=== PATIENT | female | born 1940 | race Caucasian/White ===

== ENCOUNTER 2017-03-19 11:24 | Inpatient (IN) | payer MEDICARE ==
[~2017-03-19] VITALS: Ht 157.5 cm; Wt 80.7 kg
[~2017-03-19 11:24] MED LIST: APIX5TAB PO; HYDR-2666 PO; HYDR12.53 PO; LEVE500T56 PO; LEVO25TA4 PO; LEVO75TA5 PO; METF500T4 PO; METO25TA9 PO; SIMV40TA3 PO; SIMV5TAB5 PO; SULF1TAB24 PO; ZOLP5TAB5 PO
--- NOTE | 2017-03-19 11:43 | EKG ---
[facility] [address] [place] [address] Test Date: 2017-03-19 Test Time: 11:39:08 Pat Name: ALVIN CHAUHAN Department: Room: Gender: F Survey Compiler: : 1940 Requested By: ALEXYS WILLINGHAM Order Number: [id number] Reading MD: Lorraine Sung Measurements Intervals [place] Rate: 92 P: VT: QRS: 11 QRSD: 124 T: 156 QT: 386 QTc: 483 Interpretive Statements ATRIAL FIBRILLATION LVH WITH REPOLARIZATION ABNORMALITY Electronically Signed On 03-21-2017 17:50:44 CDT by Lorraine Sung
[2017-03-19 12:03] LABS: BASO # 0.1 x10^3/uL (0.0-0.2); BASO % 1 % (0-3); EOS % 1 % (0-3); HEMATOCRIT 36.5 % (36.0-47.0); HEMOGLOBIN 12.1 g/dL (12.0-15.5); LYMPH # 1.2 x10^3/uL (1.0-4.8); LYMPH % 16 % (24-48); MEAN CORPUSCULAR HEMOGLOBIN 31 pg (25-35); MEAN CORPUSCULAR HGB CONC 33 g/dL (31-37); MEAN CORPUSCULAR VOLUME 92 fL (79-100); MONO % 8 % (0-9); NEUT % 74 % (31-73); PLATELET COUNT 298 x10^3/uL (140-400); RED BLOOD COUNT 3.97 x10^6/uL (3.50-5.40); RED CELL DISTRIBUTION WIDTH 15.4 % (11.5-14.5); WHITE BLOOD COUNT 7.7 x10^3/uL (4.0-11.0)
[2017-03-19 12:16] LABS: CALCIUM 9.2 mg/dL (8.5-10.1); GFR 53.8; POTASSIUM 3.8 mmol/L (3.5-5.1)
[2017-03-19] MEDS ORDERED: IV NORMAL SALINE 1000ML BAG 1,000 ML IV SCH (12:21)
[2017-03-19] MEDS ORDERED: ACETAMINOPHEN 325 MG TABLET. PO PRN (12:30)
[2017-03-19] MEDS ORDERED: ONDANSETRON PF 4 MG/2 ML VIAL. IV PRN (12:30)
--- NOTE | 2017-03-19 12:31 | PHYS DOC ---
Past Medical History Past Medical History: A-Fib, CHF, CVA, Diabetes-Type II, High Cholesterol, Hypertension, Hypothyroid Additional Past Medical Histor: bladder infection heart cath cardiomyopathy possible CHF Past Surgical History: Other Additional Past Surgical Histo: heart cath Alcohol Use: None Drug Use: None Adult General Chief Complaint Chief Complaint: CHEST PAIN HPI HPI This 76-year-old female who's had worsening exertional type chest pain for the last several weeks and had an acute episode today that was significant loss she was trying to walk. She states she had significant midsternal chest pressure as well as shortness of breath that resolved when she was able to rest. Upon arrival in the rest of patient is in no distress at this time saturating near 100% on room air. She is chest pain-free at this time. Patient does have history of atrial fibrillation on Xarelto therapy. She does not remember when her last heart catheterization was. She follows with Dr. Luci bolivar for her atrial fibrillation. Review of Systems Review of Systems Constitutional: Denies fever or chills [] Eyes: Denies change in visual acuity, redness, or eye pain [] HENT: Denies nasal congestion or sore throat [] Respiratory: Denies cough or shortness of breath [] Cardiovascular: No additional information not addressed in HPI [] GI: Denies abdominal pain, nausea, vomiting, bloody stools or diarrhea [] : Denies dysuria or hematuria [] Musculoskeletal: Denies back pain or joint pain [] Integument: Denies rash or skin lesions [] Neurologic: Denies headache, focal weakness or sensory changes [] Endocrine: Denies polyuria or polydipsia [] Current Medications Current Medications Current Medications Medications (Trade) Dose Ordered Sig/Kassie Start Time Stop Time Status Last Admin Dose Admin Acetaminophen (Tylenol) 650 mg PRN Q4HRS PRN 03/19/17 12:30 03/20/17 12:29 Ondansetron HCl (Zofran) 4 mg PRN Q8HRS PRN 03/19/17 12:30 03/20/17 12:29 Sodium Chloride 1,000 ml @ 100 mls/hr Q10H 03/19/17 12:21 03/20/17 12:20 03/19/17 12:21 100 MLS/HR Allergies Allergies Allergies Coded Allergies Type Severity Reaction Last Updated Verified I S O L A T I O N *CONTACT* Allergy Unknown 04/10/16 Yes No Known Medication Allergies Allergy Unknown 04/10/16 Yes Physical Exam Physical Exam Constitutional: Well developed, well nourished, no acute distress, non-toxic appearance. [] HENT: Normocephalic, atraumatic, bilateral external ears normal, oropharynx moist, no oral exudates, nose normal. [] Eyes: PERRLA, EOMI, conjunctiva normal, no discharge. [] Neck: Normal range of motion, no tenderness, supple, no stridor. [] Cardiovascular:Heart rate regular rhythm, no murmur [] Lungs & Thorax: Bilateral breath sounds clear to auscultation [] Abdomen: Bowel sounds normal, soft, no tenderness, no masses, no pulsatile masses. [] Skin: Warm, dry, no erythema, no rash. [] Back: No tenderness, no CVA tenderness. [] Extremities: No tenderness, no cyanosis, no clubbing, ROM intact, no edema. [] Neurologic: Alert and oriented X 3, normal motor function, normal sensory function, no focal deficits noted. [] Psychologic: Affect normal, judgement normal, mood normal. [] Current Patient Data Vital Signs Vital Signs Date Time Temp Pulse Resp B/P (MAP) Pulse Ox O2 Delivery O2 Flow Rate FiO2 03/19/17 12:00 98 22 133/82 (99) 92 Room Air 03/19/17 11:33 97.8 97.8 Lab Values Laboratory Tests Test 03/19/17 11:52 03/19/17 11:55 POC Troponin I 0.02 ng/ml (<0.08) White Blood Count 7.7 x10^3/uL (4.0-11.0) Red Blood Count 3.97 x10^6/uL (3.50-5.40) Hemoglobin 12.1 g/dL (12.0-15.5) Hematocrit 36.5 % (36.0-47.0) Mean Corpuscular Volume 92 fL (79-100) Mean Corpuscular Hemoglobin 31 pg (25-35) Mean Corpuscular Hemoglobin Concent 33 g/dL (31-37) Red Cell Distribution Width 15.4 % (11.5-14.5) H Platelet Count 298 x10^3/uL (140-400) Neutrophils (%) (Auto) 74 % (31-73) H Lymphocytes (%) (Auto) 16 % (24-48) L Monocytes (%) (Auto) 8 % (0-9) Eosinophils (%) (Auto) 1 % (0-3) Basophils (%) (Auto) 1 % (0-3) Neutrophils # (Auto) 5.7 x10^3uL (1.8-7.7) Lymphocytes # (Auto) 1.2 x10^3/uL (1.0-4.8) Monocytes # (Auto) 0.6 x10^3/uL (0.0-1.1) Eosinophils # (Auto) 0.1 x10^3/uL (0.0-0.7) Basophils # (Auto) 0.1 x10^3/uL (0.0-0.2) Prothrombin Time 23.0 SEC (11.7-14.0) H Prothrombin Time INR 2.2 (0.8-1.1) H PTT 43 SEC (24-38) H Sodium Level 139 mmol/L (136-145) Potassium Level 3.8 mmol/L (3.5-5.1) Chloride Level 100 mmol/L (98-107) Carbon Dioxide Level 27 mmol/L (21-32) Anion Gap 12 (6-14) Blood Urea Nitrogen 19 mg/dL (7-20) Creatinine 1.0 mg/dL (0.6-1.0) Estimated GFR (Cockcroft-Gault) 53.8 Glucose Level 128 mg/dL (70-99) H Calcium Level 9.2 mg/dL (8.5-10.1) Troponin I Quantitative 0.022 ng/mL (0.000-0.055) Laboratory Tests 03/19/17 11:55 Laboratory Tests 03/19/17 11:55 EKG EKG Initial EKG taken at 1139 shows a irregular rhythm with a rate of 92 bpm with what appears to be multiple areas of ischemia. Lead [address] depression as well as leads V5 and V6. This EKG does not meet STEMI criteria Repeat EKG taken at 1201 shows continued irregular rhythm with a rate of 83 bpm with the same leads showing some ST depression in lead 1, V5, V6. Radiology/Procedures Radiology/Procedures One view of the chest as interpreted by me shows no acute cardiopulmonary process. Course & Med Decision Making Course & Med Decision Making Pertinent Labs and Imaging studies reviewed. (See chart for details) 76-year-old female who's having worsening exertional angina symptoms will be admitted to the hospital with cardiology consult. Cardiology team was notified and came down the bedside to evaluate the patient. Sonia with cardiology believes the patient may be able to go to lab later today for her symptoms that she has concerning findings on EKG and her symptoms seem to be cardiac related. Her i-STAT troponin was 0.0 to. Her EKG has some concerning ST findings as mentioned in the interpretation section of this note. Her portable view of her chest did not reveal any acute abnormality. The case was discussed with the hospitalist, Dr. Campos, for admission. The cardiology team evaluated the patient and states she will be going to r&d lab technician later today and will be kept nothing by mouth at this time. I discussed this information with the hospitalist , Dr. Campos, who agreed with this plan and the need for admission. Dragon Disclaimer Dragon Disclaimer This electronic medical record was generated, in whole or in part, using a voice recognition dictation system. Departure Departure Impression: Primary Impression: Chest pain Disposition: ADMITTED INPATIENT Admitting Physician: Neelam Campos Condition: STABLE Referrals: NEELAM CAMPOS MD (PCP) ALEXYS WILLINGHAM DO March 19, 2017 12:31
--- NOTE | 2017-03-19 12:31 | RAD ---
Indication chest pain. A single view of the chest was obtained and is compared to an examination 07/10/2016. Heart size is at the upper limits of normal but unchanged. There is no congestive heart failure. There is no focal infiltrate. Prominent right hilum, consistent with slightly enlarged pulmonary artery is noted similar to the previous exam. An acute parenchymal infiltrate is not seen. Significant pleural fluid is not present. There is no pneumothorax. There has not been a significant change in the appearance of the chest compared to the prior exam. IMPRESSION: No acute process. No significant change
--- NOTE | 2017-03-19 12:57 | PDOC2 ---
RAYA LOCKWOOD [employer]OR [employer] 03/19/17 1257: CARDIAC CONSULT DATE OF CONSULT Date of Consult DATE: 03/19/17 TIME: 12:38 REASON FOR CONSULT Reason for Consult: unstable angina REFERRING PHYSICIAN Referring Physician: Dr. Indra Becerra SOURCE Source: Chart review, Patient HISTORY OF PRESENT ILLNESS HISTORY OF PRESENT ILLNESS 76 year old female with chest pain since 01/14/2017 when she started Levaquin as treatment for UTI. Thought pain was related to antibiotics. Pain substernal and ? stabbing - patient with difficulty describing pain. Now occurs with minimal activity such as washing dishes as well as attempting to walk outside of house. Has about 5 episodes per day lasting approximately 1 minute each and alleviated with rest. Associated with dizziness and difficulty "catching a breath" but not diaphoresis or nausea. Known history of hypertrophic obstructive cardiomyopathy and most recent echo demonstrated a mean gradient of 88 mm Hg and 122 with Valsalva. EKG with mild ST segment depression laterally and V1 (change from 06/2016). Currently pain free on stretcher in ER. Initial troponin not consistent with ACS. Reason for Visit: UA PAST MEDICAL HISTORY Cardiovascular: AFIB (s/p DCCV 06/01/2016), HTN, Hyperlipidemia, Other (HOCM; moderate MR; varicose veins - s/p bilateral RF ablation of GSV) Pulmonary: No pertinent hx CENTRAL NERVOUS SYSTEM: CVA (03/2016) GI: No pertinent hx Heme/Onc: No pertinent hx Hepatobiliary: No pertinent hx Musculoskeletal: Osteoarthritis Rheumatologic: No pertinent hx Infectious disease: No pertinent hx ENT: No pertinent hx Renal/: No pertinent hx, UTI (01/2017) Endocrine: Diabetes, Hypothyroidism Dermatology: No pertinent hx PAST SURGICAL HISTORY Past Surgical History: Breast Biopsy (lumpectomy), Hysterectomy, Other ( bladder suspension; D & C; DCCV) FAMILY HISTORY Family History: Cancer, Heart Disease, Other SOCIAL HISTORY Smoke: No ALCOHOL: none Drugs: None Lives: with Family ALLERGIES ALLERGIES: Coded Allergies: I S O L A T I O N *CONTACT* (Verified Allergy, Unknown, 04/10/16) mrsa screen + No Known Medication Allergies (Verified Allergy, Unknown, 04/10/16) ROS General: No: Chills, Night Sweats, Fatigue, Malaise, Appetite, Other PSYCHOLOGICAL ROS: No: Anxiety, Behavioral Disorder, Concentration difficultie , Decreased libido, Depression, Disorientation, Hallucinations, Hostility, Irritablity, Memory difficulties, Mood Swings, Obsessive thoughts, Physical abuse, Sexual abuse, Sleep disturbances, Suicidal ideation, Other Eyes: Yes Uses glasses, No Blurry vision, No Decreased vision, No Double vision, No Dry eyes, No Excessive tearing, No Eye Pain, No Itchy Eyes, No Loss of vision, No Photophobia , No Scotomata, No Uses contacts, No Other HEENT: No: Heacaches, Visual Changes, Hearing change, Nasal congestion, Nasal discharge, Oral lesions, Sinus pain, Sore Throat, Epistaxis, Sneezing, Snoring, Tinnitus, Vertigo, Vocal changes, Other ALLERGY AND IMMUNOLOGY: YES: Hives Hematological and Lymphatic: No: Bleeding Problems, Blood Clots, Blood Transfusions, Brusing, Night Sweats, Pallor, Swollen Lymph Nodes, Other ENDOCRINE: No: Breast Changes, Galactorrhea, Hair Pattern Changes, Hot Flashes , Malaise/lethargy, Mood Swings, Palpitations, Polydipsia/polyuria, Skin Changes , Temperature Intolerance, Unexpected Weight Changes, Other Respiratory: YES: Shortness of breath, No: Cough, Hemoptysis, Orthopnea, Pleuritic Pain, SOB with excertion, Sputum Changes, Stridor, Tachypnea, Wheezing, Other Cardiovascular: yes Chest Pain Gastrointestinal: No Nausea, No Vomiting, No Abdominal Pain, No Diarrhea, No Constipation, No Melena, No Hematochezia, No Other Genitourinary: No Dysuria, No Frequency, No Incontinence, No Hematuria, No Retention, No Discharge, No Urgency, No Pain, No Flank Pain, No Other Musculoskeletal: No Gait Disturbance, No Joint Pain, No Joint Stiffness, No Joint Swelling, No Muscle Pain, No Muscular Weakness, No Pain In:, No Swelling In:, No Other Neurological: No Behavorial Changes, No Bowel/Bladder ControlChng, No Confusion , No Dizziness, No Gait Disturbance, No Headaches, No Impaired Coord/balance, No Memory Loss, No Numbness/Tingling, No Seizures, No Speech Problems, No Tremors, No Visual Changes, No Weakness, No Other PHYSICAL EXAM General: Alert, Oriented X3, Cooperative, No acute distress HEENT: Atraumatic, PERRLA Lungs: Clear to auscultation, Normal air movement Heart: Regular rate, Normal S1, Normal S2, Other (3-4/6 LLSB and apical radiates to carotids) Abdomen: Normal bowel sounds, Soft, No tenderness Extremities: No edema, Normal pulses (2+ DP and PT bilaterally; 2+ radial) Skin: No rashes Neuro: Normal speech Psych/Mental Status: Mental status NL, Mood NL MUSCULOSKELETAL: Osteoarthritic changes both hands VITALS VITALS Vital Signs Date Time Temp Pulse Resp B/P (MAP) Pulse Ox O2 Delivery O2 Flow Rate FiO2 03/19/17 11:33 97.8 86 20 175/79 (111) 96 Room Air 97.8 LABS Lab: Laboratory Tests Test 03/19/17 11:52 03/19/17 11:55 Bedside Troponin I 0.02 ng/ml (<0.08) White Blood Count 7.7 x10^3/uL (4.0-11.0) Red Blood Count 3.97 x10^6/uL (3.50-5.40) Hemoglobin 12.1 g/dL (12.0-15.5) Hematocrit 36.5 % (36.0-47.0) Mean Corpuscular Volume 92 fL (79-100) Mean Corpuscular Hemoglobin 31 pg (25-35) Mean Corpuscular Hemoglobin Concent 33 g/dL (31-37) Red Cell Distribution Width 15.4 % (11.5-14.5) Platelet Count 298 x10^3/uL (140-400) Neutrophils (%) (Auto) 74 % (31-73) Lymphocytes (%) (Auto) 16 % (24-48) Monocytes (%) (Auto) 8 % (0-9) Eosinophils (%) (Auto) 1 % (0-3) Basophils (%) (Auto) 1 % (0-3) Neutrophils # (Auto) 5.7 x10^3uL (1.8-7.7) Lymphocytes # (Auto) 1.2 x10^3/uL (1.0-4.8) Monocytes # (Auto) 0.6 x10^3/uL (0.0-1.1) Eosinophils # (Auto) 0.1 x10^3/uL (0.0-0.7) Basophils # (Auto) 0.1 x10^3/uL (0.0-0.2) Sodium Level 139 mmol/L (136-145) Potassium Level 3.8 mmol/L (3.5-5.1) Chloride Level 100 mmol/L (98-107) Carbon Dioxide Level 27 mmol/L (21-32) Anion Gap 12 (6-14) Blood Urea Nitrogen 19 mg/dL (7-20) Creatinine 1.0 mg/dL (0.6-1.0) Estimated GFR (Cockcroft-Gault) 53.8 Glucose Level 128 mg/dL (70-99) Calcium Level 9.2 mg/dL (8.5-10.1) Troponin I Quantitative 0.022 ng/mL (0.000-0.055) IMAGES IMAGES CXR - no acute findings EKG EKG see HPI ECHOCARDIOGRAM ECHOCARDIOGRAM 06/2016: TTE The left ventricular systolic function is normal. The Ejection Fraction is estimated at 65-70%. There is normal LV segmental wall motion. Asymmetric septal hypertrophy. 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 LVOT gradient peak 178/mean 88 mm Hg at baseline and peak 204/mean 122 mm Hg with valsalva maneuver. Mild to moderate mitral regurgitation. Mild to moderate tricuspid regurgitation. There is moderate pulmonary hypertension. The PA pressure was estimated at 49 mmHg. There is no evidence of significant pericardial effusion. ASSESSMENT/PLAN ASSESSMENT/PLAN 1. unstable angina pain with minimal activity initial troponin WNL EKG with ST segment depression - mild - laterally and V1; no ST seg elevation hold ASA and hep gtt as OAC with Eliquis for atrial fib; continue BB given progressive nature of symptoms in last 2 months - cardiac cath recommended R/B/A discussed with patient and - agreeable to proceed - will schedule for this afternoon 2. HOCM MG of 88 mm Hg and 122 mm Hg with Valsalva ? may also be etiology of chest pain 3. PAF rate controlled with BB OAC with Eliquis 4. HLD continue statin therapy check FLP in a.m. 5. DM, II per primary service 6. hypothyroidism replacement therapy per primary service ADDENDUM @ 1430: INR 2.2; DISCUSSED WITH PRIMARY CEILING INSTALLER - WILL DELAY CATH UNTIL WEDNESDAY LFTS ORDERED REVIEWED OFFICE NOTE OF 02/22/2017; AST, ALT, ALK PHOS, T BILI ALL WNL Problems: GARCIA SR MD 03/19/17 1540: CARDIAC CONSULT ALLERGIES ALLERGIES: Coded Allergies: I S O L A T I O N *CONTACT* (Verified Allergy, Unknown, 04/10/16) mrsa screen + No Known Medication Allergies (Verified Allergy, Unknown, 04/10/16) ASSESSMENT/PLAN ASSESSMENT/PLAN Patient seen and examined. Agree with DOCUMENTATION WRITER's assessment and plan. Symptoms concerning for unstable angina. INR elevated without any Coumadin on board. Check LFTs. We will plan for cardiac catheterization on Wednesday. Continue Eliquis for atrial fibrillation. Thank you for your consultation. Problems: RAYA LOCKWOOD APRN March 19, 2017 12:57 GARCIA SR MD March 19, 2017 15:40
[2017-03-19 13:01] LABS: INR 2.2 (0.8-1.1)
[2017-03-19 14:40] LABS: ALBUMIN 3.6 g/dL (3.4-5.0); DIRECT BILIRUBIN 0.2 mg/dL (0.0-0.2); TOTAL BILIRUBIN 0.8 mg/dL (0.2-1.0); TOTAL PROTEIN 7.5 g/dL (6.4-8.2)
[2017-03-19 14:59] VITALS: BP 163/101
[2017-03-19 15:00] VITALS: BP 163/101
--- NOTE | 2017-03-19 18:23 | ACF ---
Admission Forms Criteria CARDIOLOGY GRG Clinical Indications for Admission to Inpatient Care ( Place 'X' for any and all applicable criteria): Hospital admission is needed for appropriate care of the patient because of ANY ONE of the following (1): [ ] I. Hemodynamic instability as indicated by ALL of the following (1)(2)(3) (4)(5) [ ]a) Vital signs or other findings not as expected for chronic patient condition or baseline [ ]b) Instability indicated by ANY ONE of the following: [ ]i) Hypotension [ ]ii) Symptomatic Tachycardia unresponsive to treatment ( e.g., analgesia, fluids, sedation as indicated) [ ]iii) Inadequate perfusion indicated by ANY ONE of the following: [ ] 1) Lactic acidosis (> 2 mmol/L) [ ] 2) New abnormal capillary refill (> 3 seconds) [ ] 3) Reduced urine output [ ] 4) New altered mental status [ ]iv) Orthostatic vital sign changes unresponsive to treatment (e.g., fluids) [ ]v) IV inotropic or vasopressor medication required to maintain adequate blood pressure or perfusion [ ] II. Severe heart failure as indicated by ANY ONE of the following(17)(18) [ ]a) Respiratory distress [ ]b) Hypotension [ ]c) Anasarca (refractory to outpatient therapy) [ ]d) Cardiac arrhythmias of immediate concern [ ]e) Myocardial ischemia [ ] III. Cardiac arrhythmias or findings of immediate concern indicated by ANY ONE of the following (19)(20): [ ] a) Heart rhythms that are inherently dangerous or unstable indicated by ANY ONE of the following (21)(22)(23): [ ] i) Resuscitated ventricular fibrillation or cardiac arrest [ ] ii) Ventricular escape rhythm [ ] iii) Sustained ventricular tachycardia (30 seconds or more of ventricular rhythm at greater than 100 beats per minute) [ ] iv) Nonsustained ventricular tachycardia and ANY ONE of the following: [ ] 1) Suspected cardiac ischemia as cause or consequence of ventricular tachycardia [ ] 2) In setting of acute myocarditis [ ] b) Unstable cardiac conduction defects indicated by ANY ONE of the following(23)(24)(25) [ ] i) Type II second-degree atrioventricular block [ ]ii) Third-degree atrioventricular block [ ]iii) New-onset left bundle branch block with suspected myocardial ischemia [ ]c) Any heart rhythm and ANY ONE of the following (21)(22)(26)(27) (28) [ ] i) Continuous long-term ECG monitoring needed (e.g., initiation of drug requiring monitoring for more than 24 hours) [ ] ii) Patient has automatic implanted cardioverter defibrillator that is repeatedly firing, malfunctioning, or in need of immediate adjustment of settings beyond the scope of ambulatory or observation care [ ]d) Heart rhythms of concern due to ANY ONE of the following: [ ] i) Hypotension [ ] ii) Respiratory distress [ ] iii) Association with other significant symptoms (e.g., bradycardia with syncope or ongoing dizziness, supraventricular tachycardia with chest pain (14)(15)(17) [ ] IV. Monitoring for cardiac contusion beyond the scope of observation care needed [A](30)(31)(32) [ ] V. Surgical or device complication (e.g., valve replacement complication , pacemaker dysfunction) (35)(41)(44)(45)(46) [ ] . Inpatient palliative care needed. [B](49) Also use Inpatient Palliative Care Criteria [ ] VII. Nonbacterial thrombotic (marantic) endocarditis (36)(43)(47)(48) [X] VIII. Cardiology condition, symptom, or finding for which emergency and observation care has failed or are not considered appropriate. [ ] IX. Acute valvular disease requiring inpatient as indicated by ANY ONE of the following (41) [ ]a) Acute valvular regurgitation (42) [ ]b) Noninfectious valvulitis (43) [ ]c) Obstructive valve thrombosis [ ]d) Paravalvular leak [ ]e) Other significant valvular disorder remaining after emergency or observation level of care (as appropriate) [ ]X. Pericardial disease requiring inpatient treatment as indicated by ANY ONE of the following (33)(34)(35)(36)(37) [ ]a) Suspected tamponade (38)(39)(40) [ ]b) Hemopericardium [ ]c) Other significant pericardial disorder remaining after emergency or observation level of care (as appropriate) [ ] XI. Cardiac ischemia beyond scope of emergency and observation care. [ ] XII. Hypertension requiring inpatient treatment as indicated by ANY ONE of the following (6)(7)(8) [ ]a) SBP greater than 220 mm Hg or DBP greater than 120 mmHg despite treatment [ ]b) SBP greater than 140 mm Hg or DBP greater than 100 mm Hg with evidence of acute end organ damage as indicated by ANY ONE of the following [ ] i) Encephalopathy [ ] ii) Acute renal failure as indicated by new onset of ANY ONE of the following (9)(10)(11)(12)(13) [ ]1) 3-fold rise in serum creatinine from baseline [ ]2) Serum creatinine greater than 4 mg/dL ( 354 micromoles/L) with acute rise greater than 0.5 mg/dL (44.2 micromoles/L) [ ]3) Reduction of more than 75% in estimated glomerular filtration rate from baseline [ ]4) Estimated glomerular filtration rate less than 35 mL/min/1.73m2 (0.59 mL/sec/1.73m2) in child up to 18 years of age [ ]5) Cessation of urine output indicated by ALL of the following [ ]A. Adequate volume status [ ]B. Inadequate urine output as indicated by ANY ONE of the following [ ]a. Urine output less than 0.3 mL/kg/hr for 24 hours [ ]b. Anuria (urine output less than 0.1 mL/kg/hr) for 12 hours [ ] iii) Aortic dissection [ ] iv) Myocardial Ischemia [ ] v) Left ventricular heart failure [ ]vi) Retinal Hemorrhage [ ]vii) Other significant finding [ ]c) Hypertension in child requiring inpatient treatment as indicated by ALL of the following(14)(15)(16) [ ] i) Outpatient treatment not effective, not available, or not appropriate [ ]ii) SBP or DBP greater than 95th percentile for age [ ]iii) Evidence of acute end organ damage as indicated by ANY ONE of the following [ ]1) Altered mental status [ ]2) Acute renal failure as indicated by new onset of ANY ONE of the following(9)(10)(11)(12)(13) [ ]A. 3-fold rise in serum creatinine from baseline [ ]B. Serum creatinine greater than 4 mg/dL (354 micromoles/L) with acute rise greater than 0.5 mg/dL (44.2 micromoles/L) [ ]C. Reduction of more than 75% in estimated glomerular filtration rate from baseline [ ]D. Estimated glomerular filtration rate less than 35 mL/min/1.73m2 (0.59 mL/sec/1.73m2) in child up to 18 years of age [ ]E. Cessation of urine output indicated by ALL of the following [ ]a. Adequate volume status [ ]b. Inadequate urine output as indicated by ANY ONE of the following [ ]i) Urine output less than 0.3 mL/kg/hr for 24 hours [ ]ii) Anuria ( urine output less than 0.1 mL/kg/hr) for 12 hours [ ]3) Severe headache [ ]4) Visual disturbance [ ]5) Retinal hemorrhage [ ]6) Other significant finding [ ]XIII. Complications of transplanted heart indicated by ANY ONE of the following(61): [ ]a) Acute graft rejection requiring inpatient management (eg, intravenous immunosuppression)(62)(63) [ ]b) Acute graft heart failure indicated by ANY ONE of the following(64): [ ]i) Hemodynamic instability [ ]ii) Cardiac arrhythmias of immediate concern [ ]iii) Pulmonary edema that is very severe (eg, mechanical ventilation needed, imminent or likely, need for 100% oxygen to keep oxygen saturation above 90%) [ ]iv) Pulmonary edema that is persistent as indicated by ALL of the following: [ ]1) New need for oxygen therapy to keep oxygen saturation above 90% (or increased FiO2 need from baseline) [ ]2) Has not improved sufficiently with emergency department or observation care IV diuretics or other heart failure treatments[E] [ ]v) Altered mental status that is severe or persistent [ ]vi) Increased creatinine (new on laboratory test) with reduction of more than 50% in estimated glomerular filtration rate from baseline [ ]vii) Progressively (ongoing) rising creatinine (known from past laboratory test) with reduction of more than 25% in estimated glomerular filtration rate from baseline [ ]viii) Acute renal failure [ ]ix) Acute peripheral ischemia (eg, examination shows pulseless, cool, mottled, or cyanotic extremity) [ ]x) Pulmonary artery catheter monitoring needed [ ]xi) Other sign or symptom of heart failure requiring inpatient treatment (ie, too severe or not responsive to outpatient and observation care treatment) [ ]c) Infection requiring inpatient management (eg, Hemodynamic instability, need for intravenous antimicrobial treatment)(66)(67)(68)(69)(70) [ ]d) Cardiac allograft vasculopathy requiring inpatient management ( eg evidence of cardiac ischemia)(71) [ ]e) Other complication of transplanted heart (eg, stroke, severe pulmonary hypertension, severe valvular dysfunction) requiring inpatient management(72) The original [facility] content created by [facility] has been revised. The portions of the content which have been revised are identified through the use of italic text or in bold, and [facility] has neither reviewed nor approved the modified material. All other unmodified content is copyright [facility]. Please see references footnoted in the original [facility] edition 2016 Admission Criteria Met?: Yes KUMAR KIM March 19, 2017 18:23
[2017-03-19] MEDS ORDERED: FUROSEMIDE 20 MG/2 ML VIAL. IVP ONE (18:45)
[2017-03-19 19:20] VITALS: BP 180/77
[2017-03-19] MEDS: SIMVASTATIN 40 MG TABLET. PO SCH (20:34)
[2017-03-19] MEDS: levETIRAcetam 500 MG TABLET PO SCH (20:34)
[2017-03-19] MEDS ORDERED: ZOLPIDEM 5 MG TABLET. PO SCH (21:00)
[2017-03-19] MEDS ORDERED: ZOLPIDEM 5 MG TABLET. PO PRN (21:00)
[2017-03-19 23:47] VITALS: BP 135/79
[2017-03-20 03:00] VITALS: BP 120/68
[2017-03-20 06:13] LABS: CHOLESTEROL/HDL RATIO 2.5
[2017-03-20] MEDS: LEVOTHYROXINE 75 MCG TABLET PO SCH (06:37)
[2017-03-20 07:00] VITALS: BP 148/89
[2017-03-20] MEDS: metFORMIN 500 MG TABLET PO SCH ×2 (07:40→17:06)
[2017-03-20] MEDS: levETIRAcetam 500 MG TABLET PO SCH ×2 (07:40→20:39)
[2017-03-20] MEDS: APIXABAN 5 MG TABLET. PO SCH ×2 (07:40→20:39)
[2017-03-20] MEDS: hydroCHLOROthiazide 25 MG TABLET PO SCH (07:40)
[2017-03-20] MEDS: METOPROLOL SUCC 24HR ER 25 MG TAB.ER.24H. PO SCH (07:42)
[2017-03-20 11:00] VITALS: BP 149/67
--- NOTE | 2017-03-20 11:18 | PDOC ---
PROGRESS NOTES Subjective Subjective Patient seen and examined The patient is more comfortable today. Objective Objective Vital Signs Date Time Temp Pulse Resp B/P (MAP) Pulse Ox O2 Delivery O2 Flow Rate FiO2 03/20/17 08:00 Room Air 03/20/17 07:42 112 148/89 03/20/17 07:00 98.0 18 98 98.0 Intake and Output 03/20/17 07:00 Intake Total 360 ml Output Total 1800 ml Balance -1440 ml Intake Oral 360 ml Output Urine Total 1800 ml # Voids 4 Physical Exam Abdomen: Normal bowel sounds Heart: Regular rate Extremities: No edema General: No acute distress HEENT: Atraumatic Lungs: Clear to auscultation Assessment Assessment Problems Medical Problems: (1) Chest pain Status: Acute 1. unstable angina pain with minimal activity, improved today initial troponin WNL EKG with ST segment depression - mild - laterally and V1; no ST seg elevation hold ASA and hep gtt as OAC with Eliquis for atrial fib; continue BB given progressive nature of symptoms in last 2 months - cardiac cath recommended Due to elevated INR catheter tentatively scheduled for Wednesday 2. HOCM MG of 88 mm Hg and 122 mm Hg with Valsalva ? may also be etiology of chest pain 3. PAF rate controlled with BB OAC with Eliquis 4. HLD continue statin therapy 5. DM, II per primary service 6. hypothyroidism replacement therapy per primary service Comment Review of Relevant I have reviewed the following items ariadna (where applicable) has been applied. Labs Laboratory Tests Test 03/19/17 11:52 03/19/17 11:55 03/19/17 18:00 03/20/17 00:35 Bedside Troponin I 0.02 ng/ml (<0.08) White Blood Count 7.7 x10^3/uL (4.0-11.0) Red Blood Count 3.97 x10^6/uL (3.50-5.40) Hemoglobin 12.1 g/dL (12.0-15.5) Hematocrit 36.5 % (36.0-47.0) Mean Corpuscular Volume 92 fL (79-100) Mean Corpuscular Hemoglobin 31 pg (25-35) Mean Corpuscular Hemoglobin Concent 33 g/dL (31-37) Red Cell Distribution Width 15.4 % (11.5-14.5) Platelet Count 298 x10^3/uL (140-400) Neutrophils (%) (Auto) 74 % (31-73) Lymphocytes (%) (Auto) 16 % (24-48) Monocytes (%) (Auto) 8 % (0-9) Eosinophils (%) (Auto) 1 % (0-3) Basophils (%) (Auto) 1 % (0-3) Neutrophils # (Auto) 5.7 x10^3uL (1.8-7.7) Lymphocytes # (Auto) 1.2 x10^3/uL (1.0-4.8) Monocytes # (Auto) 0.6 x10^3/uL (0.0-1.1) Eosinophils # (Auto) 0.1 x10^3/uL (0.0-0.7) Basophils # (Auto) 0.1 x10^3/uL (0.0-0.2) Prothrombin Time 23.0 SEC (11.7-14.0) Prothromb Time International Ratio 2.2 (0.8-1.1) Activated Partial Thromboplast Time 43 SEC (24-38) Sodium Level 139 mmol/L (136-145) Potassium Level 3.8 mmol/L (3.5-5.1) Chloride Level 100 mmol/L (98-107) Carbon Dioxide Level 27 mmol/L (21-32) Anion Gap 12 (6-14) Blood Urea Nitrogen 19 mg/dL (7-20) Creatinine 1.0 mg/dL (0.6-1.0) Estimated GFR (Cockcroft-Gault) 53.8 Glucose Level 128 mg/dL (70-99) Calcium Level 9.2 mg/dL (8.5-10.1) Total Bilirubin 0.8 mg/dL (0.2-1.0) Direct Bilirubin 0.2 mg/dL (0.0-0.2) Aspartate Amino Transf (AST/SGOT) 26 U/L (15-37) Alanine Aminotransferase (ALT/SGPT) 22 U/L (14-59) Alkaline Phosphatase 77 U/L (46-116) Troponin I Quantitative 0.022 ng/mL (0.000-0.055) 0.023 ng/mL (0.000-0.055) 0.030 ng/mL (0.000-0.055) KV-Kng-S-Type Natriuretic Peptide 3516 pg/mL (0-449) Total Protein 7.5 g/dL (6.4-8.2) Albumin 3.6 g/dL (3.4-5.0) Test 03/20/17 02:30 Triglycerides Level 75 mg/dL (0-150) Cholesterol Level 131 mg/dL (0-200) LDL Cholesterol, Calculated 63 mg/dL (0-100) VLDL Cholesterol, Calculated 15 mg/dL (0-40) Non-HDL Cholesterol Calculated 78 mg/dL (0-129) HDL Cholesterol 53 mg/dL (40-60) Cholesterol/HDL Ratio 2.5 Laboratory Tests Test 03/19/17 11:52 03/19/17 11:55 03/19/17 18:00 03/20/17 00:35 Bedside Troponin I 0.02 ng/ml (<0.08) White Blood Count 7.7 x10^3/uL (4.0-11.0) Red Blood Count 3.97 x10^6/uL (3.50-5.40) Hemoglobin 12.1 g/dL (12.0-15.5) Hematocrit 36.5 % (36.0-47.0) Mean Corpuscular Volume 92 fL (79-100) Mean Corpuscular Hemoglobin 31 pg (25-35) Mean Corpuscular Hemoglobin Concent 33 g/dL (31-37) Red Cell Distribution Width 15.4 % (11.5-14.5) Platelet Count 298 x10^3/uL (140-400) Neutrophils (%) (Auto) 74 % (31-73) Lymphocytes (%) (Auto) 16 % (24-48) Monocytes (%) (Auto) 8 % (0-9) Eosinophils (%) (Auto) 1 % (0-3) Basophils (%) (Auto) 1 % (0-3) Neutrophils # (Auto) 5.7 x10^3uL (1.8-7.7) Lymphocytes # (Auto) 1.2 x10^3/uL (1.0-4.8) Monocytes # (Auto) 0.6 x10^3/uL (0.0-1.1) Eosinophils # (Auto) 0.1 x10^3/uL (0.0-0.7) Basophils # (Auto) 0.1 x10^3/uL (0.0-0.2) Prothrombin Time 23.0 SEC (11.7-14.0) Prothromb Time International Ratio 2.2 (0.8-1.1) Activated Partial Thromboplast Time 43 SEC (24-38) Sodium Level 139 mmol/L (136-145) Potassium Level 3.8 mmol/L (3.5-5.1) Chloride Level 100 mmol/L (98-107) Carbon Dioxide Level 27 mmol/L (21-32) Anion Gap 12 (6-14) Blood Urea Nitrogen 19 mg/dL (7-20) Creatinine 1.0 mg/dL (0.6-1.0) Estimated GFR (Cockcroft-Gault) 53.8 Glucose Level 128 mg/dL (70-99) Calcium Level 9.2 mg/dL (8.5-10.1) Total Bilirubin 0.8 mg/dL (0.2-1.0) Direct Bilirubin 0.2 mg/dL (0.0-0.2) Aspartate Amino Transf (AST/SGOT) 26 U/L (15-37) Alanine Aminotransferase (ALT/SGPT) 22 U/L (14-59) Alkaline Phosphatase 77 U/L (46-116) Troponin I Quantitative 0.022 ng/mL (0.000-0.055) 0.023 ng/mL (0.000-0.055) 0.030 ng/mL (0.000-0.055) QD-Owc-K-Type Natriuretic Peptide 3516 pg/mL (0-449) Total Protein 7.5 g/dL (6.4-8.2) Albumin 3.6 g/dL (3.4-5.0) Test 03/20/17 02:30 Triglycerides Level 75 mg/dL (0-150) Cholesterol Level 131 mg/dL (0-200) LDL Cholesterol, Calculated 63 mg/dL (0-100) VLDL Cholesterol, Calculated 15 mg/dL (0-40) Non-HDL Cholesterol Calculated 78 mg/dL (0-129) HDL Cholesterol 53 mg/dL (40-60) Cholesterol/HDL Ratio 2.5 Medications Current Medications Ondansetron HCl (Zofran) 4 mg PRN Q8HRS PRN IV NAUSEA/VOMITING; Start 03/19/17 at 12:30; Stop 03/20/17 at 12:29 Sodium Chloride 1,000 ml @ 100 mls/hr Q10H IV Last administered on 03/19/17 12 :21; Start 03/19/17 at 12:21; Stop 03/19/17 at 17:44; Status DC Acetaminophen (Tylenol) 650 mg PRN Q4HRS PRN PO FEVER Last administered on 01:13; Start 03/19/17 at 12:30; Stop 03/20/17 at 12:29 Metoprolol Succinate (Toprol Xl) 25 mg DAILY PO Last administered on 03/20/17 07:42; Start 03/20/17 at 09:00 Furosemide (Lasix) 20 mg 1X ONCE IVP Last administered on 03/19/17 19:45; Start 03/19/17 at 18:45; Stop 03/19/17 at 18:46; Status DC Hydrochlorothiazide (Hydrodiuril) 25 mg DAILY PO Last administered on 03/20/17 07:40; Start 03/20/17 at 09:00 Levetiracetam (Keppra) 500 mg BID PO Last administered on 03/20/17 07:40; Start 03/19/17 at 21:00 Levothyroxine Sodium (Synthroid) 75 mcg DAILYAC PO Last administered on 06:37; Start 03/20/17 at 07:30 Metformin HCl (Glucophage) 500 mg BIDWMEALS PO Last administered on 03/20/17 07 :40; Start 03/20/17 at 08:00 Simvastatin (Zocor) 40 mg HS PO Last administered on 03/19/17 20:34; Start 03/19 at 21:00 Zolpidem Tartrate (Ambien) 5 mg HS PO ; Start 03/19/17 at 21:00; Stop 03/19/17 at 21:00; Status DC Zolpidem Tartrate (Ambien) 5 mg HS PRN PO INSOMNIA; Start 03/19/17 at 21:00 Apixaban (Eliquis) 5 mg BID PO Last administered on 03/20/17 07:40; Start at 09:00 Active Scripts Active Bactrim Ds Tablet (Sulfamethoxazole/Trimethoprim) 1 Each Tablet 1 Tab PO BID Keppra (Levetiracetam) 500 Mg Tablet 500 Mg PO BID Reported Eliquis (Apixaban) 5 Mg Tablet 5 Mg PO BID next dose tonight, 07/12 at 9 PM Metoprolol Succinate ( Xl ) (Metoprolol Succinate) 25 Mg Tab.er.24h 1 Tab PO DAILY Next dose tomorrow 07/13/16 9 AM Simvastatin 40 Mg Tablet 40 Mg PO HS next dose tonight, 07/12 at 9 PM Levothyroxine Sodium 75 Mcg Tablet 75 Mcg PO DAILYAC next dose tomorrow morning 07/13/16 one hour before breakfast Metformin Hcl 500 Mg Tablet 1 Tab PO BID next dose tonight, 07/12 at 9 PM Hydrochlorothiazide Capsule (Hydrochlorothiazide) 12.5 Mg Capsule 25 Mg PO DAILY next dose tomorrow 07/13/16 at 9 AM Zolpidem Tartrate 5 Mg Tablet 5 Mg PO Next dose tonight 07/12/16 at bedtime. Vitals/I & O Vital Sign - Last 24 Hours 03/19/17 03/19/17 03/19/17 03/19/17 11:33 12:00 13:00 13:30 Temp 97.8 97.8 Pulse 86 98 80 70 Resp 20 22 27 17 B/P (MAP) 175/79 (111) 133/82 (99) 125/79 (94) 145/59 (87) Pulse Ox 96 92 94 94 O2 Delivery Room Air Room Air Room Air Room Air 03/19/17 03/19/17 03/19/17 03/19/17 14:59 15:00 15:00 15:00 Temp 97.6 97.6 207.7 97.6 97.6 207.7 Pulse 75 75 75 Resp 20 20 18 B/P (MAP) 163/101 (121) 163/101 (121) 163/101 (121) Pulse Ox 97 97 97 O2 Delivery Room Air Room Air Room Air Room Air 03/19/17 03/19/17 03/19/17 03/20/17 19:20 19:20 23:47 03:00 Temp 98.4 98.3 98.3 98.4 98.3 98.3 Pulse 66 96 108 Resp 18 18 18 B/P (MAP) 180/77 (111) 135/79 (97) 120/68 (85) Pulse Ox 96 92 93 O2 Delivery Room Air Room Air Room Air Room Air 03/20/17 03/20/17 03/20/17 07:00 07:42 08:00 Temp 98.0 98.0 Pulse 89 112 Resp 18 B/P (MAP) 148/89 (108) 148/89 Pulse Ox 98 O2 Delivery Room Air Room Air Intake and Output 03/19/17 03/19/17 03/20/17 15:00 23:00 07:00 Intake Total 360 ml Output Total 500 ml 1300 ml Balance -140 ml -1300 ml JULIA PALM MD March 20, 2017 11:18
[2017-03-20 15:00] VITALS: BP 115/76
[2017-03-20 19:00] VITALS: BP 165/65
[2017-03-20] MEDS: SIMVASTATIN 40 MG TABLET. PO SCH (20:39)
--- NOTE | 2017-03-20 21:50 | HP ---
ADMIT DATE: 03/19/2017 CHIEF COMPLAINT: Chest pain. HISTORY OF PRESENT ILLNESS AND HOSPITAL COURSE: This patient is a 76-year-old female with multiple medical issues, came to Emergency Room with worsening exertional-type chest pain. This had been going on for several weeks and she had a more acute episode on the day of admission, which happened while she was trying to take a walk. She complained of midsternal chest pain with shortness of breath, but no significant diaphoresis. Due to the recurrent nature and the association with activity, the patient was admitted for further evaluation and cardiology consultation. PAST MEDICAL HISTORY: Significant for: 1. Chronic atrial fibrillation. 2. Cardiomyopathy. 3. Hypertension. 4. Hypothyroidism. 5. Hyperlipidemia. 6. Type 2 diabetes. 7. Osteoarthritis. 8. Venous insufficiency, status post saphenous vein ablation. 9. CVA. 10. High cholesterol. PAST SURGICAL HISTORY: Significant for breast ____ removal, hysterectomy, bladder suspension and previous D and C. FAMILY HISTORY: Significant for mother who with cancer and the father who with heart disease. SOCIAL HISTORY: The patient has never smoked and does not use alcohol. She is and has excellent social support from 4 children. ALLERGIES: The patient denies any drug allergies. REVIEW OF SYSTEMS: The patient was doing well until recent episodes of chest pain. The patient denies fever, cough, congestion or significant shortness of breath at rest. PHYSICAL EXAMINATION: GENERAL: This is a well-nourished, well-developed female in no apparent distress during my evaluation several hours after admission. HEENT: Benign. NECK: Supple, without JVD or bruit. CARDIAC: Showed atrial fibrillation with a rate of 92. ABDOMEN: Soft, nontender. EXTREMITIES: 2+ pulses without significant edema. NEUROLOGIC: Showed no unilateral findings. ASSESSMENT: 1. Acute coronary syndrome. 2. Recurrent chronic atrial fibrillation. 3. Type 2 diabetes. 4. Hypothyroidism. PLAN: To proceed with cardiology consultation, cardiac catheterization once stable. Continue to manage and support current medical issues. DOREEN DICKENS MD DR: NABEEL/stephanie JOB#: [id number] / [id number]
[2017-03-20 22:30] VITALS: BP 174/79
[2017-03-20] MEDS ORDERED: ACETAMINOPHEN 325 MG TABLET. PO PRN (22:45)
[2017-03-21 03:11] VITALS: BP 121/67
[2017-03-21] MEDS: LEVOTHYROXINE 75 MCG TABLET PO SCH (06:20)
[2017-03-21 06:34] LABS: BASO # 0.1 x10^3/uL (0.0-0.2); BASO % 1 % (0-3); EOS % 3 % (0-3); HEMATOCRIT 37.6 % (36.0-47.0); HEMOGLOBIN 12.3 g/dL (12.0-15.5); LYMPH # 1.4 x10^3/uL (1.0-4.8); LYMPH % 21 % (24-48); MEAN CORPUSCULAR HEMOGLOBIN 30 pg (25-35); MEAN CORPUSCULAR HGB CONC 33 g/dL (31-37); MEAN CORPUSCULAR VOLUME 92 fL (79-100); MONO % 10 % (0-9); NEUT % 66 % (31-73); PLATELET COUNT 292 x10^3/uL (140-400); RED BLOOD COUNT 4.08 x10^6/uL (3.50-5.40); RED CELL DISTRIBUTION WIDTH 15.3 % (11.5-14.5); WHITE BLOOD COUNT 6.9 x10^3/uL (4.0-11.0)
[2017-03-21 06:49] LABS: CALCIUM 9.3 mg/dL (8.5-10.1); GFR 53.8; POTASSIUM 3.2 mmol/L (3.5-5.1)
[2017-03-21 07:00] VITALS: BP 111/59
[2017-03-21] MEDS: metFORMIN 500 MG TABLET PO SCH ×2 (08:00→16:46)
[2017-03-21] MEDS: APIXABAN 5 MG TABLET. PO SCH (08:05)
[2017-03-21] MEDS: METOPROLOL SUCC 24HR ER 25 MG TAB.ER.24H. PO SCH (08:06)
[2017-03-21] MEDS: levETIRAcetam 500 MG TABLET PO SCH ×2 (08:07→20:36)
[2017-03-21] MEDS: hydroCHLOROthiazide 25 MG TABLET PO SCH (08:07)
[2017-03-21 11:00] VITALS: BP 151/64
[2017-03-21] MEDS ORDERED: POTASSIUM CHLORIDE 20 MEQ TABLET.ER. PO ONE ×2 (12:00→17:00)
--- NOTE | 2017-03-21 13:16 | PDOC ---
PROGRESS NOTES Subjective Subjective The patient is feeling better today. No chest discomfort. Objective Objective Vital Signs Date Time Temp Pulse Resp B/P (MAP) Pulse Ox O2 Delivery O2 Flow Rate FiO2 03/21/17 11:00 98.6 84 20 151/64 (93) 94 Room Air 98.6 Intake and Output 03/21/17 07:00 Intake Total 1360 ml Output Total 550 ml Balance 810 ml Intake Oral 1360 ml Output Urine Total 550 ml # Voids 9 Physical Exam Abdomen: Normal bowel sounds Heart: Other (irregularly irregular) Extremities: No clubbing General: No acute distress HEENT: PERRLA Lungs: Clear to auscultation Assessment Assessment Problems Medical Problems: (1) Chest pain Status: Acute 1. unstable angina improved today initial troponin WNL EKG with ST segment depression - mild - laterally and V1; no ST seg elevation Holding anticoagulation, continue BB given progressive nature of symptoms in last 2 months - cardiac cath recommended Due to elevated INR catheter tentatively scheduled for Wednesday 2. HOCM MG of 88 mm Hg and 122 mm Hg with Valsalva ? may also be etiology of chest pain 3. PAF rate controlled with BB OAC with Eliquis, now on hold 4. HLD continue statin therapy 5. DM, II per primary service 6. hypothyroidism replacement therapy per primary service Comment Review of Relevant I have reviewed the following items ariadna (where applicable) has been applied. Labs Laboratory Tests Test 03/19/17 18:00 03/19/17 21:50 03/20/17 00:35 03/20/17 02:30 Troponin I Quantitative 0.023 ng/mL (0.000-0.055) 0.030 ng/mL (0.000-0.055) Nasal Screen MRSA (PCR) Negative (Negative) Triglycerides Level 75 mg/dL (0-150) Cholesterol Level 131 mg/dL (0-200) LDL Cholesterol, Calculated 63 mg/dL (0-100) VLDL Cholesterol, Calculated 15 mg/dL (0-40) Non-HDL Cholesterol Calculated 78 mg/dL (0-129) HDL Cholesterol 53 mg/dL (40-60) Cholesterol/HDL Ratio 2.5 Test 03/20/17 20:39 03/21/17 05:00 Glucose (Fingerstick) 119 mg/dL (70-99) White Blood Count 6.9 x10^3/uL (4.0-11.0) Red Blood Count 4.08 x10^6/uL (3.50-5.40) Hemoglobin 12.3 g/dL (12.0-15.5) Hematocrit 37.6 % (36.0-47.0) Mean Corpuscular Volume 92 fL (79-100) Mean Corpuscular Hemoglobin 30 pg (25-35) Mean Corpuscular Hemoglobin Concent 33 g/dL (31-37) Red Cell Distribution Width 15.3 % (11.5-14.5) Platelet Count 292 x10^3/uL (140-400) Neutrophils (%) (Auto) 66 % (31-73) Lymphocytes (%) (Auto) 21 % (24-48) Monocytes (%) (Auto) 10 % (0-9) Eosinophils (%) (Auto) 3 % (0-3) Basophils (%) (Auto) 1 % (0-3) Neutrophils # (Auto) 4.5 x10^3uL (1.8-7.7) Lymphocytes # (Auto) 1.4 x10^3/uL (1.0-4.8) Monocytes # (Auto) 0.7 x10^3/uL (0.0-1.1) Eosinophils # (Auto) 0.2 x10^3/uL (0.0-0.7) Basophils # (Auto) 0.1 x10^3/uL (0.0-0.2) Sodium Level 139 mmol/L (136-145) Potassium Level 3.2 mmol/L (3.5-5.1) Chloride Level 101 mmol/L (98-107) Carbon Dioxide Level 32 mmol/L (21-32) Anion Gap 6 (6-14) Blood Urea Nitrogen 20 mg/dL (7-20) Creatinine 1.0 mg/dL (0.6-1.0) Estimated GFR (Cockcroft-Gault) 53.8 Glucose Level 107 mg/dL (70-99) Calcium Level 9.3 mg/dL (8.5-10.1) Laboratory Tests Test 03/20/17 20:39 03/21/17 05:00 Glucose (Fingerstick) 119 mg/dL (70-99) White Blood Count 6.9 x10^3/uL (4.0-11.0) Red Blood Count 4.08 x10^6/uL (3.50-5.40) Hemoglobin 12.3 g/dL (12.0-15.5) Hematocrit 37.6 % (36.0-47.0) Mean Corpuscular Volume 92 fL (79-100) Mean Corpuscular Hemoglobin 30 pg (25-35) Mean Corpuscular Hemoglobin Concent 33 g/dL (31-37) Red Cell Distribution Width 15.3 % (11.5-14.5) Platelet Count 292 x10^3/uL (140-400) Neutrophils (%) (Auto) 66 % (31-73) Lymphocytes (%) (Auto) 21 % (24-48) Monocytes (%) (Auto) 10 % (0-9) Eosinophils (%) (Auto) 3 % (0-3) Basophils (%) (Auto) 1 % (0-3) Neutrophils # (Auto) 4.5 x10^3uL (1.8-7.7) Lymphocytes # (Auto) 1.4 x10^3/uL (1.0-4.8) Monocytes # (Auto) 0.7 x10^3/uL (0.0-1.1) Eosinophils # (Auto) 0.2 x10^3/uL (0.0-0.7) Basophils # (Auto) 0.1 x10^3/uL (0.0-0.2) Sodium Level 139 mmol/L (136-145) Potassium Level 3.2 mmol/L (3.5-5.1) Chloride Level 101 mmol/L (98-107) Carbon Dioxide Level 32 mmol/L (21-32) Anion Gap 6 (6-14) Blood Urea Nitrogen 20 mg/dL (7-20) Creatinine 1.0 mg/dL (0.6-1.0) Estimated GFR (Cockcroft-Gault) 53.8 Glucose Level 107 mg/dL (70-99) Calcium Level 9.3 mg/dL (8.5-10.1) Medications Current Medications Ondansetron HCl (Zofran) 4 mg PRN Q8HRS PRN IV NAUSEA/VOMITING; Start 03/19/17 at 12:30; Stop 03/20/17 at 12:29; Status DC Sodium Chloride 1,000 ml @ 100 mls/hr Q10H IV Last administered on 03/19/17 12 :21; Start 03/19/17 at 12:21; Stop 03/19/17 at 17:44; Status DC Acetaminophen (Tylenol) 650 mg PRN Q4HRS PRN PO FEVER Last administered on 01:13; Start 03/19/17 at 12:30; Stop 03/20/17 at 12:29; Status DC Metoprolol Succinate (Toprol Xl) 25 mg DAILY PO Last administered on 03/21/17 08:06; Start 03/20/17 at 09:00 Furosemide (Lasix) 20 mg 1X ONCE IVP Last administered on 03/19/17 19:45; Start 03/19/17 at 18:45; Stop 03/19/17 at 18:46; Status DC Hydrochlorothiazide (Hydrodiuril) 25 mg DAILY PO Last administered on 03/21/17 08:07; Start 03/20/17 at 09:00 Levetiracetam (Keppra) 500 mg BID PO Last administered on 03/21/17 08:07; Start 03/19/17 at 21:00 Levothyroxine Sodium (Synthroid) 75 mcg DAILYAC PO Last administered on 06:20; Start 03/20/17 at 07:30 Metformin HCl (Glucophage) 500 mg BIDWMEALS PO Last administered on 03/20/17 17 :06; Start 03/20/17 at 08:00 Simvastatin (Zocor) 40 mg HS PO Last administered on 03/20/17 20:39; Start 03/19 at 21:00 Zolpidem Tartrate (Ambien) 5 mg HS PO ; Start 03/19/17 at 21:00; Stop 03/19/17 at 21:00; Status DC Zolpidem Tartrate (Ambien) 5 mg HS PRN PO INSOMNIA; Start 03/19/17 at 21:00 Apixaban (Eliquis) 5 mg BID PO Last administered on 03/20/17 20:39; Start at 09:00; Stop 03/21/17 at 10:38; Status DC Acetaminophen (Tylenol) 650 mg PRN Q6HRS PRN PO pain Last administered on 22:42; Start 03/20/17 at 22:45 Potassium Chloride (Klor-Con) 20 meq 1X ONCE PO Last administered on 03/21/17 11:59; Start 03/21/17 at 12:00; Stop 03/21/17 at 12:01; Status DC Potassium Chloride (Klor-Con) 20 meq 1X ONCE PO ; Start 03/21/17 at 17:00; Stop 03/21/17 at 17:01 Sodium Chloride 1,000 ml @ 60 mls/hr [id number] IV ; Start 03/22/17 at 07:00 Active Scripts Active Bactrim Ds Tablet (Sulfamethoxazole/Trimethoprim) 1 Each Tablet 1 Tab PO BID Keppra (Levetiracetam) 500 Mg Tablet 500 Mg PO BID Reported Eliquis (Apixaban) 5 Mg Tablet 5 Mg PO BID next dose tonight, 07/12 at 9 PM Metoprolol Succinate ( Xl ) (Metoprolol Succinate) 25 Mg Tab.er.24h 1 Tab PO DAILY Next dose tomorrow 07/13/16 9 AM Simvastatin 40 Mg Tablet 40 Mg PO HS next dose tonight, 07/12 at 9 PM Levothyroxine Sodium 75 Mcg Tablet 75 Mcg PO DAILYAC next dose tomorrow morning 07/13/16 one hour before breakfast Metformin Hcl 500 Mg Tablet 1 Tab PO BID next dose tonight, 07/12 at 9 PM Hydrochlorothiazide Capsule (Hydrochlorothiazide) 12.5 Mg Capsule 25 Mg PO DAILY next dose tomorrow 07/13/16 at 9 AM Zolpidem Tartrate 5 Mg Tablet 5 Mg PO Next dose tonight 07/12/16 at bedtime. Vitals/I & O Vital Sign - Last 24 Hours 03/20/17 03/20/17 03/20/17 03/20/17 15:00 19:00 19:10 22:30 Temp 97.9 98.4 97.8 97.9 98.4 97.8 Pulse 67 77 110 Resp 18 18 18 B/P (MAP) 115/76 (89) 165/65 (98) 174/79 (110) Pulse Ox 95 94 95 O2 Delivery Room Air Room Air Room Air Room Air 03/21/17 03/21/17 03/21/17 03/21/17 03:11 07:00 07:53 08:06 Temp 98.2 98.4 98.2 98.4 Pulse 81 114 78 Resp 18 20 B/P (MAP) 121/67 (85) 111/59 (76) 111/59 Pulse Ox 93 93 O2 Delivery Room Air Room Air Room Air 03/21/17 11:00 Temp 98.6 98.6 Pulse 84 Resp 20 B/P (MAP) 151/64 (93) Pulse Ox 94 O2 Delivery Room Air Intake and Output 03/20/17 03/20/17 03/21/17 15:00 23:00 07:00 Intake Total 1100 ml 260 ml Output Total 250 ml 300 ml Balance 850 ml -40 ml JULIA PALM MD March 21, 2017 13:16
[2017-03-21] MEDS ORDERED: ASPIRIN ENTERIC COATED 325 MG TABLET.DR. PO SCH (13:30)
--- NOTE | 2017-03-21 13:34 | PDOC ---
PROGRESS NOTES Subjective Subjective Patient feels ok. Cath planned for tomorrow. Objective Objective Vital Signs Date Time Temp Pulse Resp B/P (MAP) Pulse Ox O2 Delivery O2 Flow Rate FiO2 03/21/17 11:00 98.6 84 20 151/64 (93) 94 Room Air 98.6 Intake and Output 03/21/17 07:00 Intake Total 1360 ml Output Total 550 ml Balance 810 ml Intake Oral 1360 ml Output Urine Total 550 ml # Voids 9 Physical Exam Abdomen: Normal bowel sounds Heart: Regular rate Extremities: No clubbing General: Alert Lungs: Clear to auscultation Assessment Assessment Problems Medical Problems: (1) Chest pain Status: Acute 1. Acute coronary syndrome. 2. Recurrent chronic atrial fibrillation. 3. Type 2 diabetes. 4. Hypothyroidism. Plan Plan of Care Continue cardiac work up K+ replaced Comment Review of Relevant I have reviewed the following items ariadna (where applicable) has been applied. Labs Laboratory Tests Test 03/19/17 18:00 03/19/17 21:50 03/20/17 00:35 03/20/17 02:30 Troponin I Quantitative 0.023 ng/mL (0.000-0.055) 0.030 ng/mL (0.000-0.055) Nasal Screen MRSA (PCR) Negative (Negative) Triglycerides Level 75 mg/dL (0-150) Cholesterol Level 131 mg/dL (0-200) LDL Cholesterol, Calculated 63 mg/dL (0-100) VLDL Cholesterol, Calculated 15 mg/dL (0-40) Non-HDL Cholesterol Calculated 78 mg/dL (0-129) HDL Cholesterol 53 mg/dL (40-60) Cholesterol/HDL Ratio 2.5 Test 03/20/17 20:39 03/21/17 05:00 Glucose (Fingerstick) 119 mg/dL (70-99) White Blood Count 6.9 x10^3/uL (4.0-11.0) Red Blood Count 4.08 x10^6/uL (3.50-5.40) Hemoglobin 12.3 g/dL (12.0-15.5) Hematocrit 37.6 % (36.0-47.0) Mean Corpuscular Volume 92 fL (79-100) Mean Corpuscular Hemoglobin 30 pg (25-35) Mean Corpuscular Hemoglobin Concent 33 g/dL (31-37) Red Cell Distribution Width 15.3 % (11.5-14.5) Platelet Count 292 x10^3/uL (140-400) Neutrophils (%) (Auto) 66 % (31-73) Lymphocytes (%) (Auto) 21 % (24-48) Monocytes (%) (Auto) 10 % (0-9) Eosinophils (%) (Auto) 3 % (0-3) Basophils (%) (Auto) 1 % (0-3) Neutrophils # (Auto) 4.5 x10^3uL (1.8-7.7) Lymphocytes # (Auto) 1.4 x10^3/uL (1.0-4.8) Monocytes # (Auto) 0.7 x10^3/uL (0.0-1.1) Eosinophils # (Auto) 0.2 x10^3/uL (0.0-0.7) Basophils # (Auto) 0.1 x10^3/uL (0.0-0.2) Sodium Level 139 mmol/L (136-145) Potassium Level 3.2 mmol/L (3.5-5.1) Chloride Level 101 mmol/L (98-107) Carbon Dioxide Level 32 mmol/L (21-32) Anion Gap 6 (6-14) Blood Urea Nitrogen 20 mg/dL (7-20) Creatinine 1.0 mg/dL (0.6-1.0) Estimated GFR (Cockcroft-Gault) 53.8 Glucose Level 107 mg/dL (70-99) Calcium Level 9.3 mg/dL (8.5-10.1) Laboratory Tests Test 03/20/17 20:39 03/21/17 05:00 Glucose (Fingerstick) 119 mg/dL (70-99) White Blood Count 6.9 x10^3/uL (4.0-11.0) Red Blood Count 4.08 x10^6/uL (3.50-5.40) Hemoglobin 12.3 g/dL (12.0-15.5) Hematocrit 37.6 % (36.0-47.0) Mean Corpuscular Volume 92 fL (79-100) Mean Corpuscular Hemoglobin 30 pg (25-35) Mean Corpuscular Hemoglobin Concent 33 g/dL (31-37) Red Cell Distribution Width 15.3 % (11.5-14.5) Platelet Count 292 x10^3/uL (140-400) Neutrophils (%) (Auto) 66 % (31-73) Lymphocytes (%) (Auto) 21 % (24-48) Monocytes (%) (Auto) 10 % (0-9) Eosinophils (%) (Auto) 3 % (0-3) Basophils (%) (Auto) 1 % (0-3) Neutrophils # (Auto) 4.5 x10^3uL (1.8-7.7) Lymphocytes # (Auto) 1.4 x10^3/uL (1.0-4.8) Monocytes # (Auto) 0.7 x10^3/uL (0.0-1.1) Eosinophils # (Auto) 0.2 x10^3/uL (0.0-0.7) Basophils # (Auto) 0.1 x10^3/uL (0.0-0.2) Sodium Level 139 mmol/L (136-145) Potassium Level 3.2 mmol/L (3.5-5.1) Chloride Level 101 mmol/L (98-107) Carbon Dioxide Level 32 mmol/L (21-32) Anion Gap 6 (6-14) Blood Urea Nitrogen 20 mg/dL (7-20) Creatinine 1.0 mg/dL (0.6-1.0) Estimated GFR (Cockcroft-Gault) 53.8 Glucose Level 107 mg/dL (70-99) Calcium Level 9.3 mg/dL (8.5-10.1) Medications Current Medications Ondansetron HCl (Zofran) 4 mg PRN Q8HRS PRN IV NAUSEA/VOMITING; Start 03/19/17 at 12:30; Stop 03/20/17 at 12:29; Status DC Sodium Chloride 1,000 ml @ 100 mls/hr Q10H IV Last administered on 03/19/17 12 :21; Start 03/19/17 at 12:21; Stop 03/19/17 at 17:44; Status DC Acetaminophen (Tylenol) 650 mg PRN Q4HRS PRN PO FEVER Last administered on 01:13; Start 03/19/17 at 12:30; Stop 03/20/17 at 12:29; Status DC Metoprolol Succinate (Toprol Xl) 25 mg DAILY PO Last administered on 03/21/17 08:06; Start 03/20/17 at 09:00 Furosemide (Lasix) 20 mg 1X ONCE IVP Last administered on 03/19/17 19:45; Start 03/19/17 at 18:45; Stop 03/19/17 at 18:46; Status DC Hydrochlorothiazide (Hydrodiuril) 25 mg DAILY PO Last administered on 03/21/17 08:07; Start 03/20/17 at 09:00 Levetiracetam (Keppra) 500 mg BID PO Last administered on 03/21/17 08:07; Start 03/19/17 at 21:00 Levothyroxine Sodium (Synthroid) 75 mcg DAILYAC PO Last administered on 06:20; Start 03/20/17 at 07:30 Metformin HCl (Glucophage) 500 mg BIDWMEALS PO Last administered on 03/20/17 17 :06; Start 03/20/17 at 08:00 Simvastatin (Zocor) 40 mg HS PO Last administered on 03/20/17 20:39; Start 03/19 at 21:00 Zolpidem Tartrate (Ambien) 5 mg HS PO ; Start 03/19/17 at 21:00; Stop 03/19/17 at 21:00; Status DC Zolpidem Tartrate (Ambien) 5 mg HS PRN PO INSOMNIA; Start 03/19/17 at 21:00 Apixaban (Eliquis) 5 mg BID PO Last administered on 03/20/17 20:39; Start at 09:00; Stop 03/21/17 at 10:38; Status DC Acetaminophen (Tylenol) 650 mg PRN Q6HRS PRN PO pain Last administered on 22:42; Start 03/20/17 at 22:45 Potassium Chloride (Klor-Con) 20 meq 1X ONCE PO Last administered on 03/21/17 11:59; Start 03/21/17 at 12:00; Stop 03/21/17 at 12:01; Status DC Potassium Chloride (Klor-Con) 20 meq 1X ONCE PO ; Start 03/21/17 at 17:00; Stop 03/21/17 at 17:01 Sodium Chloride 1,000 ml @ 60 mls/hr [id number] IV ; Start 03/22/17 at 07:00 Aspirin (Ecotrin) 81 mg DAILYWBKFT PO ; Start 03/21/17 at 13:30 Active Scripts Active Bactrim Ds Tablet (Sulfamethoxazole/Trimethoprim) 1 Each Tablet 1 Tab PO BID Keppra (Levetiracetam) 500 Mg Tablet 500 Mg PO BID Reported Eliquis (Apixaban) 5 Mg Tablet 5 Mg PO BID next dose tonight, 07/12 at 9 PM Metoprolol Succinate ( Xl ) (Metoprolol Succinate) 25 Mg Tab.er.24h 1 Tab PO DAILY Next dose tomorrow 07/13/16 9 AM Simvastatin 40 Mg Tablet 40 Mg PO HS next dose tonight, 07/12 at 9 PM Levothyroxine Sodium 75 Mcg Tablet 75 Mcg PO DAILYAC next dose tomorrow morning 07/13/16 one hour before breakfast Metformin Hcl 500 Mg Tablet 1 Tab PO BID next dose tonight, 07/12 at 9 PM Hydrochlorothiazide Capsule (Hydrochlorothiazide) 12.5 Mg Capsule 25 Mg PO DAILY next dose tomorrow 07/13/16 at 9 AM Zolpidem Tartrate 5 Mg Tablet 5 Mg PO Next dose tonight 07/12/16 at bedtime. Vitals/I & O Vital Sign - Last 24 Hours 03/20/17 03/20/17 03/20/17 03/20/17 15:00 19:00 19:10 22:30 Temp 97.9 98.4 97.8 97.9 98.4 97.8 Pulse 67 77 110 Resp 18 18 18 B/P (MAP) 115/76 (89) 165/65 (98) 174/79 (110) Pulse Ox 95 94 95 O2 Delivery Room Air Room Air Room Air Room Air 03/21/17 03/21/17 03/21/17 03/21/17 03:11 07:00 07:53 08:06 Temp 98.2 98.4 98.2 98.4 Pulse 81 114 78 Resp 18 20 B/P (MAP) 121/67 (85) 111/59 (76) 111/59 Pulse Ox 93 93 O2 Delivery Room Air Room Air Room Air 03/21/17 11:00 Temp 98.6 98.6 Pulse 84 Resp 20 B/P (MAP) 151/64 (93) Pulse Ox 94 O2 Delivery Room Air Intake and Output 03/20/17 03/20/17 03/21/17 15:00 23:00 07:00 Intake Total 1100 ml 260 ml Output Total 250 ml 300 ml Balance 850 ml -40 ml DOREEN DICKENS MD March 21, 2017 13:34
[2017-03-21 15:00] VITALS: BP 131/60
[2017-03-21 19:00] VITALS: BP 115/59
[2017-03-21] MEDS: SIMVASTATIN 40 MG TABLET. PO SCH (20:36)
[2017-03-21 22:56] VITALS: BP 115/80
[2017-03-22] VITALS (12 sets, daily range): BP systolic 106–151; BP diastolic 55–74
[2017-03-22 04:09] LABS: INR 1.2 (0.8-1.1); PROTHROMBIN TIME PATIENT 14.1 SEC (11.7-14.0)
[2017-03-22 04:24] LABS: CALCIUM 9.6 mg/dL (8.5-10.1); CREATININE 0.9 mg/dL (0.6-1.0); GFR 60.7; MAGNESIUM 2.2 mg/dL (1.8-2.4); POTASSIUM 3.4 mmol/L (3.5-5.1)
--- NOTE | 2017-03-22 06:25 | EKG ---
[facility] [address] [place] [address] Test Date: 2017-03-19 Test Time: 12:01:17 Pat Name: ALVIN CHAUHAN Department: Room: 202 1 Gender: F [employer]: : 1940 Requested By: KAMRAN MCALLISTER Order Number: [id number] Reading MD: Montana Resendez Measurements Intervals [place] Rate: 83 P: MO: QRS: -2 QRSD: 126 T: 106 QT: 404 QTc: 475 Interpretive Statements ATRIAL FIBRILLATION WITH CONTROLLED VENTRICULAR RESPONSE NON-SPECIFIC ST/T CHANGES LBBB Electronically Signed On 03-29-2017 8:44:19 CDT by Montana Resendez
[2017-03-22] MEDS ORDERED: IV NORMAL SALINE 1000ML BAG 1,000 ML IV SCH (07:00)
[2017-03-22] MEDS ORDERED: LIDOCAINE 2% 20 ML VIAL. ONE (07:14)
[2017-03-22] MEDS ORDERED: IOHEXOL 350 MG/ML 100 ML VIAL. ONE (07:14)
[2017-03-22] MEDS: levETIRAcetam 500 MG TABLET PO SCH (07:42)
[2017-03-22] MEDS: LEVOTHYROXINE 75 MCG TABLET PO SCH (07:42)
[2017-03-22] MEDS: METOPROLOL SUCC 24HR ER 25 MG TAB.ER.24H. PO SCH (07:42)
[2017-03-22] MEDS: metFORMIN 500 MG TABLET PO SCH (07:45)
[2017-03-22] MEDS ORDERED: ASPIRIN ENTERIC COATED 81 MG TABLET.DR. PO SCH (08:00)
--- NOTE | 2017-03-22 08:24 | PDOC ---
PROGRESS NOTES Subjective Subjective Patient without complaint. No chest pain since admission. Objective Objective Vital Signs Date Time Temp Pulse Resp B/P (MAP) Pulse Ox O2 Delivery O2 Flow Rate FiO2 03/22/17 07:53 98.4 75 18 151/64 (93) 95 Room Air 98.4 Intake and Output 03/22/17 06:59 Output Total 1050 ml Balance -1050 ml Output Urine Total 1050 ml Physical Exam Abdomen: Normal bowel sounds, Soft, No tenderness Heart: Other (irregularly irregular) Extremities: No edema General: Alert, Oriented X3, No acute distress Lungs: Clear to auscultation Assessment Assessment Problems Medical Problems: (1) Chest pain Status: Acute Plan Plan of Care 1. Chest pain with hypertrophic obstructive cardiomyopathy - has been stable since admission. Troponin not significantly elevated. Cardiac catheterization today, further tx as per Cardiology. 2. atrial fib - chronic, rate controlled, continue home meds. Eliquis on hold for cath, resume afterwards. 3. HTN - well controlled, continue home meds. 4. DM2 - well controlled with Metformin. 5. hyperlipidemia - lipids good with present statin. Comment Review of Relevant I have reviewed the following items ariadna (where applicable) has been applied. Labs Laboratory Tests Test 03/20/17 20:39 03/21/17 05:00 03/21/17 20:36 03/22/17 02:58 Glucose (Fingerstick) 119 mg/dL (70-99) 103 mg/dL (70-99) White Blood Count 6.9 x10^3/uL (4.0-11.0) Red Blood Count 4.08 x10^6/uL (3.50-5.40) Hemoglobin 12.3 g/dL (12.0-15.5) Hematocrit 37.6 % (36.0-47.0) Mean Corpuscular Volume 92 fL (79-100) Mean Corpuscular Hemoglobin 30 pg (25-35) Mean Corpuscular Hemoglobin Concent 33 g/dL (31-37) Red Cell Distribution Width 15.3 % (11.5-14.5) Platelet Count 292 x10^3/uL (140-400) Neutrophils (%) (Auto) 66 % (31-73) Lymphocytes (%) (Auto) 21 % (24-48) Monocytes (%) (Auto) 10 % (0-9) Eosinophils (%) (Auto) 3 % (0-3) Basophils (%) (Auto) 1 % (0-3) Neutrophils # (Auto) 4.5 x10^3uL (1.8-7.7) Lymphocytes # (Auto) 1.4 x10^3/uL (1.0-4.8) Monocytes # (Auto) 0.7 x10^3/uL (0.0-1.1) Eosinophils # (Auto) 0.2 x10^3/uL (0.0-0.7) Basophils # (Auto) 0.1 x10^3/uL (0.0-0.2) Sodium Level 139 mmol/L (136-145) 140 mmol/L (136-145) Potassium Level 3.2 mmol/L (3.5-5.1) 3.4 mmol/L (3.5-5.1) Chloride Level 101 mmol/L (98-107) 102 mmol/L (98-107) Carbon Dioxide Level 32 mmol/L (21-32) 31 mmol/L (21-32) Anion Gap 6 (6-14) 7 (6-14) Blood Urea Nitrogen 20 mg/dL (7-20) 22 mg/dL (7-20) Creatinine 1.0 mg/dL (0.6-1.0) 0.9 mg/dL (0.6-1.0) Estimated GFR (Cockcroft-Gault) 53.8 60.7 Glucose Level 107 mg/dL (70-99) 104 mg/dL (70-99) Calcium Level 9.3 mg/dL (8.5-10.1) 9.6 mg/dL (8.5-10.1) Prothrombin Time 14.1 SEC (11.7-14.0) Prothromb Time International Ratio 1.2 (0.8-1.1) Magnesium Level 2.2 mg/dL (1.8-2.4) Test 03/22/17 07:23 Glucose (Fingerstick) 127 mg/dL (70-99) Laboratory Tests Test 03/21/17 20:36 03/22/17 02:58 03/22/17 07:23 Glucose (Fingerstick) 103 mg/dL (70-99) 127 mg/dL (70-99) Prothrombin Time 14.1 SEC (11.7-14.0) Prothromb Time International Ratio 1.2 (0.8-1.1) Sodium Level 140 mmol/L (136-145) Potassium Level 3.4 mmol/L (3.5-5.1) Chloride Level 102 mmol/L (98-107) Carbon Dioxide Level 31 mmol/L (21-32) Anion Gap 7 (6-14) Blood Urea Nitrogen 22 mg/dL (7-20) Creatinine 0.9 mg/dL (0.6-1.0) Estimated GFR (Cockcroft-Gault) 60.7 Glucose Level 104 mg/dL (70-99) Calcium Level 9.6 mg/dL (8.5-10.1) Magnesium Level 2.2 mg/dL (1.8-2.4) Medications Current Medications Ondansetron HCl (Zofran) 4 mg PRN Q8HRS PRN IV NAUSEA/VOMITING; Start 03/19/17 at 12:30; Stop 03/20/17 at 12:29; Status DC Sodium Chloride 1,000 ml @ 100 mls/hr Q10H IV Last administered on 03/19/17 12 :21; Start 03/19/17 at 12:21; Stop 03/19/17 at 17:44; Status DC Acetaminophen (Tylenol) 650 mg PRN Q4HRS PRN PO FEVER Last administered on 01:13; Start 03/19/17 at 12:30; Stop 03/20/17 at 12:29; Status DC Metoprolol Succinate (Toprol Xl) 25 mg DAILY PO Last administered on 03/22/17 07:42; Start 03/20/17 at 09:00 Furosemide (Lasix) 20 mg 1X ONCE IVP Last administered on 03/19/17 19:45; Start 03/19/17 at 18:45; Stop 03/19/17 at 18:46; Status DC Hydrochlorothiazide (Hydrodiuril) 25 mg DAILY PO Last administered on 03/21/17 08:07; Start 03/20/17 at 09:00 Levetiracetam (Keppra) 500 mg BID PO Last administered on 03/22/17 07:42; Start 03/19/17 at 21:00 Levothyroxine Sodium (Synthroid) 75 mcg DAILYAC PO Last administered on 07:42; Start 03/20/17 at 07:30 Metformin HCl (Glucophage) 500 mg BIDWMEALS PO Last administered on 03/20/17 17 :06; Start 03/20/17 at 08:00 Simvastatin (Zocor) 40 mg HS PO Last administered on 03/21/17 20:36; Start 03/19 at 21:00 Zolpidem Tartrate (Ambien) 5 mg HS PO ; Start 03/19/17 at 21:00; Stop 03/19/17 at 21:00; Status DC Zolpidem Tartrate (Ambien) 5 mg HS PRN PO INSOMNIA; Start 03/19/17 at 21:00 Apixaban (Eliquis) 5 mg BID PO Last administered on 03/20/17 20:39; Start at 09:00; Stop 03/21/17 at 10:38; Status DC Acetaminophen (Tylenol) 650 mg PRN Q6HRS PRN PO pain Last administered on 22:42; Start 03/20/17 at 22:45 Potassium Chloride (Klor-Con) 20 meq 1X ONCE PO Last administered on 03/21/17 11:59; Start 03/21/17 at 12:00; Stop 03/21/17 at 12:01; Status DC Potassium Chloride (Klor-Con) 20 meq 1X ONCE PO Last administered on 03/21/17 16:47; Start 03/21/17 at 17:00; Stop 03/21/17 at 17:01; Status DC Sodium Chloride 1,000 ml @ 60 mls/hr [id number] IV Last administered on 03/22/17 06:32; Start 03/22/17 at 07:00 Aspirin (Ecotrin) 81 mg DAILYWBKFT PO ; Start 03/21/17 at 13:30; Stop 03/21/17 at 13:34; Status DC Aspirin (Ecotrin) 81 mg DAILYWBKFT PO Last administered on 03/22/17 07:42; Start 03/22/17 at 08:00 Lidocaine HCl 20 ml STK-MED ONCE .ROUTE ; Start 03/22/17 at 07:14; Stop 03/22/17 at 07:15; Status DC Iohexol (Omnipaque 350 Mg/ml) 100 ml STK-MED ONCE .ROUTE ; Start 03/22/17 at 07: 14; Stop 03/22/17 at 07:15; Status DC Heparin Sodium/ Sodium Chloride 1,000 ml @ As Directed STK-MED ONCE .ROUTE ; Start 03/22/17 at 07:14; Stop 03/22/17 at 07:15; Status DC Active Scripts Active Keppra (Levetiracetam) 500 Mg Tablet 500 Mg PO BID Reported Eliquis (Apixaban) 5 Mg Tablet 5 Mg PO BID next dose tonight, 07/12 at 9 PM Metoprolol Succinate ( Xl ) (Metoprolol Succinate) 25 Mg Tab.er.24h 1 Tab PO DAILY Next dose tomorrow 07/13/16 9 AM Simvastatin 40 Mg Tablet 40 Mg PO HS next dose tonight, 07/12 at 9 PM Levothyroxine Sodium 75 Mcg Tablet 75 Mcg PO DAILYAC next dose tomorrow morning 07/13/16 one hour before breakfast Metformin Hcl 500 Mg Tablet 1 Tab PO BID next dose tonight, 07/12 at 9 PM Hydrochlorothiazide Capsule (Hydrochlorothiazide) 12.5 Mg Capsule 25 Mg PO DAILY next dose tomorrow 07/13/16 at 9 AM Zolpidem Tartrate 5 Mg Tablet 5 Mg PO Next dose tonight 07/12/16 at bedtime. Vitals/I & O Vital Sign - Last 24 Hours 03/21/17 03/21/17 03/21/17 03/21/17 11:00 15:00 19:00 19:02 Temp 98.6 98.8 98.8 98.6 98.8 98.8 Pulse 84 99 88 Resp 18 16 B/P (MAP) 151/64 (93) 131/60 (83) 115/59 (77) Pulse Ox 94 95 97 O2 Delivery Room Air Room Air Room Air Room Air 03/21/17 03/22/17 03/22/17 03/22/17 22:56 03:10 07:42 07:53 Temp 98.7 97.7 98.4 98.7 97.7 98.4 Pulse 78 89 89 75 Resp 16 18 B/P (MAP) 115/80 (92) 111/69 (83) 111/69 151/64 (93) Pulse Ox 96 96 95 O2 Delivery Room Air Room Air Room Air Intake and Output 03/21/17 03/21/17 03/22/17 14:59 22:59 06:59 Output Total 550 ml 500 ml Balance -550 ml -500 ml KAMRAN MCALLISTER MD March 22, 2017 08:24
[2017-03-22] MEDS ORDERED: fentaNYL PF VIAL 100 MCG/2 ML VIAL ONE (08:25)
[2017-03-22] MEDS ORDERED: MIDAZOLAM HCL/PF 2 MG/2 ML VIAL. ONE (08:25)
[2017-03-22] MEDS ORDERED: HEPARIN for IV BOLUS 10,000 UNIT/10 ML VIAL. ONE (08:25)
[2017-03-22] MEDS ORDERED: NITROGLYCERIN 200 MCG/2 ML SYRINGE FOR CATH/VASC LAB. ONE (08:25)
[2017-03-22] MEDS ORDERED: VERAPAMIL 5 MG/2 ML VIAL. ONE (08:25)
--- NOTE | 2017-03-22 08:34 | PDOC ---
MODERATE SEDATION ASSESSMENT RISKS/ALTERNATIVES Risks/Alternatives Risks and alternatives of this type of sedation and procedure discussed with: RISK/ALTERNATIVES: Patient H & P ON CHART H & P H & P on chart and reviewed for co-morbid conditions and appropriate labs. H&P ON CHART: Yes STATUS PREG STATUS ASSESSED: N/A MEDS/ALLERGIES REVIEWED Meds/Allergies Reviewed Medications and Allergies including time and route of recently administered narcotics and sedatives. MEDS/ALLERGIES REVIEWED: Yes ASA RATING ASA RATING: II AIRWAY ASSESSMENT Airway Assessment Airway patency, oral function limitations, presence of caps, crowns, dentures, partials, and ability to extend neck assessed. AIRWAY ASSESSMENT: Yes MALLAMPATI SCORE MALLAMPATI SCORE: II PRE-SEDATION ASSESSMENT PRE-SEDATION ASSESSMENT: Yes GARCIA SR MD March 22, 2017 08:34
[2017-03-22] MEDS ORDERED: HEPARIN for IV BOLUS 10,000 UNIT/10 ML VIAL. IV ONE (08:45)
[2017-03-22] MEDS ORDERED: MIDAZOLAM HCL/PF 2 MG/2 ML VIAL. IV ONE (08:45)
[2017-03-22] MEDS ORDERED: fentaNYL PF VIAL 100 MCG/2 ML VIAL IV ONE (08:45)
[2017-03-22] MEDS ORDERED: VERAPAMIL 5 MG/2 ML VIAL. IV ONE (08:45)
[2017-03-22] MEDS ORDERED: NITROGLYCERIN 200 MCG/2 ML SYRINGE FOR CATH/VASC LAB. IART ONE (08:45)
[2017-03-22] MEDS ORDERED: IOHEXOL 300 MG/ML 100ML VIAL. IART ONE (09:00)
[2017-03-22] MEDS ORDERED: CONTRAST GIVEN MC PRN (09:00)
[2017-03-22] MEDS ORDERED: NITROGLYCERIN SUBLINGUAL 0.4 MG BOTTLE OF 25. SL PRN (09:15)
[2017-03-22] MEDS ORDERED: IV 1/2 NORMAL SALINE 1,000 ML IV SCH (09:15)
[2017-03-22] MEDS: hydroCHLOROthiazide 25 MG TABLET PO SCH (09:58)
--- NOTE | 2017-03-22 11:31 | CARD ---
APPROVED REPORT Procedure(s) performed: Left heart catheterization, selective coronary angiography and left ventricul ography via right transradial approach INDICATION The indication(s) include : unstable angina . PROCEDURE NARRATIVE After explaining the risks, benefits and alternative options, informed consent was obtained from bart ent. Patient was brought to the cardiac Manager Package and right wrist was prepped and draped in the usual fashion after confirming a positive modified Pedro's test. 6 [place] JL 3.5 and 6 [place] Claritics cathet ers were used to perform selective angiography of the left and right coronary arteries respectively. 6 [place] dual lumen pigtail catheter was used to perform LVEDP measurement, transaortic gradient and left ventriculography. Patient tolerated the procedure well. Hemostasis was achieved using TR band. T here were no immediate complications. FINDINGS 1. Hemodynamics: Left ventricle end diastolic pressure 24 mmHg. There is a dynamic left ventricular outflow tract obstruction with baseline gradient 85 mm Hg that increases to 172 mm Hg post PVC (Cameron kenbrough response) consistent with hypertrophic obstructive cardiomyopathy. 2. Left ventriculography: Normal left ventricle systolic function with ejection fraction estimated at 75-80%. No significant mitral regurgitation seen. 3. Coronary angiography: a. The left main coronary artery arose from the left sinus of Valsalva, gave rise to the left anteri or descending, ramus intermedius and left circumflex arteries and did not show any significant stenos is. b. The left anterior descending artery did not show any significant stenosis. c. The ramus intermedius artery showed myocardial bridging in the midsegment without any significant stenosis. d. The left circumflex artery did not show any significant stenosis. e. The right coronary artery was a dominant vessel arising from the right sinus of Valsalva that did not show any significant stenosis. Conclusion 1. No significant coronary artery disease 2. Hypertrophic obstructive cardiomyopathy with dynamic LVOT obstruction, baseline gradient 85 mm Hg that increases to 172 mm Hg post PVC (Brockenbrough response). 3. Normal left ventricle systolic function with ejection fraction estimated at 75-80%. Recommendations Medical Therapy
[2017-03-22] MEDS ORDERED: RIVA20TA2 PO (16:35)
[2017-03-22] MEDS ORDERED: LEVO25TA4 PO (16:36)
[2017-03-22] MEDS ORDERED: HYDR25TA9 PO (16:40)
--- NOTE | 2017-03-22 21:44 | DS ---
DATE OF DISCHARGE: 03/22/2017 CHIEF COMPLAINT: Chest pain. HISTORY OF PRESENT ILLNESS: The patient is a 76-year-old woman with a known history of obstructive cardiomyopathy, who presented to the Emergency Room with the above complaint. She reported a several-day history of worsening chest pain with exertion. Her symptoms had been mild, but on the day of admission, she noticed a significant increase in the amount of pain when she was walking for a longer distance than she normally does. The pain was located in the mid sternum and there was some shortness of breath accompanying it. She grew concerned and so presented to the Emergency Room. Initial evaluation there showed a negative troponin and an EKG with her known atrial fibrillation, and she was admitted for further treatment. HOSPITAL COURSE: The patient was admitted and seen in consultation by Cardiology. Her chest pain appeared to have resolved in the Emergency Room and did not reoccur during her hospital stay. Several troponins were not significantly elevated. Her Eliquis was held and on 03/22/2017, she underwent a cardiac catheterization by Dr. Verma. This showed no significant coronary artery disease. It did show the presence of her known hypertrophic obstructive cardiomyopathy with a significant gradient. Left ventricle systolic function was preserved with an ejection fraction at 75-80% and Cardiology recommended continuing medical treatment for her. The patient's other chronic conditions appeared stable. Her blood pressure is well controlled with her usual medication. Her diabetes is well controlled with metformin. Her thyroid has been good with her present level of replacement. Her cholesterol is very well controlled with her usual simvastatin, her total cholesterol was 131, triglycerides 75, and LDL of 63. She will be discharged to home later today after she has completed recovery from her cardiac catheterization. FINAL DIAGNOSES: 1. Obstructive hypertrophic cardiomyopathy. 2. Chronic atrial fibrillation. 3. Hypertension. 4. Diabetes mellitus type 2. 5. Hyperlipidemia. 6. Seizure disorder. DISCHARGE MEDICATIONS: Xarelto 20mg daily., hydrochlorothiazide 25 mg daily, Keppra 500 mg b.i.d., levothyroxine 25 mcg daily, metformin 500 mg b.i.d., the patient should hold it for 48 hours following her cardiac catheterization and then resume. Toprol-XL 25 mg daily, simvastatin 40 mg daily, zolpidem 5 mg as needed at bedtime. Follow up with Dr. Campos in 2 weeks. Follow up with Dr. Verma as advised. KAMRAN CAMPOS MD DR: Latisha JOB#: [id number] / [id number] MIKEY
[2017-03-24] MEDS ORDERED: metFORMIN 500 MG TABLET PO SCH (17:00)
== END 2017-03-22 18:00 | disposition home or self-care (01) | DRG 287 ==
LOC: ER 11:24 → 2 NORTH 12:57
PROVIDERS: ADMIT Family Medicine; ATTEND Family Medicine
PROC: 4A023N7 Measurement of Cardiac Sampling and Pressure, Left Heart, Percutaneous Approach (ICD-10-PCS; principal; 2017-03-22)
PROC: B2111ZZ Fluoroscopy of Multiple Coronary Arteries using Low Osmolar Contrast (ICD-10-PCS; 2017-03-22)
PROC: B2151ZZ Fluoroscopy of Left Heart using Low Osmolar Contrast (ICD-10-PCS; 2017-03-22)
DX: I42.1 Obstructive hypertrophic cardiomyopathy (principal); I48.2 Chronic atrial fibrillation; E03.9 Hypothyroidism, unspecified; I50.9 Heart failure, unspecified; I11.0 Hypertensive heart disease with heart failure; E78.5 Hyperlipidemia, unspecified; E11.9 Type 2 diabetes mellitus without complications; M19.90 Unspecified osteoarthritis, unspecified site; Z86.73 Personal history of transient ischemic attack (TIA), and cerebral infarction without residual deficits; E78.00 Pure hypercholesterolemia, unspecified; G40.909 Epilepsy, unspecified, not intractable, without status epilepticus; I87.2 Venous insufficiency (chronic) (peripheral); Z90.710 Acquired absence of both cervix and uterus; Z91.041 Radiographic dye allergy status; Z79.84 Long term (current) use of oral hypoglycemic drugs
CPT/HCPCS: 36415; 71010; 80048; 80061; 80076; 82947; 83735; 83880; 84484; 85027; 85610; 85730; 87641; 93005; 93458; 96360; 96361; C1769; C1892; J2250; J3010; J3490; J7030; Q9967; 99285-25

== ENCOUNTER 2017-06-01 09:00 | Day surgery (SDC) | payer MEDICARE ==
[~2017-06-01 09:00] MED LIST changes: +0.9 % SODIUM CHLORIDE 10 ML DISP.SYRIN. IV PRN; +AMIO200T2 PO; +ATOR10TA60 PO; +DILT180C2 PO; -HYDR-2666 PO; +HYDR-2758 PO; +HYDR25TA9 PO; +HYDROmorphone 2 MG/ML VIAL IV PRN; +IV RINGERS,LACTATED 1000ML 1,000 ML IV SCH; +LIDOCAINE 1% 1 ML SYRINGE. ID PRN; +MORPHINE SULFATE 2 MG/ML DISP.SYRIN. IV PRN; +ONDANSETRON PF 4 MG/2 ML VIAL. IV PRN; +PROCHLORPERAZINE 10 MG/2 ML VIAL. IV PRN; +RIVA20TA2 PO; +fentaNYL PF VIAL 100 MCG/2 ML VIAL IV PRN
--- NOTE | 2017-06-01 10:26 | EKG ---
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
[2017-06-01] MEDS ORDERED: PROPOFOL 20 ML IV ONE (10:45)
[2017-06-01 11:03] LABS: CALCIUM 8.9 mg/dL (8.5-10.1); GFR 53.8; MAGNESIUM 1.9 mg/dL (1.8-2.4); POTASSIUM 3.1 mmol/L (3.5-5.1)
--- NOTE | 2017-06-01 12:42 | PDOC4 ---
PROCEDURE Procedure PROCEDURE Cardioversion INDICATIONS Atrial fibrillation COMPLICATIONS None PROCEDURAL DETAILS An informed consent was obtained from patient. Patient was given intravenous propofol by anesthesiology team for deep sedation. Patient was then administered 200 J of synchronized biphasic DC shock therapy with successful conversion of patient's rhythm from atrial fibrillation to sinus rhythm. She was hemodynamically stable without any neurological deficits at the end of procedure. She tolerated the procedure well. CONCLUSIONS Successful cardioversion of atrial fibrillation to sinus rhythm. GARCIA SR MD Jun 01, 2017 12:42
[2017-06-01] MEDS ORDERED: POTASSIUM CHLORIDE 20 MEQ TABLET.ER. PO ONE (12:45)
--- NOTE | 2017-06-01 13:14 | EKG ---
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
[2017-06-01 13:38] VITALS: BP 186/70
== END 2017-06-01 13:43 | disposition home or self-care (01) ==
LOC: SURG 09:00
PROVIDERS: ATTEND Internal Medicine Cardiovascular Disease
DX: I48.91 Unspecified atrial fibrillation (principal); E78.00 Pure hypercholesterolemia, unspecified; I10 Essential (primary) hypertension; F17.200 Nicotine dependence, unspecified, uncomplicated; E11.9 Type 2 diabetes mellitus without complications; E03.9 Hypothyroidism, unspecified; Z98.51 Tubal ligation status; Z90.710 Acquired absence of both cervix and uterus; Z86.39 Personal history of other endocrine, nutritional and metabolic disease; Z87.440 Personal history of urinary (tract) infections
CPT/HCPCS: 36415; 80048; 83735; 92960; 93005; C1887; J2704

== ENCOUNTER → 2017-06-24 | Outpatient (CLI) | payer MEDICARE ==
[2017-06-01 13:38] VITALS: BP 186/70
[~2017-06-24] MED LIST changes: -0.9 % SODIUM CHLORIDE 10 ML DISP.SYRIN. IV PRN; -HYDROmorphone 2 MG/ML VIAL IV PRN; -IV RINGERS,LACTATED 1000ML 1,000 ML IV SCH; -LIDOCAINE 1% 1 ML SYRINGE. ID PRN; -MORPHINE SULFATE 2 MG/ML DISP.SYRIN. IV PRN; -ONDANSETRON PF 4 MG/2 ML VIAL. IV PRN; -PROCHLORPERAZINE 10 MG/2 ML VIAL. IV PRN; -fentaNYL PF VIAL 100 MCG/2 ML VIAL IV PRN
--- NOTE | 2017-06-24 14:29 | CARD ---
APPROVED REPORT EXAM: Two-dimensional and M-mode echocardiogram with Doppler and color Doppler. Other Information Quality : GoodHR: 90bpm Rhythm : Atrial Fibrillation INDICATION Atrial Fibrillation 2D DIMENSIONS RVDd3.3 (2.9-3.5cm)Left Atrium(2D)5.3 (1.6-4.0cm) IVSd1.6 (0.7-1.1cm)Aortic Root(2D)4.9 (2.0-3.7cm) LVDd4.1 (3.9-5.9cm)LVOT Diameter2.0 (1.8-2.4cm) PWd1.4 (0.7-1.1cm)LVDs2.6 (2.5-4.0cm) FS (%) 35.4 %SV48.3 ml LVEF(%)65.2 (>50%) Aortic Valve AoV Peak Rodrigo.230.6cm/sAoV VTI51.3cm AO Peak GR.21.3mmHgAO Mean GR.12mmHg Mitral Valve MV E Peak Gr.24mmHgMV E Mean Gr.5mmHg Pulmonary Valve PV Peak Ymmqxzhh257.6cm/s Tricuspid Valve TR P. Jtmptafn927tp/sTR Peak Gr.48mmHg Pulmonary Vein S1 Aapictoc83.0cm/s LEFT VENTRICLE The left ventricle is normal size. There is moderate asymmetric left ventricular hypertrophy. A LVOT gradient is present.The resting peak pressure gradient is 94 mmHg and mean of 42 mmHg. With Valsalva, the peak pressure gradient increases to 121 mmHg and mean of 68 mmHg. The left ventricular systolic function is normal. The Ejection Fraction is 65-70%. There is normal LV segmental wall motion. Tissue Doppler imaging reveals moderate left ventricular diastolic dysfunction. No left ventricle thrombus noted on this study. RIGHT VENTRICLE The right ventricle is normal size. There is normal right ventricular wall thickness. The right ventr icular systolic function is normal. ATRIA The left atrium is moderately dilated. The right atrium is moderately dilated. The interatrial septum is intact with no evidence for an atrial septal defect or patent foramen ovale as noted on 2-D or Do ppler imaging. AORTIC VALVE The aortic valve is mildly sclerotic. The aortic valve is trileaflet. Doppler and Color Flow revealed no significant aortic regurgitation. There is no significant aortic valvular stenosis. MITRAL VALVE Mitral annular calcification is moderate. The mitral valve leaflets are moderately thickened. There i s systolic anterior motion of the mitral valve consistent with LVOT obstruction. There is no evidence of mitral valve prolapse. There is no mitral valve stenosis. Doppler and Color Flow revealed moderat e mitral regurgitation (posteriorly directed jet). TRICUSPID VALVE Doppler and Color Flow revealed moderate tricuspid regurgitation. The pulmonary artery systolic press ure is estimated at 51 mmHg. There is moderate pulmonary hypertension. PULMONIC VALVE The pulmonary valve is not well visualized but appears to opens well. Doppler and Color Flow revealed moderate pulmonic valvular regurgitation. There is no pulmonic valvular stenosis by spectral Doppler . GREAT VESSELS The aortic root is normal in size. The ascending aorta is normal in size. The pulmonary artery is nor mal. The IVC is normal in size and collapses >50% with inspiration. PERICARDIAL EFFUSION There is no evidence of significant pericardial effusion. Critical Notification Critical Value: No <Conclusion> The left ventricular systolic function is normal. The Ejection Fraction is 65-70%. There is normal LV segmental wall motion. Tissue Doppler imaging reveals moderate left ventricular diastolic dysfunction. There is moderate asymmetric left ventricular hypertrophy. There is systolic anterior motion of the mitral valve consistent with LVOT obstruction. LVOT peak pressure gradient is 94 mmHg and mean of 42 mmHg; with Valsalva maneuver the peak pressure gradient increases to 121 mmHg and mean of 68 mmHg. Moderate mitral regurgitation (posteriorly directed jet). Moderate tricuspid regurgitation. The pulmonary artery systolic pressure is estimated at 51 mmHg. There is no evidence of significant pericardial effusion.
== END | disposition home or self-care (01) ==
LOC: ECHO 12:25
PROVIDERS: ATTEND Internal Medicine Cardiovascular Disease
DX: I08.1 Rheumatic disorders of both mitral and tricuspid valves (principal); I48.91 Unspecified atrial fibrillation; I27.2 Other secondary pulmonary hypertension
CPT/HCPCS: 93306

== ENCOUNTER → 2018-03-08 | Outpatient (CLI) | payer MEDICARE | END | disposition home or self-care (01) | LOC: ECHO 08:54 | DX: I42.1 Obstructive hypertrophic cardiomyopathy (principal); I27.20 Pulmonary hypertension, unspecified; I08.1 Rheumatic disorders of both mitral and tricuspid valves | CPT/HCPCS: 93306 ==

== ENCOUNTER 2018-07-13 21:58 | Emergency (ER) | payer MEDICARE ==
[~2018-07-13] VITALS: Ht 157.5 cm; Wt 76.2 kg
[~2018-07-13 21:58] MED LIST changes: +ACET325T9 PO; -AMIO200T2 PO; +AMIO200T4 PO; +DILT120C80 PO; +DIPH25CA58 PO; -METF500T4 PO; +METF500T5 PO; +METO-239 PO; -METO25TA9 PO
--- NOTE | 2018-07-13 23:36 | RAD ---
Indication: Hip pain for 10 days TECHNIQUE: AP pelvis and 2 views of the left hip joint COMPARISON: None FINDINGS: No acute fracture or dislocation. The hip joints are symmetric bilaterally with mild joint space narrowing. SI joints within normal limits. IMPRESSION: Mild bilateral hip joint osteoarthritis. No acute fractures. Electronically signed by: Tc Hay DO (07/13/2018 11:32 PM) [facility]
--- NOTE | 2018-07-14 00:38 | PHYS DOC ---
Past Medical History Past Medical History: A-Fib, CHF, CVA, Diabetes-Type II, High Cholesterol, Hypertension, Hypothyroid Additional Past Medical Histor: bladder infection heart cath cardiomyopathy possible CHF Past Surgical History: Other Additional Past Surgical Histo: heart cath Alcohol Use: None Drug Use: None Adult General Chief Complaint Chief Complaint: HIP PAIN HPI HPI Patient is a 77 year old [f__sex] who presents with [] Review of Systems Review of Systems Constitutional: Denies fever or chills [] Eyes: Denies change in visual acuity, redness, or eye pain [] HENT: Denies nasal congestion or sore throat [] Respiratory: Denies cough or shortness of breath [] Cardiovascular: No additional information not addressed in HPI [] GI: Denies abdominal pain, nausea, vomiting, bloody stools or diarrhea [] : Denies dysuria or hematuria [] Musculoskeletal: Denies back pain or joint pain [] Integument: Denies rash or skin lesions [] Neurologic: Denies headache, focal weakness or sensory changes [] Endocrine: Denies polyuria or polydipsia [] All other systems were reviewed and found to be within normal limits, except as documented in this note. Allergies Allergies Allergies Coded Allergies Type Severity Reaction Last Updated Verified No Known Medication Allergies Allergy Unknown 05/27/17 Yes Physical Exam Physical Exam Constitutional: Well developed, well nourished, no acute distress, non-toxic appearance. [] HENT: Normocephalic, atraumatic, bilateral external ears normal, oropharynx moist, no oral exudates, nose normal. [] Eyes: PERRLA, EOMI, conjunctiva normal, no discharge. [] Neck: Normal range of motion, no tenderness, supple, no stridor. [] Cardiovascular:Heart rate regular rhythm, no murmur [] Lungs & Thorax: Bilateral breath sounds clear to auscultation [] Abdomen: Bowel sounds normal, soft, no tenderness, no masses, no pulsatile masses. [] Skin: Warm, dry, no erythema, no rash. [] Back: No tenderness, no CVA tenderness. [] Extremities: No tenderness, no cyanosis, no clubbing, ROM intact, no edema. [] Neurologic: Alert and oriented X 3, normal motor function, normal sensory function, no focal deficits noted. [] Psychologic: Affect normal, judgement normal, mood normal. [] Current Patient Data Vital Signs Vital Signs Date Time Temp Pulse Resp B/P (MAP) Pulse Ox O2 Delivery O2 Flow Rate FiO2 07/13/18 22:00 98.4 81 18 148/88 (108) 90 Room Air 98.4 EKG EKG [] Radiology/Procedures Radiology/Procedures [] Course & Med Decision Making Course & Med Decision Making Pertinent Labs and Imaging studies reviewed. (See chart for details) [] Dragon Disclaimer Dragon Disclaimer This electronic medical record was generated, in whole or in part, using a voice recognition dictation system. Departure Departure Impression: Primary Impression: Strain of left hip Additional Impression: Left hip pain Disposition: HOME, SELF-CARE Condition: STABLE Referrals: KAMRAN MCALLISTER MD (PCP) Patient Instructions: Hip Pain, Muscle Strain, Amel-nm-Hbbk Additional Instructions: Continue taking Tylenol as needed for relief of pain. You may apply ice or heat to sore areas to help with discomfort. Activity as tolerated. Follow-up with your primary care doctor in the next 1-2 days. Return to the emergency room if your symptoms worsen. Problem Qualifiers Primary Impression: Strain of left hip Encounter type: initial encounter Qualified Codes: S76.012A - Strain of muscle, fascia and tendon of left hip, initial encounter LUIS BROWN APRN Jul 14, 2018 00:38
[2018-07-14 00:43] VITALS: BP 140/59
== END 2018-07-14 01:23 | disposition home or self-care (01) ==
LOC: ER 21:58
DX: S76.012A Strain of muscle, fascia and tendon of left hip, initial encounter (principal); I48.91 Unspecified atrial fibrillation; I11.0 Hypertensive heart disease with heart failure; I50.9 Heart failure, unspecified; E78.00 Pure hypercholesterolemia, unspecified; E11.9 Type 2 diabetes mellitus without complications; Z86.73 Personal history of transient ischemic attack (TIA), and cerebral infarction without residual deficits; X58.XXXA Exposure to other specified factors, initial encounter; Y93.89 Activity, other specified; Y92.89 Other specified places as the place of occurrence of the external cause; Y99.8 Other external cause status
CPT/HCPCS: 73502; 99284

== ENCOUNTER → 2019-02-22 | Outpatient (CLI) | payer MEDICARE ==
[~2019-02-22] MED LIST changes: -DILT120C80 PO; +DILT120C85 PO; +HYDR-2145 PO; -HYDR-2758 PO; +HYDR-2761 PO; -HYDR12.53 PO; +HYDR12.575 PO; -HYDR25TA9 PO; +METF500T16 PO; -METF500T5 PO; +SIMV5TAB14 PO; -SIMV5TAB5 PO
--- NOTE | 2019-02-22 15:37 | CARD ---
MR#: [id number] Date of Study: 02/22/2019 Ordering Physician: GARCIA VERMA, Referring Physician: GARCIA VERMA Tech: Sydnie Rutledge RDCS APPROVED REPORT EXAM: Two-dimensional and M-mode echocardiogram with Doppler and color Doppler. Other Information Quality : AverageHR: 93bpm Rhythm : Atrial FibrillationTechnically limited study due to heart rate. INDICATION Atrial Fibrillation 2D DIMENSIONS RVDd3.7 (2.9-3.5cm)Left Atrium(2D)4.8 (1.6-4.0cm) IVSd1.3 (0.7-1.1cm)Aortic Root(2D)2.6 (2.0-3.7cm) LVDd4.1 (3.9-5.9cm)LVOT Diameter1.8 (1.8-2.4cm) PWd1.1 (0.7-1.1cm)LVDs2.9 (2.5-4.0cm) FS (%) 29.7 %SV42.3 ml LVEF(%)57.3 (>50%) M-Mode DIMENSIONS Left Atrium(MM)4.51 (2.5-4.0cm)Aortic Root2.98 (2.2-3.7cm) Aortic Valve AoV Peak Rodrigo.318.2cm/sAoV VTI52.1cm AO Peak GR.40.5mmHgLVOT Peak Rodrigo.185.1cm/s AO Mean GR.21mmHgAVA (VMAX)1.42cm2 ARMANDO (VTI)1.39fa6IH P 1/2 Awzr100qu Mitral Valve MV E Ibnojrpv396.2cm/sMV E Peak Gr.126mmHg MV DECEL FXYN129hjBS A Gwpcvgzo03.0cm/s MV E Mean Gr.5mmHgE/A Ratio2.5 Pulmonary Valve PV Peak Xbqldiqz502.0cm/s Tricuspid Valve TR P. Ivwgjxlu290mi/sRAP [id number] TR Peak Gr.85jcGkNMFA17wuNl LEFT VENTRICLE The left ventricle is normal size. Proximal septal thickening is noted. The left ventricular systolic function is normal. The Ejection Fraction is 60%. There is normal LV segmental wall motion. Transmit ral Doppler flow pattern is Grade III-reversible restrictive diastolic dysfunction. RIGHT VENTRICLE The right ventricle is normal size. There is normal right ventricular wall thickness. The right ventr icular systolic function is normal. ATRIA The left atrium is moderately dilated. The right atrium is mildly dilated. The interatrial septum is intact with no evidence for an atrial septal defect or patent foramen ovale as noted on 2-D or Dopple r imaging. AORTIC VALVE The non coronary cusp is heavily calcified. The aortic valve is trileaflet. Doppler and Color Flow re vealed trace aortic regurgitation. Mild LVOT obstruction due to the systolic anterior motion of the m itral valve with a max gradient of 41 mmHg but visually the valve opens well. MITRAL VALVE Mitral annular calcification is moderate to severe. There is systolic anterior motion of the mitral v alve. There is no evidence of mitral valve prolapse. There is mild mitral valve stenosis with a mean pressure gradient of 5 mmHg. Doppler and Color-flow revealed mild mitral regurgitation. TRICUSPID VALVE The tricuspid valve is normal in structure and function. Doppler and Color Flow revealed mild tricusp id regurgitation. There is moderate pulmonary hypertension. The PA pressure was estimated at 60 mmHg. There is no tricuspid valve prolapse or vegetation. There is no tricuspid valve stenosis. PULMONIC VALVE The pulmonary valve is normal in structure and function. Doppler and Color Flow revealed moderate pul lizabeth valvular regurgitation. There is no pulmonic valvular stenosis. GREAT VESSELS The aortic root is normal in size. The ascending aorta is normal in size. The IVC is normal in size a nd collapses >50% with inspiration. PERICARDIAL EFFUSION There is no evidence of significant pericardial effusion. Critical Notification Critical Value: No <Conclusion> The left ventricular systolic function is normal. The Ejection Fraction is 60%. There is normal LV segmental wall motion. Transmitral Doppler flow pattern is Grade III-reversible restrictive diastolic dysfunction. The left atrium is moderately dilated. Mild LVOT obstruction due to the systolic anterior motion of the mitral valve with a max gradient of 41 mmHg and visually the aortic valve opens well. Mild mitral regurgitation. Mild tricuspid regurgitation. There is moderate pulmonary hypertension. The PA pressure was estimated at 60 mmHg. There is no evidence of significant pericardial effusion. Signed by : Garcia eVrma, Electronically Approved : 02/22/2019 15:36:19
== END | disposition home or self-care (01) ==
LOC: ECHO 13:48
PROVIDERS: ATTEND Internal Medicine Cardiovascular Disease
DX: I08.8 Other rheumatic multiple valve diseases (principal); I27.20 Pulmonary hypertension, unspecified; I48.91 Unspecified atrial fibrillation
CPT/HCPCS: 93306

== ENCOUNTER 2019-05-01 22:08 | Emergency (ER) | payer MEDICARE ==
[~2019-05-01] VITALS: Ht 170.2 cm; Wt 77.1 kg
[2019-05-01 22:52] VITALS: BP 152/86
--- NOTE | 2019-05-01 23:19 | PHYS DOC ---
Past Medical History Past Medical History: A-Fib, CHF, CVA, Diabetes-Type II, High Cholesterol, Hypertension, Hypothyroid Additional Past Medical Histor: bladder infection heart cath cardiomyopathy po ssible CHF (SANTOSH KWONG APRN) Past Surgical History: Other Additional Past Surgical Histo: heart cath (SANTOSH KWONG APRN) Alcohol Use: None Drug Use: None (SANTOSH KWONG APRN) Adult General Chief Complaint Chief Complaint: LOWER EXT PAIN HPI HPI Patient is a 78 year old [female] who presents with [left lower leg knots that came and went. Patient reports she has been working in her house quite a bit the past few days and weeks, cleaning it. States that she had been up and down on her knees and has had some pain in her knee on and off. Reports tonight she tho ught she saw a swollen spot on her left lower leg, a little while later it was gone and then it moved to her left upper leg, laterally. Denies any pain when she had that, denies any current pain, states she was just worried. States she had a, number will had a blood clot and she thought she might have a blood clot. Patient does state she has been taking Xarelto for several years for her atrial fibrillation, has not missed any doses. States no recent travel, no recent fevers, states she is active at home ambulatory. Denies any shortness of breath, denies any other complaints other than concern over some knots on her leg that are no longer there.] (SANTOSH KWONG APRN) Review of Systems Review of Systems Constitutional: Denies fever or chills [] Eyes: Denies change in visual acuity, redness, or eye pain [] HENT: Denies nasal congestion or sore throat [] Respiratory: Denies cough or shortness of breath [] Cardiovascular: No additional information not addressed in HPI [] GI: Denies abdominal pain, nausea, vomiting, bloody stools or diarrhea [] : Denies dysuria or hematuria [] Musculoskeletal: Denies back pain or joint pain [] Integument: Denies rash or skin lesions [] Neurologic: Denies headache, focal weakness or sensory changes [] Endocrine: Denies polyuria or polydipsia [] All other systems were reviewed and found to be within normal limits, except as documented in this note. (SANTOSH KWONG APRN) Allergies Allergies Allergies Coded Allergies Type Severity Reaction Last Updated Verified No Known Medication Allergies Allergy Unknown 05/27/17 Yes (DOREEN WAN DO) Physical Exam Physical Exam Constitutional: Well developed, well nourished, no acute distress, non-toxic appearance. [] HENT: Normocephalic, atraumatic, bilateral external ears normal, oropharynx moist, no oral exudates, nose normal. [] Eyes: PERRLA, EOMI, conjunctiva normal, no discharge. [] Neck: Normal range of motion, no tenderness, supple, no stridor. [] Cardiovascular:Heart rate regular rhythm, no murmur [] Lungs & Thorax: Bilateral breath sounds clear to auscultation [] Abdomen: Bowel sounds normal, soft, no tenderness, no masses, no pulsatile masses. [] Skin: Warm, dry, no erythema, no rash. [] Back: No tenderness, no CVA tenderness. [] Extremities: No tenderness, no cyanosis, no clubbing, ROM intact, no edema. Negative Ximena's sign. No cords, no masses, full ROM to knee and lower leg. [] Neurologic: Alert and oriented X 3, normal motor function, normal sensory function, no focal deficits noted. [] Psychologic: Affect normal, judgement normal, mood normal. [] (SANTOSH KWONG APRN) Current Patient Data Vital Signs Vital Signs Date Time Temp Pulse Resp B/P (MAP) Pulse Ox O2 Delivery O2 Flow Rate FiO2 05/01/19 22:52 97.6 96 22 152/86 (108) 96 Room Air 97.6 (DOREEN WAN DO) EKG EKG [] (SANTOSH KWONG APRN) Radiology/Procedures Radiology/Procedures [] (SANTOSH KWONG APRN) Course & Med Decision Making Course & Med Decision Making Pertinent Labs and Imaging studies reviewed. (See chart for details) [Discussed findings with patient, with no lesions or masses noted at this time. Discussed treatment for blood clots be to put patient on blood thinners and that she started taking blood thinners she is probably a lower risk for a blood clot. Patient with no history of blood clots. Wells score 0. Discussed patient working in house, possible she just has a muscle knot. With no findings at this time patient in agreement to follow up with Dr. Campos, rest, apply ice to her knee. Continue taking Tylenol or ibuprofen as needed. Patient agreeable with plan no further questions] (SANTOSH KWONG APRN) Dragon Disclaimer Dragon Disclaimer This electronic medical record was generated, in whole or in part, using a voice recognition dictation system. (SANTOSH KWONG APRN) Departure Departure Impression: Primary Impression: Left leg swelling Additional Impression: Knee pain, left Disposition: HOME, SELF-CARE Condition: GOOD Referrals: KAMRAN CAMPOS MD (PCP) Patient Instructions: Knee Pain, [id number] Additional Instructions: As we discussed, you can apply an ice pack to your knee for the discomfort. you can also take Tylenol or ibuprofen. Follow-up with Dr. Campos Keep taking your medications as prescribed. There did not appear to be any issues with your leg that we noticed today. Attending Signature Attending Signature I have reviewed the PA/PRODUCT SAFETY TESTER's note and plan of care. I was available for consultation as needed during the patient's visit in the emergency department. I agree with the clinical impression, plan, and disposition. (DOREEN WAN DO) Problem Qualifiers Additional Impression: Knee pain, left Chronicity: acute Qualified Codes: M25.562 - Pain in left knee SANTOSH KWONG APRN May 01, 2019 23:19 DOREEN WAN DO May 03, 2019 20:16
== END 2019-05-01 23:35 | disposition home or self-care (01) ==
LOC: ER 22:08
DX: M25.562 Pain in left knee (principal); R22.42 Localized swelling, mass and lump, left lower limb; I48.91 Unspecified atrial fibrillation; E78.00 Pure hypercholesterolemia, unspecified; Z86.73 Personal history of transient ischemic attack (TIA), and cerebral infarction without residual deficits; E03.9 Hypothyroidism, unspecified; I11.0 Hypertensive heart disease with heart failure; I50.9 Heart failure, unspecified; E11.9 Type 2 diabetes mellitus without complications
CPT/HCPCS: 99281

== ENCOUNTER 2019-11-02 19:03 | Emergency (ER) | payer MEDICARE ==
[~2019-11-02] VITALS: Ht 157.5 cm; Wt 74.8 kg
[~2019-11-02 19:03] MED LIST changes: -DILT120C85 PO; +DILT120C99 PO; +SIMV40TA18 PO; -SIMV40TA3 PO
[2019-11-02] MEDS ORDERED: IV NORMAL SALINE 1000ML BAG 1,000 ML IV ONE (20:30)
[2019-11-02 21:06] LABS: BASO # 0.1 x10^3/uL (0.0-0.2); BASO % 1 % (0-3); EOS # 0.1 x10^3/uL (0.0-0.7); EOS % 2 % (0-3); HEMATOCRIT 36.6 % (36.0-47.0); HEMOGLOBIN 12.4 g/dL (12.0-15.5); LYMPH # 1.5 x10^3/uL (1.0-4.8); LYMPH % 18 % (24-48); MEAN CORPUSCULAR HEMOGLOBIN 32 pg (25-35); MEAN CORPUSCULAR HGB CONC 34 g/dL (31-37); MEAN CORPUSCULAR VOLUME 95 fL (79-100); MONO # 0.8 x10^3/uL (0.0-1.1); MONO % 9 % (0-9); NEUT # 6.1 x10^3/uL (1.8-7.7); NEUT % 71 % (31-73); PLATELET COUNT 326 x10^3/uL (140-400); RED BLOOD COUNT 3.85 x10^6/uL (3.50-5.40); RED CELL DISTRIBUTION WIDTH 15.9 % (11.5-14.5); WHITE BLOOD COUNT 8.6 x10^3/uL (4.0-11.0)
[2019-11-02 21:16] LABS: PROTHROMBIN TIME PATIENT 23.2 SEC (11.7-14.0)
[2019-11-02 21:58] LABS: CALCIUM 9.2 mg/dL (8.5-10.1); GFR 53.3
[2019-11-02] MEDS ORDERED: IOHEXOL 300 MG/ML 100ML VIAL. IV ONE (22:30)
[2019-11-02] MEDS ORDERED: CONTRAST GIVEN. MC PRN (22:30)
[2019-11-02] MEDS ORDERED: POTASSIUM CHLORIDE 20 MEQ TABLET.ER. PO ONE (22:30)
--- NOTE | 2019-11-02 23:21 | RAD ---
CT HEAD AND CERVICAL SPINE WO, CT MAXILLOFACIAL WO CONTRAST Date: 11/02/2019 8:26 PM Clinical Indication: Pain after falling Comparison: CT head 07/09/2016. Technique: 5 mm axial tomographic images were obtained of the head without contrast. These were viewed on brain and bone windows. Axial helical images of the face were obtained without contrast. Axial and coronal reconstruction was performed. CT imaging of the cervical spine was performed without contrast. Coronal and sagittal reformatted images were performed. One or more of the following dose reduction techniques were utilized: Automated exposure control (AEC), Adjustment of mA and/or kV according to patient size, Use of iterative reconstruction technique such as ASiR, CT scan done according to ALARA and image gently/image wisely CT HEAD FINDINGS: Mild generalized cerebral and cerebellar volume loss. Mild nonspecific periventricular hypoattenuation, most commonly seen with chronic small vessel ischemic disease. Small area of left parietal encephalomalacia. No intra- or extra-axial mass or fluid collection. No acute hemorrhage. The ventricles are normal in size, shape, and morphology. The valle-white matter junction is normal. The basilar cisterns are patent. The mastoid air cells are clear. No aggressive osseous lesion or fracture. CT FACE FINDINGS: There is no acute facial bone fracture. The paranasal sinuses are clear. The orbits are normal. The globes are intact. The nasal septum is mostly midline. The ostiomeatal complexes are narrow but patent. CT CERVICAL BY FINDINGS: The cervical spine is normally aligned. No acute fracture. No aggressive lytic or blastic osseous lesions. Mild multilevel degenerative disc space height loss. Multilevel mild spinal canal stenosis secondary to disc protrusions and marginal osteophytes. Multilevel mild neuroforaminal narrowing secondary to uncovertebral arthrosis. Multilevel mild and moderate facet arthrosis. The thyroid gland is normal. No cervical lymphadenopathy. Bilateral carotid atherosclerosis. The visualized aerodigestive tract is normal. Please see concurrent CT chest report for intrathoracic findings. Impression: 1. No acute intracranial process. 2. No acute facial bone fracture. 3. No acute osseous abnormality of the cervical spine Electronically signed by: Rusty Claros MD (11/02/2019 11:19 PM) [facility]
--- NOTE | 2019-11-02 23:31 | PHYS DOC ---
Past Medical History Past Medical History: A-Fib, CHF, CVA, Diabetes-Type II, High Cholesterol, Hypertension, Hypothyroid, UTI Past Surgical History: Other Additional Past Surgical Histo: heart cath Smoking: Quit Greater Than 1 Year Alcohol Use: None Drug Use: None Adult General Chief Complaint Chief Complaint: MECHANICAL FALL HPI HPI 79-year-old female presents with report of mechanical trip and fall over the welcome mat at [facility] in [facility] at 10:15 this morning. Patient reports she ended up falling face first onto the floor. Patient does report some initial nose bleeding which has since resolved. Patient denies any loss of consciousness. Denies neck pain. Denies headache. Reports some bruising to forehead. Denies vision changes. Denies other injury. Patient does report some right lateral and anterior chest wall pain. Patient does report history of blo od thinner use- Xarelto. Review of Systems Review of Systems Constitutional: Denies fever or chills Eyes: Denies change in visual acuity, or eye pain HENT: Denies nasal congestion; reports epistaxis Respiratory: Denies cough or shortness of breath Cardiovascular: Reports right sided chest pain which is pleuritic; denies palpitations GI: Denies abdominal pain, nausea, or vomiting : Denies dysuria or hematuria Musculoskeletal: Denies back pain or joint pain Integument: Reports ecchymosis to forehead; denies laceration Neurologic: Denies headache, focal weakness or sensory changes Complete systems were reviewed and found to be within normal limits, except as documented in this note. Current Medications Current Medications Current Medications Medications (Trade) Dose Ordered Sig/Kassie Start Time Stop Time Status Last Admin Dose Admin Info (CONTRAST GIVEN -- Rx MONITORING) 1 each PRN DAILY PRN 11/02/19 22:30 11/03/19 00:16 DC Iohexol (Omnipaque 300 Mg/ml) 60 ml 1X ONCE 11/02/19 22:30 11/02/19 22:31 DC 11/02/19 22:40 60 ML Potassium Chloride (Klor-Con) 40 meq 1X ONCE 11/02/19 22:30 11/02/19 22:31 DC 11/02/19 22:51 40 MEQ Sodium Chloride 1,000 ml @ 1,000 mls/hr 1X ONCE 11/02/19 20:30 11/02/19 21:29 DC 11/02/19 20:30 1,000 MLS/HR Allergies Allergies Allergies Coded Allergies Type Severity Reaction Last Updated Verified No Known Medication Allergies Allergy Unknown 05/27/17 Yes Physical Exam Physical Exam Constitutional: Well developed, well nourished, no acute distress, non-toxic appearance HENT: Normocephalic, atraumatic, oropharynx moist, no bleeding appreciated to bilateral nares, TMs clear Eyes: Conjunctiva normal, no discharge Neck: Normal range of motion, no midline tenderness, supple Cardiovascular: Heart rate normal, regular rhythm Lungs & Thorax: Bilateral breath sounds clear to auscultation, no wheezes, right anterior chest wall tenderness on palpation Abdomen: Soft, no tenderness, pelvis stable and nontender Skin: Warm, dry, no erythema Back: No midline tenderness, no CVA tenderness Extremities: No tenderness, ROM intact, no edema, no deformity Neurologic: Alert and oriented X 3, normal motor function, normal sensory function,no focal deficits noted Psychologic: Affect normal, judgement normal Current Patient Data Vital Signs Vital Signs Date Time Temp Pulse Resp B/P (MAP) Pulse Ox O2 Delivery O2 Flow Rate FiO2 11/02/19 23:56 92 95 11/02/19 20:39 97.6 16 159/75 (103) Room Air 97.6 Lab Values Laboratory Tests Test 11/02/19 20:55 11/02/19 20:59 Magnesium Level 1.9 mg/dL (1.8-2.4) White Blood Count 8.6 x10^3/uL (4.0-11.0) Red Blood Count 3.85 x10^6/uL (3.50-5.40) Hemoglobin 12.4 g/dL (12.0-15.5) Hematocrit 36.6 % (36.0-47.0) Mean Corpuscular Volume 95 fL (79-100) Mean Corpuscular Hemoglobin 32 pg (25-35) Mean Corpuscular Hemoglobin Concent 34 g/dL (31-37) Red Cell Distribution Width 15.9 % (11.5-14.5) H Platelet Count 326 x10^3/uL (140-400) Neutrophils (%) (Auto) 71 % (31-73) Lymphocytes (%) (Auto) 18 % (24-48) L Monocytes (%) (Auto) 9 % (0-9) Eosinophils (%) (Auto) 2 % (0-3) Basophils (%) (Auto) 1 % (0-3) Neutrophils # (Auto) 6.1 x10^3/uL (1.8-7.7) Lymphocytes # (Auto) 1.5 x10^3/uL (1.0-4.8) Monocytes # (Auto) 0.8 x10^3/uL (0.0-1.1) Eosinophils # (Auto) 0.1 x10^3/uL (0.0-0.7) Basophils # (Auto) 0.1 x10^3/uL (0.0-0.2) Prothrombin Time 23.2 SEC (11.7-14.0) H Prothrombin Time INR 2.1 (0.8-1.1) H Activated Partial Thromboplast Time 47 SEC (24-38) H Sodium Level 142 mmol/L (136-145) Potassium Level 3.0 mmol/L (3.5-5.1) L Chloride Level 102 mmol/L (98-107) Carbon Dioxide Level 28 mmol/L (21-32) Anion Gap 12 (6-14) Blood Urea Nitrogen 20 mg/dL (7-20) Creatinine 1.0 mg/dL (0.6-1.0) Estimated GFR (Cockcroft-Gault) 53.3 Glucose Level 106 mg/dL (70-99) H Calcium Level 9.2 mg/dL (8.5-10.1) Laboratory Tests 11/02/19 20:59 Laboratory Tests 11/02/19 20:59 EKG EKG [] Radiology/Procedures Radiology/Procedures PROCEDURE: CT HEAD AND CERVICAL SPINE WO, CT MAXILLOFACIAL WO CONTRAST Date: 11/02/2019 8:26 PM Clinical Indication: Pain after falling Comparison: CT head 07/09/2016. Technique: 5 mm axial tomographic images were obtained of the head without contrast. These were viewed on brain and bone windows. Axial helical images of the face were obtained without contrast. Axial and coronal reconstruction was performed. CT imaging of the cervical spine was performed without contrast. Coronal and sagittal reformatted images were performed. One or more of the following dose reduction techniques were utilized: Automated exposure control (AEC), Adjustment of mA and/or kV according to patient size, Use of iterative reconstruction technique such as ASiR, CT scan done according to ALARA and image gently/image wisely CT HEAD FINDINGS: Mild generalized cerebral and cerebellar volume loss. Mild nonspecific periventricular hypoattenuation, most commonly seen with chronic small vessel ischemic disease. Small area of left parietal encephalomalacia. No intra- or extra-axial mass or fluid collection. No acute hemorrhage. The ventricles are normal in size, shape, and morphology. The valle-white matter junction is normal. The basilar cisterns are patent. The mastoid air cells are clear. No aggressive osseous lesion or fracture. CT FACE FINDINGS: There is no acute facial bone fracture. The paranasal sinuses are clear. The orbits are normal. The globes are intact. The nasal septum is mostly midline. The ostiomeatal complexes are narrow but patent. CT CERVICAL BY FINDINGS: The cervical spine is normally aligned. No acute fracture. No aggressive lytic or blastic osseous lesions. Mild multilevel degenerative disc space height loss. Multilevel mild spinal canal stenosis secondary to disc protrusions and marginal osteophytes. Multilevel mild neuroforaminal narrowing secondary to uncovertebral arthrosis. Multilevel mild and moderate facet arthrosis. The thyroid gland is normal. No cervical lymphadenopathy. Bilateral carotid atherosclerosis. The visualized aerodigestive tract is normal. Please see concurrent CT chest report for intrathoracic findings. Impression: 1. No acute intracranial process. 2. No acute facial bone fracture. 3. No acute osseous abnormality of the cervical spine Electronically signed by: Rusty Claros MD (11/02/2019 11:19 PM) [facility] PROCEDURE: CT CHEST ABD PELVIS W/CONTRAST Exam: CT of chest, abdomen and pelvis with contrast INDICATION: Pain, right chest pain, upper abdominal pain status post fall on blood thinner TECHNIQUE: Sequential axial images through the chest, abdomen and pelvis obtained following the administration of 60 mL of Omni 300 IV contrast. Sagittal and coronal reformatted images were reconstructed from the axial data and reviewed. Comparisons: None FINDINGS: Visualized portions of the thyroid are unremarkable. Several prominent but not enlarged mediastinal lymph nodes are identified. Heart is significantly enlarged. No pericardial effusion. Thoracic aorta has a normal course and caliber. Pulmonary artery is enlarged with right main pulmonary artery measuring 3 cm and left main pulmonary artery measuring 2.8 cm. Airways are patent. No consolidation or pneumothorax. There is intralobular septal thickening. No pleural effusion or thickening. Liver, spleen, pancreas, gallbladder and adrenals are unremarkable. Kidneys demonstrate symmetric enhancement. No perinephric inflammation or hydronephrosis. No renal or ureteral calculi are identified. Bladder is partially distended and appears thin-walled. Uterus is absent. No abnormal adnexal mass. No suspicious osseous lesions or acute fractures. Large and small bowel are unremarkable. No free intra-abdominal air or fluid. No obstruction. Abdominal aorta has a normal course and caliber. Abdominal vasculature is patent. No enlarged abdominal lymph nodes are identified. No suspicious osseous lesions or acute fractures. IMPRESSION: 1. No sequela of acute traumatic injury identified within the chest, abdomen or pelvis. 2. Cardiomegaly with enlargement of the pulmonary artery. Correlate for pulmonary arterial hypertension Exposure: One or more of the following in the visualized dose reduction techniques were utilized for this examination: 1. Automated exposure control 2. Adjustment of the MA and/or KV according to patient size 3. Use of iterative of reconstructive technique Electronically signed by: Peter Trimble MD (11/02/2019 11:26 PM) [facility] Course & Med Decision Making Course & Med Decision Making Pertinent Labs and Imaging studies reviewed. (See chart for details) Elderly patient presents status post mechanical trip and fall with subsequent right sided chest wall pain and facial contusion. Patient neurologically intact. No midline spine tenderness appreciated. No deformity noted. CT head/cervical spine without acute process. CT chest/abdomen/ pelvis also without acute injury. Labs obtained and posted to chart. Hypokalemia addressed. Ice applied. Patient stable for discharge with outpatient follow-up with PCP. Incentive spirometer provided with education. Discussed findings and plan with patient and family, who acknowledge understanding and agreement. Dragon Disclaimer Dragon Disclaimer This electronic medical record was generated, in whole or in part, using a voice recognition dictation system. Departure Departure Impression: Primary Impression: Fall Additional Impressions: Head contusion Contusion, chest wall Hypokalemia Disposition: 01 HOME, SELF-CARE Condition: STABLE Referrals: KAMRAN MCALLISTER MD (PCP) Patient Instructions: Chest Contusion, [id number], Facial or Scalp Contusion, [id number], Fall Prevention and Home Safety, Evdd-uj-[id number], Hypokalemia-Brief, Incentive Spirometer, Potassium Content of Foods Additional Instructions: Use over the counter Tylenol as needed for pain. Problem Qualifiers Primary Impression: Fall Encounter type: initial encounter Qualified Codes: W19.XXXA - Unspecified fall, initial encounter Additional Impressions: Head contusion Encounter type: initial encounter Contusion of head detail: unspecified part of head Qualified Codes: S00.93XA - Contusion of unspecified part of head, initial encounter Contusion, chest wall Encounter type: initial encounter Laterality: right Qualified Codes: S20.211A - Contusion of right front wall of thorax, initial encounter DOREEN WAN DO Nov 02, 2019 23:31
[2019-11-02 23:56] VITALS: BP 171/77
== END 2019-11-03 00:05 | disposition home or self-care (01) ==
LOC: ER 19:03
DX: S00.83XA Contusion of other part of head, initial encounter (principal); S20.211A Contusion of right front wall of thorax, initial encounter; R51 Headache; R04.0 Epistaxis; R07.89 Other chest pain; E87.6 Hypokalemia; I48.91 Unspecified atrial fibrillation; I11.0 Hypertensive heart disease with heart failure; I50.9 Heart failure, unspecified; E78.00 Pure hypercholesterolemia, unspecified; E03.9 Hypothyroidism, unspecified; Z86.73 Personal history of transient ischemic attack (TIA), and cerebral infarction without residual deficits; Z87.891 Personal history of nicotine dependence; W01.0XXA Fall on same level from slipping, tripping and stumbling without subsequent striking against object, initial encounter; Z91.81 History of falling; Y93.89 Activity, other specified; Y92.29 Other specified public building as the place of occurrence of the external cause; Y99.8 Other external cause status
CPT/HCPCS: 36415; 70450; 70486; 71260; 72125; 74177; 80048; 83735; 85025; 85610; 85730; 99285; J7030; Q9967

== ENCOUNTER → 2020-04-15 | Outpatient (CLI) | payer MEDICARE ==
[2020-04-14 11:22] VITALS: BP 144/67
[~2020-04-15] MED LIST changes: +TROS20TA2 PO
--- NOTE | 2020-04-15 14:38 | CARD ---
MR#: [id number] Date of Study: 04/15/2020 Ordering Physician: GARCIA SR, Referring Physician: GARCIA SR, Tech: Ramila Powers APPROVED REPORT EXAM: Two-dimensional and M-mode echocardiogram with Doppler and color Doppler. Other Information Quality : AverageHR: 74bpm INDICATION Cardiomyopathy RISK FACTORS Hypertension Diabetes 2D DIMENSIONS RVDd3.5 (2.9-3.5cm)Left Atrium(2D)3.8 (1.6-4.0cm) IVSd1.4 (0.7-1.1cm)Aortic Root(2D)2.8 (2.0-3.7cm) LVDd4.6 (3.9-5.9cm)LVOT Diameter1.9 (1.8-2.4cm) PWd1.0 (0.7-1.1cm)LVDs3.0 (2.5-4.0cm) FS (%) 34.8 %SV61.0 ml LVEF(%)64.1 (>50%) Aortic Valve AoV Peak Rodrigo.202.1cm/sAoV VTI37.5cm AO Peak GR.16.3mmHgLVOT Peak Rodrigo.157.9cm/s LVOT VTI 33.72cmAO Mean GR.9mmHg ARMANDO (VMAX)1.53ej4DTJ (VTI)2.66cm2 AI P 1/2 Rxem950fv Mitral Valve MV E Mean Gr.4mmHg Pulmonary Valve PV Peak Uwtkbmtq36.7cm/sPV Peak Grad.3mmHg Tricuspid Valve TR P. Xgmrzqjp290qi/sRAP [id number] TR Peak Gr.61qjOsUSCF51ynKu LEFT VENTRICLE The left ventricle is normal size. There is mild concentric left ventricular hypertrophy. The left ve ntricular systolic function is normal and the ejection fraction is within normal range. The Ejection Fraction is 60-65%. Septal motion consistent with conduction abnormality. RIGHT VENTRICLE The right ventricle is normal size. There is normal right ventricular wall thickness. The right ventr icular systolic function is normal. ATRIA The left atrium is moderately dilated. The right atrium size is normal. The interatrial septum is int act with no evidence for an atrial septal defect or patent foramen ovale as noted on 2-D or Doppler i maging. AORTIC VALVE The aortic valve is thickened but opens well. Doppler and Color Flow revealed mild to moderate aortic regurgitation. There is no significant aortic valvular stenosis. MITRAL VALVE Mitral annular calcification is moderate. There is no evidence of mitral valve prolapse. There is no mitral valve stenosis. Doppler and Color-flow revealed mild mitral regurgitation. TRICUSPID VALVE The tricuspid valve is normal in structure and function. Doppler and Color Flow revealed mild tricusp id regurgitation with an estimated PAP of 38 mmHg. There is no tricuspid valve stenosis. PULMONIC VALVE The pulmonary valve is normal in structure and function. Doppler and Color Flow revealed mild to mode rate pulmonic valvular regurgitation. GREAT VESSELS The aortic root is normal in size. The IVC is normal in size and collapses >50% with inspiration. PERICARDIAL EFFUSION There is no evidence of significant pericardial effusion. Critical Notification Critical Value: No <Conclusion> The left ventricle is normal size. The left ventricular systolic function is normal and the ejection fraction is within normal range. The Ejection Fraction is 60-65%. There is mild concentric left ventricular hypertrophy. Doppler and Color Flow revealed mild to moderate aortic regurgitation. There is no significant aortic valvular stenosis. Mitral annular calcification is moderate. Doppler and Color-flow revealed mild mitral regurgitation. Doppler and Color Flow revealed mild tricuspid regurgitation with an estimated PAP of 38 mmHg. Signed by : Escobar Holloway MD Electronically Approved : 04/15/2020 14:37:39
== END | disposition home or self-care (01) ==
LOC: ECHO 13:20
PROVIDERS: ATTEND Internal Medicine Cardiovascular Disease
DX: I08.8 Other rheumatic multiple valve diseases (principal); I42.1 Obstructive hypertrophic cardiomyopathy
CPT/HCPCS: 93306

== ENCOUNTER → 2020-05-06 | Outpatient (CLI) | payer MEDICARE ==
[2020-04-14 11:22] VITALS: BP 144/67
[~2020-05-06] MED LIST changes: +REGADENOSON 0.4 MG/5 ML DISP.SYRIN. IV ONE
--- NOTE | 2020-05-06 13:06 | RAD ---
MR#: [id number] Date of Study: 05/06/2020 Ordering Physician: GARCIA SR, Referring Physician: MAXWELL RODNEY Tech: RT Annabella (R) (N) APPROVED REPORT Test Type: Pharmacological Stress Nurse/Tech: Pepper Chaudhari R.N. Test Indications: afib Cardiac History: afib, htn, dm Medications: see attached list Medical History: see ehr Resting ECG: AFIB with wide QRS Resting Heart Rate: 82 bpm Resting Blood Pressure: 153/70mmHg Pretest Chest Pain: No chest pain Nurse/Tech Notes lungs cta, heart tones irregular Consent: The procedure was explained to the patient in lay terms. Informed consent was witnessed. Moe eout was entered into [employer]. History and Stress Test performed by [facility]. Details Pharmacologic stress testing was performed using 0.4mg per 5ml of regadenoson given intravenously ove r 7-10 seconds. Stress Symptoms pt reported chest pain 3/10, during recovery that subsided and was gone when test completed POST EXERCISE Reason for Termination: Infusion complete Target HR: No Max HR: 117 bpm Max Blood Pressure: 150/73mmHg Chest Pain: Yes. see above Arrhythmia: Yes. continued AFib throughout with multifocal QRS, similar to ECG from recent inpt visit ST Change: No. INTERPRETATION Stress EKG Conclusion: Baseline EKG showed sinus rhythm with intraventricular conduction delay. Nond iagnostic changes at peak stress. No other arrhythmias. Imaging Protocol IMAGE PROTOCOL: Rest Tc-99m/stress Tc-99m 1 day Rest: Stress: Viability: Radiopharm.Tc99m [id number] Sestamibi [id number] 33mCi Duration 13.5min. 13.5min. Img Date 05/06/2020 05/06/2020 Inj-Img [id number]. 60min. Rest Admin Site:IV - Right AntecubitalAdministrator:RT Jovi (R)(N) Stress Admin Site: IV - Right AntecubitalAdministrator: LEISA Bella STRESS DATA End Diast. Vol.76.0mlAv. Heart Rate87.0bpm LVEDV index BSA44.0mlCardiac Output0.0L/min End Syst. Vol.25.0mlCO Index BSA0.0L/min LVESV index BSA14.0mlMyocardial Uahs258.0g Eject. Notbjclo98.0% Stress Scores Regional WT1.00Summed WT24.00 Regional WM1.00Summed WM6.00 LV Perfusion Scintigraphic images did not show any significant fixed or reversible defects but there was transient ischemic dilatation of 1.6 noted on stress images. Wall Motion Normal left ventricular systolic function with ejection fraction calculated at 67%. LV Perf. Quant 17 Seg. SSS3.00 17 Seg. SRS5.00 17 Seg. SDS0.00 Stress Defect Extent (% LAD)0.00Rest Defect Extent (% LAD)3.10Rev. Defect Extent (% LAD)0.00 Stress Defect Extent (% LCX) 22.50Rest Defect Extent (% LCX)40.00Rev. Defect Extent (% LCX)0.00 Stress Defect Extent (% RCA)0.00Rest Defect Extent (% RCA)0.00Rev. Defect Extent (% RCA)0.00 Stress Defect Extent (% NICOLE)3.90Rest Defect Extent (% NICOLE)12.00Rev. Defect Extent (% NICOLE)0.00 Conclusion 1. Regadenoson cardioisotope stress test did not show any significant perfusion defects but there was transient ischemic dilatation that could indicate balanced ischemia. 2. Normal left ventricular systolic function with ejection fraction calculated at 67%. 3. If clinical suspicion for CAD is high, consider cardiac catheterization Signed by : Garcia Sr, Electronically Approved : 05/06/2020 13:05:44
== END | disposition home or self-care (01) ==
LOC: NM 09:56
PROVIDERS: ATTEND Internal Medicine Cardiovascular Disease
DX: I48.91 Unspecified atrial fibrillation (principal); I10 Essential (primary) hypertension; E11.9 Type 2 diabetes mellitus without complications; Z85.118 Personal history of other malignant neoplasm of bronchus and lung
CPT/HCPCS: 78452; 93017; A9500; J2785

== ENCOUNTER 2020-06-17 11:57 | Inpatient (IN) | payer MEDICARE ==
[~2020-06-17] VITALS: Ht 152.4 cm; Wt 68.2 kg
[~2020-06-17 11:57] MED LIST changes: -REGADENOSON 0.4 MG/5 ML DISP.SYRIN. IV ONE
[2020-06-17 15:10] LABS: BASO # 0.1 x10^3/uL (0.0-0.2); BASO % 1 % (0-3); EOS % 0 % (0-3); HEMATOCRIT 39.8 % (36.0-47.0); HEMOGLOBIN 14.1 g/dL (12.0-15.5); LYMPH % 8 % (24-48); MEAN CORPUSCULAR HEMOGLOBIN 33 pg (25-35); MEAN CORPUSCULAR HGB CONC 35 g/dL (31-37); MEAN CORPUSCULAR VOLUME 94 fL (79-100); MONO # 0.7 x10^3/uL (0.0-1.1); MONO % 6 % (0-9); NEUT # 9.7 x10^3/uL (1.8-7.7); NEUT % 84 % (31-73); PLATELET COUNT 381 x10^3/uL (140-400); RED BLOOD COUNT 4.23 x10^6/uL (3.50-5.40); WHITE BLOOD COUNT 11.5 x10^3/uL (4.0-11.0)
[2020-06-17 15:22] LABS: CALCIUM 9.9 mg/dL (8.5-10.1); CREATININE 0.9 mg/dL (0.6-1.0); GFR 60.2; POTASSIUM 3.1 mmol/L (3.5-5.1)
[2020-06-17 15:27] LABS: ALBUMIN 4.2 g/dL (3.4-5.0); TOTAL BILIRUBIN 1.6 mg/dL (0.2-1.0); TOTAL PROTEIN 8.3 g/dL (6.4-8.2)
[2020-06-17] MEDS ORDERED: IOHEXOL 300 MG/ML 100ML VIAL. IV ONE (15:30)
[2020-06-17] MEDS ORDERED: CONTRAST GIVEN. MC PRN (15:45)
[2020-06-17] MEDS ORDERED: POTASSIUM CHLORIDE 20 MEQ TABLET.ER. PO ONE ×2 (17:00→21:30)
[2020-06-17] MEDS ORDERED: IV NORMAL SALINE 500ML BAG 500 ML IV ONE (17:00)
[2020-06-17 17:38] LABS: PROTHROMBIN TIME PATIENT 19.3 SEC (11.7-14.0)
--- NOTE | 2020-06-17 17:48 | RAD ---
Exam: Right shoulder 3 views INDICATION: Right shoulder pain TECHNIQUE: Frontal view of the right shoulder with internal and external rotation and transscapular Y view Comparisons: None FINDINGS: Bone mineralization is normal. There is mild degenerative change at the glenohumeral joint. Degenerative changes noted at the acromioclavicular joint. Subacromial joint space is well-maintained. Soft tissues are unremarkable. IMPRESSION: No acute osseous abnormality. Electronically signed by: Peter Trimble MD (06/17/2020 5:45 PM) [id number]
--- NOTE | 2020-06-17 17:57 | RAD ---
Exam: CT right upper extremity with contrast INDICATION: Right upper arm pain and bruising, no injury TECHNIQUE: Sequential axial images through the right upper extremity obtained following the administration of 75 mL of Isovue-370 IV contrast. Sagittal and coronal reformatted images were reconstructed from the axial data and reviewed. Comparisons: Radiograph same day FINDINGS: Bone mineralization is normal. There is mild osteoarthritic change at the glenohumeral joint and at the acromioclavicular joint space. Subacromial space is well-maintained. No acute fractures seen. There is nonopacification of a vein draining into the axillary vein seen on series 2 image 62. Otherwise, visualized vasculature is patent. There is mild fat stranding in the subcutaneous tissues involving the anterior right shoulder with some associated skin thickening. There are several 2 to 3 mm pulmonary nodules noted in the visualized right lung. IMPRESSION: 1. Fat stranding and skin thickening at the anterior right shoulder, may relate to cellulitis. Correlate with physical exam. 2. There is nonopacification of a vein in the axilla which drains into the axillary vein. This may be simply related to phase of contrast into flow dynamics. [place] with ultrasound. 3. No acute traumatic injury is identified. Exposure: One or more of the following in the visualized dose reduction techniques were utilized for this examination: 1. Automated exposure control 2. Adjustment of the MA and/or KV according to patient size 3. Use of iterative of reconstructive technique Electronically signed by: Peter Trimble MD (06/17/2020 5:54 PM) [id number]
--- NOTE | 2020-06-17 17:58 | RAD ---
Right upper extremity venous Doppler dated 06/17/2020. No comparison available. Clinical data indication: Right arm bruising. FINDINGS: Grayscale, color-flow and spectral waveform analysis performed to include the deep venous system of the right upper extremity. There is normal compressibility, phasicity and augmentation of flow throughout. No filling defects are seen. IMPRESSION: No evidence of right upper extremity deep vein thrombosis. Electronically signed by: Misha Ruvalcaba MD (06/17/2020 5:55 PM) [facility]ERT[facility]
--- NOTE | 2020-06-17 18:14 | PDOC1 ---
History and Physical Date of Admission Date of Admission DATE: 06/17/20 TIME: 18:13 Identification/Chief Complaint Chief Complaint SEEN IN ER WITH PAIN AND SWELLING, Apparent hematoma to right shoulder, upper arm after applying voltaren gel to shoulder Wednesday, it appears that voltaren gel has been associated with bleeding when used with xarelto Past Medical History Cardiovascular: AFIB, HTN, Hyperlipidemia, Other Pulmonary: No pertinent hx CENTRAL NERVOUS SYSTEM: CVA GI: No pertinent hx Heme/Onc: No pertinent hx Hepatobiliary: No pertinent hx Psych: No pertinent hx Musculoskeletal: Osteoarthritis Rheumatologic: No pertinent hx Infectious disease: No pertinent hx Renal/: No pertinent hx, UTI Endocrine: Diabetes, Hypothyroidism Past Surgical History Past Surgical History: Breast Biopsy, Hysterectomy, Other Family History Family History: Cancer, Heart Disease, Hypertension Social History Smoke: No ALCOHOL: none Drugs: None Current Medications Current Medications Current Medications Iohexol (Omnipaque 300 Mg/ml) 75 ml 1X ONCE IV Last administered on 06/17/20at 17:20; Start 06/17/20 at 15:30; Stop 06/17/20 at 15:31; Status DC Info (CONTRAST GIVEN -- Rx MONITORING) 1 each PRN DAILY PRN MC SEE COMMENTS; Start 06/17/20 at 15:45; Stop 06/19/20 at 15:44 Sodium Chloride 500 ml @ 500 mls/hr 1X ONCE IV ; Start 06/17/20 at 17:00; Stop 06/17/20 at 17:59; Status DC Potassium Chloride (Klor-Con) 40 meq 1X ONCE PO Last administered on 06/17/20at 17:00; Start 06/17/20 at 17:00; Stop 06/17/20 at 17:01; Status DC Active Scripts Active Diltiazem 24HR Cd (Diltiazem Hcl) 120 Mg Cap.er.24h 120 Mg PO DAILY 30 Days Reported Hydrocodone-Apap 5-325 (Hydrocodone Bit/Acetaminophen) 1 Tab Tablet 1 Tab PO PRN Q6HRS PRN Trospium Chloride 20 Mg Tablet 20 Mg PO BID Atorvastatin Calcium 10 Mg Tablet 1 Tab PO QODAY Levothyroxine Sodium 75 Mcg Tablet 1 Tab PO DAILY Xarelto (Rivaroxaban) 20 Mg Tablet 20 Mg PO DAILY Metformin Hcl 500 Mg Tablet 1 Tab PO BID RESUME ON 03/24/2017 AM Hydrochlorothiazide Capsule (Hydrochlorothiazide) 12.5 Mg Capsule 25 Mg PO DAILY next dose tomorrow 07/13/16 at 9 AM Allergies Allergies: Coded Allergies: No Known Medication Allergies (Verified Allergy, Unknown, 05/27/17) ROS General: No: Chills, Night Sweats, Fatigue, Malaise, Appetite, Other PSYCHOLOGICAL ROS: No: Anxiety, Behavioral Disorder, Concentration difficultie, Decreased libido, Depression, Disorientation, Hallucinations, Hostility, Irritablity, Memory difficulties, Mood Swings, Obsessive thoughts, Physical abuse, Sexual abuse, Sleep disturbances, Suicidal ideation, Other Eyes: No Blurry vision, No Decreased vision, No Double vision, No Dry eyes, No Excessive tearing, No Eye Pain, No Itchy Eyes, No Loss of vision, No Photophobia, No Scotomata, No Uses contacts, No Uses glasses, No Other HEENT: No: Heacaches, Visual Changes, Hearing change, Nasal congestion, Nasal discharge, Oral lesions, Sinus pain, Sore Throat, Epistaxis, Sneezing, Snoring, Tinnitus, Vertigo, Vocal changes, Other ALLERGY AND IMMUNOLOGY: No: Hives, Insect Bite Sensitivity, Itchy/Watery Eyes, Nasal Congestion, Post Nasal Drip, Seasonal Allergies, Other Hematological and Lymphatic: YES: Bleeding Problems, Brusing; No: Blood Clots, Blood Transfusions, Night Sweats, Pallor, Swollen Lymph Nodes, Other ENDOCRINE: No: Breast Changes, Galactorrhea, Hair Pattern Changes, Hot Flashes, Malaise/lethargy, Mood Swings, Palpitations, Polydipsia/polyuria, Skin Changes, Temperature Intolerance, Unexpected Weight Changes, Other Breast: No New/Changing Breast Lumps, No Nipple changes, No Nipple discharge, No Other Respiratory: No: Cough, Hemoptysis, Orthopnea, Pleuritic Pain, Shortness of breath, SOB with excertion, Sputum Changes, Stridor, Tachypnea, Wheezing, Other Cardiovascular: No Chest Pain, No Palpitations, No Orthopnea, No Paroxysmal Noc. Dyspnea, No Edema, No Lt Headedness, No Other Gastrointestinal: No Nausea, No Vomiting, No Abdominal Pain, No Diarrhea, No Constipation, No Melena, No Hematochezia, No Other Genitourinary: No Dysuria, No Frequency, No Incontinence, No Hematuria, No Retention, No Discharge, No Urgency, No Pain, No Flank Pain, No Other, No , No , No , No , No , No , No Musculoskeletal: Yes Joint Pain, Yes Joint Stiffness Neurological: No Behavorial Changes, No Bowel/Bladder ControlChng, No Confusion, No Dizziness, No Gait Disturbance, No Headaches, No Impaired Coord/balance, No Memory Loss, No Numbness/Tingling, No Seizures, No Speech Problems, No Tremors, No Visual Changes, No Weakness, No Other Skin: Yes Skin Lesion Changes Physical Exam General: Alert, Oriented X3, Cooperative, No acute distress, mild distress HEENT: Atraumatic, PERRLA, EOMI, Mucous membr. moist/pink Lungs: Clear to auscultation, Normal air movement Heart: murmurs Breasts: Not examined Abdomen: Normal bowel sounds, Soft Rectal Exam: not examined PELVIC: Examination not indicated Extremities: No cyanosis, No edema Skin: No breakdown Neuro: Normal speech, Strength at 5/5 X4 ext, Sensation intact, Cranial nerves 3-12 NL Psych/Mental Status: Mental status NL, Mood NL Vitals Vitals Vital Signs Date Time Temp Pulse Resp B/P (MAP) Pulse Ox O2 Delivery O2 Flow Rate FiO2 06/17/20 13:25 97.7 105 16 129/70 (89) 95 Room Air 97.7 Labs Labs Laboratory Tests Test 06/17/20 14:45 06/17/20 17:15 White Blood Count 11.5 x10^3/uL (4.0-11.0) Red Blood Count 4.23 x10^6/uL (3.50-5.40) Hemoglobin 14.1 g/dL (12.0-15.5) Hematocrit 39.8 % (36.0-47.0) Mean Corpuscular Volume 94 fL (79-100) Mean Corpuscular Hemoglobin 33 pg (25-35) Mean Corpuscular Hemoglobin Concent 35 g/dL (31-37) Red Cell Distribution Width 16.0 % (11.5-14.5) Platelet Count 381 x10^3/uL (140-400) Neutrophils (%) (Auto) 84 % (31-73) Lymphocytes (%) (Auto) 8 % (24-48) Monocytes (%) (Auto) 6 % (0-9) Eosinophils (%) (Auto) 0 % (0-3) Basophils (%) (Auto) 1 % (0-3) Neutrophils # (Auto) 9.7 x10^3/uL (1.8-7.7) Lymphocytes # (Auto) 1.0 x10^3/uL (1.0-4.8) Monocytes # (Auto) 0.7 x10^3/uL (0.0-1.1) Eosinophils # (Auto) 0.0 x10^3/uL (0.0-0.7) Basophils # (Auto) 0.1 x10^3/uL (0.0-0.2) Sodium Level 129 mmol/L (136-145) Potassium Level 3.1 mmol/L (3.5-5.1) Chloride Level 89 mmol/L (98-107) Carbon Dioxide Level 30 mmol/L (21-32) Anion Gap 10 (6-14) Blood Urea Nitrogen 20 mg/dL (7-20) Creatinine 0.9 mg/dL (0.6-1.0) Estimated GFR (Cockcroft-Gault) 60.2 BUN/Creatinine Ratio 22 (6-20) Glucose Level 128 mg/dL (70-99) Calcium Level 9.9 mg/dL (8.5-10.1) Total Bilirubin 1.6 mg/dL (0.2-1.0) Aspartate Amino Transf (AST/SGOT) 22 U/L (15-37) Alanine Aminotransferase (ALT/SGPT) 21 U/L (14-59) Alkaline Phosphatase 113 U/L (46-116) Total Protein 8.3 g/dL (6.4-8.2) Albumin 4.2 g/dL (3.4-5.0) Albumin/Globulin Ratio 1.0 (1.0-1.7) Prothrombin Time 19.3 SEC (11.7-14.0) Prothromb Time International Ratio 1.7 (0.8-1.1) Activated Partial Thromboplast Time 34 SEC (24-38) Laboratory Tests Test 06/17/20 14:45 06/17/20 17:15 White Blood Count 11.5 x10^3/uL (4.0-11.0) Red Blood Count 4.23 x10^6/uL (3.50-5.40) Hemoglobin 14.1 g/dL (12.0-15.5) Hematocrit 39.8 % (36.0-47.0) Mean Corpuscular Volume 94 fL (79-100) Mean Corpuscular Hemoglobin 33 pg (25-35) Mean Corpuscular Hemoglobin Concent 35 g/dL (31-37) Red Cell Distribution Width 16.0 % (11.5-14.5) Platelet Count 381 x10^3/uL (140-400) Neutrophils (%) (Auto) 84 % (31-73) Lymphocytes (%) (Auto) 8 % (24-48) Monocytes (%) (Auto) 6 % (0-9) Eosinophils (%) (Auto) 0 % (0-3) Basophils (%) (Auto) 1 % (0-3) Neutrophils # (Auto) 9.7 x10^3/uL (1.8-7.7) Lymphocytes # (Auto) 1.0 x10^3/uL (1.0-4.8) Monocytes # (Auto) 0.7 x10^3/uL (0.0-1.1) Eosinophils # (Auto) 0.0 x10^3/uL (0.0-0.7) Basophils # (Auto) 0.1 x10^3/uL (0.0-0.2) Sodium Level 129 mmol/L (136-145) Potassium Level 3.1 mmol/L (3.5-5.1) Chloride Level 89 mmol/L (98-107) Carbon Dioxide Level 30 mmol/L (21-32) Anion Gap 10 (6-14) Blood Urea Nitrogen 20 mg/dL (7-20) Creatinine 0.9 mg/dL (0.6-1.0) Estimated GFR (Cockcroft-Gault) 60.2 BUN/Creatinine Ratio 22 (6-20) Glucose Level 128 mg/dL (70-99) Calcium Level 9.9 mg/dL (8.5-10.1) Total Bilirubin 1.6 mg/dL (0.2-1.0) Aspartate Amino Transf (AST/SGOT) 22 U/L (15-37) Alanine Aminotransferase (ALT/SGPT) 21 U/L (14-59) Alkaline Phosphatase 113 U/L (46-116) Total Protein 8.3 g/dL (6.4-8.2) Albumin 4.2 g/dL (3.4-5.0) Albumin/Globulin Ratio 1.0 (1.0-1.7) Prothrombin Time 19.3 SEC (11.7-14.0) Prothromb Time International Ratio 1.7 (0.8-1.1) Activated Partial Thromboplast Time 34 SEC (24-38) Images Images Imaging Protocol IMAGE PROTOCOL: Rest Tc-99m/stress Tc-99m 1 day Rest: Stress: Viability: Radiopharm. Tc99m Sestamibi Tc99m Sestamibi Dose 10mCi 33mCi Duration 13.5min. 13.5min. Img Date 05/06/2020 05/06/2020 Inj-Img Time 60min. 60min. Rest Admin Site: IV - Right Antecubital Resort Keeper: RT Jovi (R)(N) Stress Admin Site: IV - Right Antecubital Resort Keeper: LEISA Bella STRESS DATA End Diast. Vol. 76.0ml Av. Heart Rate 87.0bpm LVEDV index BSA 44.0ml Cardiac Output 0.0L/min End Syst. Vol. 25.0ml CO Index BSA 0.0L/min LVESV index BSA 14.0ml Myocardial Mass 118.0g Eject. Fraction 67.0% Stress Scores Regional WT 1.00 Summed WT 24.00 Regional WM 1.00 Summed WM 6.00 LV Perfusion Scintigraphic images did not show any significant fixed or reversible defects but there was transient ischemic dilatation of 1.6 noted on stress images. Wall Motion Normal left ventricular systolic function with ejection fraction calculated at 67%. LV Perf. Quant 17 Seg. SSS 3.00 17 Seg. SRS 5.00 17 Seg. SDS 0.00 Stress Defect Extent (% LAD) 0.00 Rest Defect Extent (% LAD) 3.10 Rev. Defect Extent (% LAD) 0.00 Stress Defect Extent (% LCX) 22.50 Rest Defect Extent (% LCX) 40.00 Rev. Defect Extent (% LCX) 0.00 Stress Defect Extent (% RCA) 0.00 Rest Defect Extent (% RCA) 0.00 Rev. Defect Extent (% RCA) 0.00 Stress Defect Extent (% NICOLE) 3.90 Rest Defect Extent (% NICOLE) 12.00 Rev. Defect Extent (% NICOLE) 0.00 Conclusion 1. Regadenoson cardioisotope stress test did not show any significant perfusion defects but there was transient ischemic dilatation that could indicate balanced ischemia. 2. Normal left ventricular systolic function with ejection fraction calculated at 67%. 3. If clinical suspicion for CAD is high, consider cardiac catheterization Signed by : Garcia Sr, Electronically Approved : 05/06/2020 13:05:44 DICTATED and SIGNED BY: GARCIA SR MD DATE: 05/06/20 1126 PATIENT: ALVIN CHAUHAN ACCOUNT: [id number] : 1940 LOCATION: ER AGE: 79 SEX: F EXAM STATUS: REG ER ORD. PHYSICIAN: LUIS BROWN APRN REASON: large bruise to R upper arm no injury PROCEDURE: VENOUS UPPER EXTREMITY RIGHT Right upper extremity venous Doppler dated 06/17/2020. No comparison available. Clinical data indication: Right arm bruising. FINDINGS: Grayscale, color-flow and spectral waveform analysis performed to include the deep venous system of the right upper extremity. There is normal compressibility, phasicity and augmentation of flow throughout. No filling defects are seen. IMPRESSION: No evidence of right upper extremity deep vein thrombosis. Electronically signed by: Misha Ruvalcaba MD (06/17/2020 5:55 PM) [facility] [place] DICTATED and SIGNED BY: MISHA RUVALCABA MD DATE: 06/17/20 1755 Exam: CT right upper extremity with contrast INDICATION: Right upper arm pain and bruising, no injury TECHNIQUE: Sequential axial images through the right upper extremity obtained following the administration of 75 mL of Isovue-370 IV contrast. Sagittal and coronal reformatted images were reconstructed from the axial data and reviewed. Comparisons: Radiograph same day FINDINGS: Bone mineralization is normal. There is mild osteoarthritic change at the glenohumeral joint and at the acromioclavicular joint space. Subacromial space is well-maintained. No acute fractures seen. There is nonopacification of a vein draining into the axillary vein seen on series 2 image 62. Otherwise, visualized vasculature is patent. There is mild fat stranding in the subcutaneous tissues involving the anterior right shoulder with some associated skin thickening. There are several 2 to 3 mm pulmonary nodules noted in the visualized right lung. IMPRESSION: 1. Fat stranding and skin thickening at the anterior right shoulder, may relate to cellulitis. Correlate with physical exam. 2. There is nonopacification of a vein in the axilla which drains into the axillary vein. This may be simply related to phase of contrast into flow dynamics. [place] with ultrasound. 3. No acute traumatic injury is identified. Exposure: One or more of the following in the visualized dose reduction techniques were utilized for this examination: 1. Automated exposure control 2. Adjustment of the MA and/or KV according to patient size 3. Use of iterative of reconstructive technique Electronically signed by: Peter Coronel MD (06/17/2020 5:54 PM) [id number] DICTATED and SIGNED BY: PETER CORONEL MD DATE: 06/17/201753 VTE Prophylaxis Ordered VTE Prophylaxis Devices: No VTE Pharmacological Prophylaxi: Yes Assessment/Plan Assessment/Plan impression 1. right shoulder pain 2, hematoma sec to voltaren gel Fat stranding and skin thickening at the anterior right shoulder, may relate to cellulitis. but appears to be ecchymosis , not cellulitis 3. mild to moderate aortic regurgitation. no significant aortic valvular stenosis. Mitral annular calcification is moderate. recent echo 4. a-fib on xarelto 5. diabetes plan admit hold voltaren and discontinue pain control cont home meds d/c iv clindamycin accuchecks consult ID Justicifation of Admission Dx: Justifications for Admission: Justification of Admission Dx: Yes Cellulitis: Cellulitis ANALILIA SARAVIA MD Jun 17, 2020 18:14
[2020-06-17] MEDS ORDERED: CLINDAMYCIN 600MG PREMIX 50 ML IV ONE (19:00)
[2020-06-17] MEDS ORDERED: ANTI-COAG MONITOR BY PHARMACY. MC PRN (20:15)
[2020-06-17 20:25] VITALS: BP 163/70
[2020-06-17] MEDS: OXYBUTYNIN CHLORIDE 5 MG TABLET PO SCH (21:02)
--- NOTE | 2020-06-17 21:03 | PHYS DOC ---
Past Medical History Past Medical History: A-Fib, CHF, CVA, Diabetes-Type II, High Cholesterol, Hypertension, Hypothyroid, UTI Additional Past Medical Histor: bladder infection heart cath cardiomyopathy possible CHF Past Surgical History: Other Additional Past Surgical Histo: heart cath Smoking Status: Former Smoker Alcohol Use: None Drug Use: None General Adult EDM: Chief Complaint: SHOUDLER HPI: HPI: Patient is a 79 year old female, accompanied by a friend, who presents to the emergency department with complaints of pain in her right shoulder and bruising to her right upper arm for the last 3 days. Patient states that her son had rubbed some [id number] Voltaren onto her arm for relief of the pain 3 days ago and since then the area has become bruised and more painful. She denies any recent fall or injury. She denies any numbness, tingling, or weakness of the affected extremity. Patient states that she takes a blood thinner that starts with a X. She denies any shortness of breath, chest pain, cough, weakness, fatigue, rash, or itching. She currently rates the pain a 7 out of 10 on the pain scale, she denies any radiation of the pain, she states it is a constant sharp pain, she denies any alleviating factors the pain is worse with movement and palpation. Review of Systems: Review of Systems: Constitutional: Denies fever or chills. [] HENT: Denies nasal congestion or sore throat. [] Respiratory: Denies cough or shortness of breath. [] Cardiovascular: Denies chest pain or edema. [] GI: Denies abdominal pain, nausea, vomiting, or diarrhea. [] : Denies dysuria. [] Musculoskeletal: see HPI Integument: see HPI Neurologic: Denies headache, focal weakness or sensory changes. [] Psychiatric: Denies depression or anxiety. [] Heart Score: Risk Factors: Risk Factors: DM, Current or recent (<one month) smoker, HTN, HLP, family history of CAD, obesity. Risk Scores: Score 0 - 3: 2.5% MACE over next 6 weeks - Discharge Home Score 4 - 6: 20.3% MACE over next 6 weeks - Admit for Clinical Observation Score 7 - 10: 72.7% MACE over next 6 weeks - Early Invasive Strategies Current Medications: Current Medications Medications (Trade) Dose Ordered Sig/Kassie Start Time Stop Time Status Last Admin Dose Admin Info (CONTRAST GIVEN -- Rx MONITORING) 1 each PRN DAILY PRN 06/17/20 15:45 06/19/20 15:44 Iohexol (Omnipaque 300 Mg/ml) 75 ml 1X ONCE 06/17/20 15:30 06/17/20 15:31 DC 06/17/20 17:20 75 ML Potassium Chloride (Klor-Con) 40 meq 1X ONCE 06/17/20 17:00 06/17/20 17:01 DC 06/17/20 17:00 40 MEQ Sodium Chloride 500 ml @ 500 mls/hr 1X ONCE 06/17/20 17:00 06/17/20 17:59 DC 06/17/20 17:30 500 MLS/HR Allergies: Allergies: Allergies Coded Allergies Type Severity Reaction Last Updated Verified No Known Medication Allergies Allergy Unknown 05/27/17 Yes Physical Exam: PE: Constitutional: Well developed, well nourished, no acute distress, non-toxic appearance. [] HENT: Normocephalic, atraumatic, bilateral external ears normal, nose normal. [] Eyes: PERRLA, EOMI, conjunctiva normal, no discharge. [] Neck: Normal range of motion, no stridor. [] Cardiovascular:Heart rate regular rhythm Lungs & Thorax: Respirations even and unlabored, no retractions, no respiratory distress, lungs CTA Abdomen: soft, no tenderness Skin: Warm, dry, no erythema, no rash; right upper arm: Dark bruising and warmth to the medial aspect concerning for hematoma versus cellulitis [] Extremities: Right upper extremity: no cyanosis, 1+ edema to right upper arm, right shoulder tenderness to palpation without crepitus, PMS intact Neurologic: Alert and oriented X 3, no focal deficits noted. [] Psychologic: Affect normal, judgement normal, mood normal. [] Current Patient Data: Labs: Laboratory Tests Test 06/17/20 14:45 06/17/20 17:15 White Blood Count 11.5 x10^3/uL (4.0-11.0) H Red Blood Count 4.23 x10^6/uL (3.50-5.40) Hemoglobin 14.1 g/dL (12.0-15.5) Hematocrit 39.8 % (36.0-47.0) Mean Corpuscular Volume 94 fL (79-100) Mean Corpuscular Hemoglobin 33 pg (25-35) Mean Corpuscular Hemoglobin Concent 35 g/dL (31-37) Red Cell Distribution Width 16.0 % (11.5-14.5) H Platelet Count 381 x10^3/uL (140-400) Neutrophils (%) (Auto) 84 % (31-73) H Lymphocytes (%) (Auto) 8 % (24-48) L Monocytes (%) (Auto) 6 % (0-9) Eosinophils (%) (Auto) 0 % (0-3) Basophils (%) (Auto) 1 % (0-3) Neutrophils # (Auto) 9.7 x10^3/uL (1.8-7.7) H Lymphocytes # (Auto) 1.0 x10^3/uL (1.0-4.8) Monocytes # (Auto) 0.7 x10^3/uL (0.0-1.1) Eosinophils # (Auto) 0.0 x10^3/uL (0.0-0.7) Basophils # (Auto) 0.1 x10^3/uL (0.0-0.2) Sodium Level 129 mmol/L (136-145) L Potassium Level 3.1 mmol/L (3.5-5.1) L Chloride Level 89 mmol/L (98-107) L Carbon Dioxide Level 30 mmol/L (21-32) Anion Gap 10 (6-14) Blood Urea Nitrogen 20 mg/dL (7-20) Creatinine 0.9 mg/dL (0.6-1.0) Estimated GFR (Cockcroft-Gault) 60.2 BUN/Creatinine Ratio 22 (6-20) H Glucose Level 128 mg/dL (70-99) H Calcium Level 9.9 mg/dL (8.5-10.1) Total Bilirubin 1.6 mg/dL (0.2-1.0) H Aspartate Amino Transferase (AST) 22 U/L (15-37) Alanine Aminotransferase (ALT) 21 U/L (14-59) Alkaline Phosphatase 113 U/L (46-116) Total Protein 8.3 g/dL (6.4-8.2) H Albumin 4.2 g/dL (3.4-5.0) Albumin/Globulin Ratio 1.0 (1.0-1.7) Prothrombin Time 19.3 SEC (11.7-14.0) H Prothrombin Time INR 1.7 (0.8-1.1) H Activated Partial Thromboplast Time 34 SEC (24-38) Laboratory Tests 06/17/20 14:45 Laboratory Tests 06/17/20 14:45 Vital Signs: Vital Signs Date Time Temp Pulse Resp B/P (MAP) Pulse Ox O2 Delivery O2 Flow Rate FiO2 06/17/20 20:25 98.1 84 20 163/70 (101) 94 Room Air 98.1 EKG: EK-A. fib rate of 94, no STEMI, read by Dr. Alfaro[] Radiology/Procedures: Radiology/Procedures: PROCEDURE: CT UPPER EXTREMTY W/CONTRST RT Exam: CT right upper extremity with contrast INDICATION: Right upper arm pain and bruising, no injury TECHNIQUE: Sequential axial images through the right upper extremity obtained following the administration of 75 mL of Isovue-370 IV contrast. Sagittal and coronal reformatted images were reconstructed from the axial data and reviewed. Comparisons: Radiograph same day FINDINGS: Bone mineralization is normal. There is mild osteoarthritic change at the glenohumeral joint and at the acromioclavicular joint space. Subacromial space is well-maintained. No acute fractures seen. There is nonopacification of a vein draining into the axillary vein seen on series 2 image 62. Otherwise, visualized vasculature is patent. There is mild fat stranding in the subcutaneous tissues involving the anterior right shoulder with some associated skin thickening. There are several 2 to 3 mm pulmonary nodules noted in the visualized right lung. IMPRESSION: 1. Fat stranding and skin thickening at the anterior right shoulder, may relate to cellulitis. Correlate with physical exam. 2. There is nonopacification of a vein in the axilla which drains into the axillary vein. This may be simply related to phase of contrast into flow dynamics. [place] with ultrasound. 3. No acute traumatic injury is identified. PROCEDURE: SHOULDER 2+V RIGHT Exam: Right shoulder 3 views INDICATION: Right shoulder pain TECHNIQUE: Frontal view of the right shoulder with internal and external rotation and transscapular Y view Comparisons: None FINDINGS: Bone mineralization is normal. There is mild degenerative change at the glenohumeral joint. Degenerative changes noted at the acromioclavicular joint. Subacromial joint space is well-maintained. Soft tissues are unremarkable. IMPRESSION: No acute osseous abnormality. PROCEDURE: VENOUS UPPER EXTREMITY RIGHT Right upper extremity venous Doppler dated 06/17/2020. No comparison available. Clinical data indication: Right arm bruising. FINDINGS: Grayscale, color-flow and spectral waveform analysis performed to include the deep venous system of the right upper extremity. There is normal compressibility, phasicity and augmentation of flow throughout. No filling defects are seen. IMPRESSION: No evidence of right upper extremity deep vein thrombosis. [] Course & Med Decision Making: Course & Med Decision Making Pertinent Labs and Imaging studies reviewed. (See chart for details) 79-year-old female presents emergency department with complaints of right upper arm bruising, swelling, pain, and warmth after applying Voltaren gel 3 days prior. Work-up included CBC, CMP, PT/INR, and a CT with contrast of the right upper extremity. CBC revealed a white blood cell count of 11.5; PT was 19.3, INR was 1.7; CMP revealed a sodium of 129, potassium of 3.1, chloride of 89, glucose of 128, bilirubin of 1.6, and elevated BUN/creatinine ratio of 22 CT of the extremity revealed fat stranding and skin thickening of the anterior right shoulder possibly related to cellulitis no acute traumatic injury, and mom opacification of the vein in the axilla that drains into the axillary vein possibly due to contrast flow recommended to follow-up with ultrasound. Ultrasound of the right upper extremity was negative for DVT. Patient was given a 500 bolus of NS in the emergency department for dehydration and 40 mEq of p.o. potassium for treatment of hypokalemia. spoke with Dr. Miller who is the admitting physician, and care was assumed following discussion of patient. Will admit patient for right arm cellulitis, hypokalemia, and dehydration. Patient's vital signs stable. Patient remains afebrile, appears nontoxic, respirations even and unlabored. Patient will be admitted to the med telemetry floor. Patient's case and plan of care also discussed with Dr. Alfaro [] Laura Disclaimer: Laura Disclaimer: This electronic medical record was generated, in whole or in part, using a voice recognition dictation system. Departure Departure Impression: Primary Impression: Cellulitis of right upper arm Additional Impressions: Hypokalemia Dehydration Disposition: 09 ADMITTED INPATIENT Admitting Physician: ASA Stewart) Condition: STABLE Referrals: KAMRAN MCALLISTER MD (PCP) Justicifation of Admission Dx: Justifications for Admission: Justification of Admission Dx: Yes Sepsis: Dehydration LUIS BROWN SEARCH STRATEGIST Jun 17, 2020 21:03
[2020-06-17] MEDS ORDERED: 0.9 % SODIUM CHLORIDE 10 ML DISP.SYRIN. IV PRN (21:15)
[2020-06-17] MEDS ORDERED: DOCUSATE SODIUM 100 MG CAPSULE. PO PRN (21:15)
[2020-06-17] MEDS ORDERED: guaiFENesin ORAL 200 MG/10 ML LIQUID. PO PRN (21:15)
[2020-06-17] MEDS ORDERED: ACETAMINOPHEN 325 MG TABLET. PO PRN (21:15)
[2020-06-17] MEDS ORDERED: LORazepam 0.5 MG TABLET PO PRN (21:15)
[2020-06-17] MEDS ORDERED: MAG HYDROX/ALUMINUM HYD/SIMETH 30 ML ORAL.SUSP PO PRN (21:15)
[2020-06-17] MEDS ORDERED: ONDANSETRON PF 4 MG/2 ML VIAL. IV PRN (21:15)
[2020-06-17] MEDS ORDERED: cloNIDine HCL 0.1 MG TABLET PO PRN (21:15)
[2020-06-17] MEDS ORDERED: ALBUTEROL SULFATE 2.5 MG/3 ML NEBU. NEB PRN (21:15)
[2020-06-17 22:40] VITALS: BP_SYST 111; BP_SYST 132; BP_DIAS 58; BP_DIAS 66
--- NOTE | 2020-06-17 22:48 | NUR ---
The patient, ALVIN CHAUHAN, 79 y/o, F admitted by ANALILIA SARAVIA MD, was given written information regarding hospital policies, unit procedures and contact persons. Valuables were checked and verified. Medications restarted.
[2020-06-18 02:45] VITALS: BP 130/63
[2020-06-18] MEDS: HYDROcodone/APAP 5/325MG 1 TAB TABLET PO PRN ×2 (02:48→08:52)
[2020-06-18 05:21] LABS: BASO % 1 % (0-3); EOS # 0.1 x10^3/uL (0.0-0.7); EOS % 1 % (0-3); HEMATOCRIT 35.7 % (36.0-47.0); HEMOGLOBIN 12.4 g/dL (12.0-15.5); LYMPH % 12 % (24-48); MEAN CORPUSCULAR HEMOGLOBIN 33 pg (25-35); MEAN CORPUSCULAR HGB CONC 35 g/dL (31-37); MEAN CORPUSCULAR VOLUME 95 fL (79-100); MONO % 11 % (0-9); NEUT # 6.7 x10^3/uL (1.8-7.7); NEUT % 75 % (31-73); PLATELET COUNT 305 x10^3/uL (140-400); RED BLOOD COUNT 3.76 x10^6/uL (3.50-5.40); RED CELL DISTRIBUTION WIDTH 15.3 % (11.5-14.5); WHITE BLOOD COUNT 8.9 x10^3/uL (4.0-11.0)
[2020-06-18 05:44] LABS: CALCIUM 9.2 mg/dL (8.5-10.1); CREATININE 0.6 mg/dL (0.6-1.0); GFR 96.2; POTASSIUM 3.7 mmol/L (3.5-5.1)
[2020-06-18] MEDS ORDERED: LEVOTHYROXINE 75 MCG TABLET PO SCH (06:00)
[2020-06-18 07:00] VITALS: BP 145/69
--- NOTE | 2020-06-18 07:11 | EKG ---
[facility] [address] [place] [address] Test Date: 2020-06-17 Test Time: 14:56:31 Pat Name: ALVIN CHAUHAN Department: Room: Gender: F Bar[employer] C[employer]: : [id number] Requested By: LUIS BROWN Order Number: [id number] Reading MD: Measurements Intervals Bird In Hand Rate: 94 P: MA: QRS: -53 QRSD: 176 T: 109 QT: 408 QTc: 516 Interpretive Statements IRREGULAR RHYTHM, NO P-WAVE FOUND ABNORMAL LEFT AXIS DEVIATION NON SPECIFIC INTRAVENTRICULAR BLOCK QRS(T) CONTOUR ABNORMALITY CONSISTENT WITH INFERIOR INFARCT POSSIBLY RECENT ABNORMAL ECG RI6.02 No previous ECG available for comparison
[2020-06-18] MEDS ORDERED: RIVAROXABAN 10 MG TABLET. PO SCH (08:00)
[2020-06-18] MEDS ORDERED: POTASSIUM CHLORIDE 20 MEQ TABLET.ER. PO SCH (08:00)
--- NOTE | 2020-06-18 08:22 | PDOC ---
[employer] PROGRESS NOTE Date of Service DOS: DATE: 06/18/20 TIME: 08:16 Chief Complaint Chief Complaint A/P: Right shoulder pain Subcutaneous Hematoma sec to voltaren gel Fat stranding and skin thickening at the anterior right shoulder, may relate to cellulitis. but appears to be ecchymosis , not cellulitis Mild to moderate aortic regurgitation. no significant aortic valvular stenosis. Mitral annular calcification is moderate. recent echo A-fib on xarelto Diabetes Hyponatremia - 2/2 diuretic with low PO intake Hypokalemia - 2/2 diuretic with low PO intake, hold HCTZ History of Present Illness History of Present Illness Ms Rebollar is an 79 yo F w/ PMHx DM2, HTN, afib who presents with pain and redness to her right shoulder since 06/15/2020, she feels this was after voltaren gel application by her son in a very generous fashion. She was noted with sodium of 129 and potassium of 3.1 which improved to 132 and 3.7 respectively after IV fluid resuscitation and holding her HCTZ. She and her son were advised to be less generous with application of Voltaren gel due to her right upper arm subcutaneous hemorrhage. Also to stop HCTZ and reduce dosing were stopped metformin therapy and follow-up as an outpatient with her primary care physician. Vitals/I&O Vitals/I&O: Vital Signs Date Time Temp Pulse Resp B/P (MAP) Pulse Ox O2 Delivery O2 Flow Rate FiO2 06/18/20 07:47 93 Room Air 06/18/20 07:00 97.7 68 16 145/69 (94) 97.7 I & O 06/17/20 06/17/20 06/18/20 15:00 23:00 07:00 Intake Total 600 ml 520 ml Output Total 200 ml 300 ml Balance 400 ml 220 ml Physical Exam General: Alert, Oriented X3, Cooperative, No acute distress, mild distress Abdomen: Normal bowel sounds, Soft Extremities: No cyanosis, No edema Skin: No breakdown Labs Labs: Laboratory Tests Test 06/17/20 14:45 06/17/20 17:15 06/18/20 04:05 06/18/20 07:28 White Blood Count 11.5 x10^3/uL (4.0-11.0) 8.9 x10^3/uL (4.0-11.0) Red Blood Count 4.23 x10^6/uL (3.50-5.40) 3.76 x10^6/uL (3.50-5.40) Hemoglobin 14.1 g/dL (12.0-15.5) 12.4 g/dL (12.0-15.5) Hematocrit 39.8 % (36.0-47.0) 35.7 % (36.0-47.0) Mean Corpuscular Volume 94 fL (79-100) 95 fL (79-100) Mean Corpuscular Hemoglobin 33 pg (25-35) 33 pg (25-35) Mean Corpuscular Hemoglobin Concent 35 g/dL (31-37) 35 g/dL (31-37) Red Cell Distribution Width 16.0 % (11.5-14.5) 15.3 % (11.5-14.5) Platelet Count 381 x10^3/uL (140-400) 305 x10^3/uL (140-400) Neutrophils (%) (Auto) 84 % (31-73) 75 % (31-73) Lymphocytes (%) (Auto) 8 % (24-48) 12 % (24-48) Monocytes (%) (Auto) 6 % (0-9) 11 % (0-9) Eosinophils (%) (Auto) 0 % (0-3) 1 % (0-3) Basophils (%) (Auto) 1 % (0-3) 1 % (0-3) Neutrophils # (Auto) 9.7 x10^3/uL (1.8-7.7) 6.7 x10^3/uL (1.8-7.7) Lymphocytes # (Auto) 1.0 x10^3/uL (1.0-4.8) 1.0 x10^3/uL (1.0-4.8) Monocytes # (Auto) 0.7 x10^3/uL (0.0-1.1) 1.0 x10^3/uL (0.0-1.1) Eosinophils # (Auto) 0.0 x10^3/uL (0.0-0.7) 0.1 x10^3/uL (0.0-0.7) Basophils # (Auto) 0.1 x10^3/uL (0.0-0.2) 0.0 x10^3/uL (0.0-0.2) Sodium Level 129 mmol/L (136-145) 132 mmol/L (136-145) Potassium Level 3.1 mmol/L (3.5-5.1) 3.7 mmol/L (3.5-5.1) Chloride Level 89 mmol/L (98-107) 96 mmol/L (98-107) Carbon Dioxide Level 30 mmol/L (21-32) 29 mmol/L (21-32) Anion Gap 10 (6-14) 7 (6-14) Blood Urea Nitrogen 20 mg/dL (7-20) 17 mg/dL (7-20) Creatinine 0.9 mg/dL (0.6-1.0) 0.6 mg/dL (0.6-1.0) Estimated GFR (Cockcroft-Gault) 60.2 96.2 BUN/Creatinine Ratio 22 (6-20) Glucose Level 128 mg/dL (70-99) 109 mg/dL (70-99) Calcium Level 9.9 mg/dL (8.5-10.1) 9.2 mg/dL (8.5-10.1) Total Bilirubin 1.6 mg/dL (0.2-1.0) Aspartate Amino Transf (AST/SGOT) 22 U/L (15-37) Alanine Aminotransferase (ALT/SGPT) 21 U/L (14-59) Alkaline Phosphatase 113 U/L (46-116) Total Protein 8.3 g/dL (6.4-8.2) Albumin 4.2 g/dL (3.4-5.0) Albumin/Globulin Ratio 1.0 (1.0-1.7) Prothrombin Time 19.3 SEC (11.7-14.0) Prothromb Time International Ratio 1.7 (0.8-1.1) Activated Partial Thromboplast Time 34 SEC (24-38) Glucose (Fingerstick) 105 mg/dL (70-99) Assessment and Plan Assessmemt and Plan Problems Medical Problems: (1) Cellulitis of right upper arm Status: Acute (2) Dehydration Status: Acute (3) Hypokalemia Status: Acute Comment Review of Relevant I have reviewed the following items ariadna (where applicable) has been applied. Medications: Current Medications Medications (Trade) Dose Ordered Sig/Kassie Route PRN Reason Start Time Stop Time Status Last Admin Dose Admin Iohexol (Omnipaque 300 Mg/ml) 75 ml 1X ONCE IV 06/17/20 15:30 06/17/20 15:31 DC 06/17/20 17:20 Sodium Chloride 500 ml @ 500 mls/hr 1X ONCE IV 06/17/20 17:00 06/17/20 17:59 DC 06/17/20 17:30 Potassium Chloride (Klor-Con) 40 meq 1X ONCE PO 06/17/20 17:00 06/17/20 17:01 DC 06/17/20 17:00 Acetaminophen/ Hydrocodone Bitart (Lortab 5/325) 1 tab PRN Q6HRS PRN PO MODERATE PAIN 4-6 06/17/20 18:15 06/18/20 02:48 Levothyroxine Sodium (Synthroid) 75 mcg DAILY06 PO 06/18/20 06:00 06/18/20 05:52 Oxybutynin Chloride (Ditropan) 5 mg [id number] PO 06/17/20 21:00 06/17/20 21:02 Clindamycin Phosphate 50 ml @ 100 mls/hr 1X ONCE IV 06/17/20 19:00 06/17/20 19:29 DC 06/17/20 19:54 Info (Anti-Coagulation Monitoring By Pharmacy) 1 each PRN DAILY PRN MC SEE COMMENTS 06/17/20 20:15 06/18/20 03:20 Potassium Chloride (Klor-Con) 20 meq 1X ONCE PO 06/17/20 21:30 06/17/20 21:31 DC 06/17/20 21:55 Justicifation of Admission Dx: Justifications for Admission: Justification of Admission Dx: Yes Sepsis: Dehydration Cellulitis: Cellulitis MICHEL FUENTES MD Jun 18, 2020 08:22
[2020-06-18] MEDS ORDERED: DEXTROSE 50% 25 GM / 50ML DISP.SYRIN. IV PRN (08:30)
[2020-06-18] MEDS: OXYBUTYNIN CHLORIDE 5 MG TABLET PO SCH (08:53)
[2020-06-18] MEDS ORDERED: hydroCHLOROthiazide 25 MG TABLET PO SCH (09:00)
--- NOTE | 2020-06-18 09:18 | NUR ---
SS following for discharge planning. SS reviewed pt chart and discussed with pt RN. Pt is from home and is currently on room air. ID consulted. SS will continue to follow for discharge planning.
--- NOTE | 2020-06-18 09:39 | PDOC ---
Infectious Disease Note Vital Sign Vital Signs Vital Signs Date Time Temp Pulse Resp B/P (MAP) Pulse Ox O2 Delivery O2 Flow Rate FiO2 06/18/20 08:52 18 Room Air 06/18/20 08:52 68 145/69 06/18/20 07:47 93 06/18/20 07:00 97.7 97.7 Labs Lab Laboratory Tests Test 06/17/20 14:45 06/17/20 17:15 06/18/20 04:05 06/18/20 07:28 White Blood Count 11.5 x10^3/uL (4.0-11.0) 8.9 x10^3/uL (4.0-11.0) Red Blood Count 4.23 x10^6/uL (3.50-5.40) 3.76 x10^6/uL (3.50-5.40) Hemoglobin 14.1 g/dL (12.0-15.5) 12.4 g/dL (12.0-15.5) Hematocrit 39.8 % (36.0-47.0) 35.7 % (36.0-47.0) Mean Corpuscular Volume 94 fL (79-100) 95 fL (79-100) Mean Corpuscular Hemoglobin 33 pg (25-35) 33 pg (25-35) Mean Corpuscular Hemoglobin Concent 35 g/dL (31-37) 35 g/dL (31-37) Red Cell Distribution Width 16.0 % (11.5-14.5) 15.3 % (11.5-14.5) Platelet Count 381 x10^3/uL (140-400) 305 x10^3/uL (140-400) Neutrophils (%) (Auto) 84 % (31-73) 75 % (31-73) Lymphocytes (%) (Auto) 8 % (24-48) 12 % (24-48) Monocytes (%) (Auto) 6 % (0-9) 11 % (0-9) Eosinophils (%) (Auto) 0 % (0-3) 1 % (0-3) Basophils (%) (Auto) 1 % (0-3) 1 % (0-3) Neutrophils # (Auto) 9.7 x10^3/uL (1.8-7.7) 6.7 x10^3/uL (1.8-7.7) Lymphocytes # (Auto) 1.0 x10^3/uL (1.0-4.8) 1.0 x10^3/uL (1.0-4.8) Monocytes # (Auto) 0.7 x10^3/uL (0.0-1.1) 1.0 x10^3/uL (0.0-1.1) Eosinophils # (Auto) 0.0 x10^3/uL (0.0-0.7) 0.1 x10^3/uL (0.0-0.7) Basophils # (Auto) 0.1 x10^3/uL (0.0-0.2) 0.0 x10^3/uL (0.0-0.2) Sodium Level 129 mmol/L (136-145) 132 mmol/L (136-145) Potassium Level 3.1 mmol/L (3.5-5.1) 3.7 mmol/L (3.5-5.1) Chloride Level 89 mmol/L (98-107) 96 mmol/L (98-107) Carbon Dioxide Level 30 mmol/L (21-32) 29 mmol/L (21-32) Anion Gap 10 (6-14) 7 (6-14) Blood Urea Nitrogen 20 mg/dL (7-20) 17 mg/dL (7-20) Creatinine 0.9 mg/dL (0.6-1.0) 0.6 mg/dL (0.6-1.0) Estimated GFR (Cockcroft-Gault) 60.2 96.2 BUN/Creatinine Ratio 22 (6-20) Glucose Level 128 mg/dL (70-99) 109 mg/dL (70-99) Calcium Level 9.9 mg/dL (8.5-10.1) 9.2 mg/dL (8.5-10.1) Total Bilirubin 1.6 mg/dL (0.2-1.0) Aspartate Amino Transf (AST/SGOT) 22 U/L (15-37) Alanine Aminotransferase (ALT/SGPT) 21 U/L (14-59) Alkaline Phosphatase 113 U/L (46-116) Total Protein 8.3 g/dL (6.4-8.2) Albumin 4.2 g/dL (3.4-5.0) Albumin/Globulin Ratio 1.0 (1.0-1.7) Prothrombin Time 19.3 SEC (11.7-14.0) Prothromb Time International Ratio 1.7 (0.8-1.1) Activated Partial Thromboplast Time 34 SEC (24-38) Glucose (Fingerstick) 105 mg/dL (70-99) Objective Assessment pt seen, consult dictated Plan Plan of Care / KASSANDRA SAWANT MD Jun 18, 2020 09:39
--- NOTE | 2020-06-18 09:42 | PDOC3 ---
Discharge Summary Visit Information Date of Admission: Jun 17, 2020 Date of Discharge: Jun 18, 2020 Admitting Diagnosis: Hyponatremia, hypokalemia Final Diagnosis Problems Medical Problems: (1) Cellulitis of right upper arm Status: Acute (2) Dehydration Status: Acute (3) Hypokalemia Status: Acute Brief Hospital Course Allergies Allergies Coded Allergies Type Severity Reaction Last Updated Verified No Known Medication Allergies Allergy Unknown 05/27/17 Yes Vital Signs Vital Signs Date Time Temp Pulse Resp B/P (MAP) Pulse Ox O2 Delivery O2 Flow Rate FiO2 06/18/20 08:52 18 Room Air 06/18/20 08:52 68 145/69 06/18/20 07:47 93 06/18/20 07:00 97.7 97.7 Lab Results Laboratory Tests Test 06/17/20 14:45 06/17/20 17:15 06/18/20 04:05 06/18/20 07:28 White Blood Count 11.5 x10^3/uL (4.0-11.0) 8.9 x10^3/uL (4.0-11.0) Red Blood Count 4.23 x10^6/uL (3.50-5.40) 3.76 x10^6/uL (3.50-5.40) Hemoglobin 14.1 g/dL (12.0-15.5) 12.4 g/dL (12.0-15.5) Hematocrit 39.8 % (36.0-47.0) 35.7 % (36.0-47.0) Mean Corpuscular Volume 94 fL (79-100) 95 fL (79-100) Mean Corpuscular Hemoglobin 33 pg (25-35) 33 pg (25-35) Mean Corpuscular Hemoglobin Concent 35 g/dL (31-37) 35 g/dL (31-37) Red Cell Distribution Width 16.0 % (11.5-14.5) 15.3 % (11.5-14.5) Platelet Count 381 x10^3/uL (140-400) 305 x10^3/uL (140-400) Neutrophils (%) (Auto) 84 % (31-73) 75 % (31-73) Lymphocytes (%) (Auto) 8 % (24-48) 12 % (24-48) Monocytes (%) (Auto) 6 % (0-9) 11 % (0-9) Eosinophils (%) (Auto) 0 % (0-3) 1 % (0-3) Basophils (%) (Auto) 1 % (0-3) 1 % (0-3) Neutrophils # (Auto) 9.7 x10^3/uL (1.8-7.7) 6.7 x10^3/uL (1.8-7.7) Lymphocytes # (Auto) 1.0 x10^3/uL (1.0-4.8) 1.0 x10^3/uL (1.0-4.8) Monocytes # (Auto) 0.7 x10^3/uL (0.0-1.1) 1.0 x10^3/uL (0.0-1.1) Eosinophils # (Auto) 0.0 x10^3/uL (0.0-0.7) 0.1 x10^3/uL (0.0-0.7) Basophils # (Auto) 0.1 x10^3/uL (0.0-0.2) 0.0 x10^3/uL (0.0-0.2) Sodium Level 129 mmol/L (136-145) 132 mmol/L (136-145) Potassium Level 3.1 mmol/L (3.5-5.1) 3.7 mmol/L (3.5-5.1) Chloride Level 89 mmol/L (98-107) 96 mmol/L (98-107) Carbon Dioxide Level 30 mmol/L (21-32) 29 mmol/L (21-32) Anion Gap 10 (6-14) 7 (6-14) Blood Urea Nitrogen 20 mg/dL (7-20) 17 mg/dL (7-20) Creatinine 0.9 mg/dL (0.6-1.0) 0.6 mg/dL (0.6-1.0) Estimated GFR (Cockcroft-Gault) 60.2 96.2 BUN/Creatinine Ratio 22 (6-20) Glucose Level 128 mg/dL (70-99) 109 mg/dL (70-99) Calcium Level 9.9 mg/dL (8.5-10.1) 9.2 mg/dL (8.5-10.1) Total Bilirubin 1.6 mg/dL (0.2-1.0) Aspartate Amino Transf (AST/SGOT) 22 U/L (15-37) Alanine Aminotransferase (ALT/SGPT) 21 U/L (14-59) Alkaline Phosphatase 113 U/L (46-116) Total Protein 8.3 g/dL (6.4-8.2) Albumin 4.2 g/dL (3.4-5.0) Albumin/Globulin Ratio 1.0 (1.0-1.7) Prothrombin Time 19.3 SEC (11.7-14.0) Prothromb Time International Ratio 1.7 (0.8-1.1) Activated Partial Thromboplast Time 34 SEC (24-38) Glucose (Fingerstick) 105 mg/dL (70-99) Laboratory Tests Test 06/17/20 14:45 06/17/20 17:15 06/18/20 04:05 06/18/20 07:28 White Blood Count 11.5 x10^3/uL (4.0-11.0) 8.9 x10^3/uL (4.0-11.0) Red Blood Count 4.23 x10^6/uL (3.50-5.40) 3.76 x10^6/uL (3.50-5.40) Hemoglobin 14.1 g/dL (12.0-15.5) 12.4 g/dL (12.0-15.5) Hematocrit 39.8 % (36.0-47.0) 35.7 % (36.0-47.0) Mean Corpuscular Volume 94 fL (79-100) 95 fL (79-100) Mean Corpuscular Hemoglobin 33 pg (25-35) 33 pg (25-35) Mean Corpuscular Hemoglobin Concent 35 g/dL (31-37) 35 g/dL (31-37) Red Cell Distribution Width 16.0 % (11.5-14.5) 15.3 % (11.5-14.5) Platelet Count 381 x10^3/uL (140-400) 305 x10^3/uL (140-400) Neutrophils (%) (Auto) 84 % (31-73) 75 % (31-73) Lymphocytes (%) (Auto) 8 % (24-48) 12 % (24-48) Monocytes (%) (Auto) 6 % (0-9) 11 % (0-9) Eosinophils (%) (Auto) 0 % (0-3) 1 % (0-3) Basophils (%) (Auto) 1 % (0-3) 1 % (0-3) Neutrophils # (Auto) 9.7 x10^3/uL (1.8-7.7) 6.7 x10^3/uL (1.8-7.7) Lymphocytes # (Auto) 1.0 x10^3/uL (1.0-4.8) 1.0 x10^3/uL (1.0-4.8) Monocytes # (Auto) 0.7 x10^3/uL (0.0-1.1) 1.0 x10^3/uL (0.0-1.1) Eosinophils # (Auto) 0.0 x10^3/uL (0.0-0.7) 0.1 x10^3/uL (0.0-0.7) Basophils # (Auto) 0.1 x10^3/uL (0.0-0.2) 0.0 x10^3/uL (0.0-0.2) Sodium Level 129 mmol/L (136-145) 132 mmol/L (136-145) Potassium Level 3.1 mmol/L (3.5-5.1) 3.7 mmol/L (3.5-5.1) Chloride Level 89 mmol/L (98-107) 96 mmol/L (98-107) Carbon Dioxide Level 30 mmol/L (21-32) 29 mmol/L (21-32) Anion Gap 10 (6-14) 7 (6-14) Blood Urea Nitrogen 20 mg/dL (7-20) 17 mg/dL (7-20) Creatinine 0.9 mg/dL (0.6-1.0) 0.6 mg/dL (0.6-1.0) Estimated GFR (Cockcroft-Gault) 60.2 96.2 BUN/Creatinine Ratio 22 (6-20) Glucose Level 128 mg/dL (70-99) 109 mg/dL (70-99) Calcium Level 9.9 mg/dL (8.5-10.1) 9.2 mg/dL (8.5-10.1) Total Bilirubin 1.6 mg/dL (0.2-1.0) Aspartate Amino Transf (AST/SGOT) 22 U/L (15-37) Alanine Aminotransferase (ALT/SGPT) 21 U/L (14-59) Alkaline Phosphatase 113 U/L (46-116) Total Protein 8.3 g/dL (6.4-8.2) Albumin 4.2 g/dL (3.4-5.0) Albumin/Globulin Ratio 1.0 (1.0-1.7) Prothrombin Time 19.3 SEC (11.7-14.0) Prothromb Time International Ratio 1.7 (0.8-1.1) Activated Partial Thromboplast Time 34 SEC (24-38) Glucose (Fingerstick) 105 mg/dL (70-99) Brief Hospital Course Ms Rebollar is an 79 yo F w/ PMHx DM2, HTN, afib who presents with pain and redness to her right shoulder since 06/15/2020, she feels this was after voltaren gel application by her son in a very generous fashion. She was noted with sodium of 129 and potassium of 3.1 which improved to 132 and 3.7 respectively after IV fluid resuscitation and holding her HCTZ. She and her son were advised to be less generous with application of Voltaren gel due to her right upper arm subcutaneous hemorrhage. Also to stop HCTZ and reduce dosing were stopped metformin therapy and follow-up as an outpatient with her primary care physician. Consults: ID - no indication for antibiotics Problem list: Right shoulder pain Subcutaneous Hematoma sec to voltaren gel Fat stranding and skin thickening at the anterior right shoulder, may relate to cellulitis. but appears to be ecchymosis , not cellulitis Mild to moderate aortic regurgitation. no significant aortic valvular stenosis. Mitral annular calcification is moderate. recent echo A-fib on xarelto Diabetes Hyponatremia - 2/2 diuretic with low PO intake Hypokalemia - 2/2 diuretic with low PO intake, hold HCTZ Greater than 30 minutes spent on d/c Discharge Information Condition at Discharge: Improved Follow Up: Weeks (1) Disposition/Orders: D/C to Home Scheduled Atorvastatin Calcium (Atorvastatin Calcium) 10 Mg Tablet, 1 TAB PO QODAY for , #30 Ref 5 (Reported) Entered as Reported by: CHANELL BEAVER on 05/28/171801 Last Action: Continued on 06/17/201815 by ANALILIA SARAVIA MD Diltiazem Hcl (Diltiazem 24HR Cd) 120 Mg Cap.er.24h, 120 MG PO DAILY for 30 Days, #30 Ref 5 Prescribed by: BRIANA PHAM MD on 03/13/18 1056 Last Action: Continued on 06/17/201815 by ANALILIA SARAVIA MD Levothyroxine Sodium (Levothyroxine Sodium) 75 Mcg Tablet, 1 TAB PO DAILY, #30 Ref 5 (Reported) Entered as Reported by: CHANELL BEAVER on 05/28/171801 Last Action: Continued on 06/17/201815 by ANALILIA SARAVIA MD Rivaroxaban (Xarelto) 20 Mg Tablet, 20 MG PO DAILY, (Reported) Entered as Reported by: Rosalio Todd on 03/22/17 1635 Last Action: Converted on 06/17/201815 by ANALILIA SARAVIA MD Trospium Chloride (Trospium Chloride) 20 Mg Tablet, 20 MG PO BID for , (Reported) Entered as Reported by: LUIS FELIPE HUBBARD RN on 04/13/202203 Last Action: Converted on 06/17/201815 by ANALILIA SARAVIA MD Scheduled PRN Hydrocodone Bit/Acetaminophen (Hydrocodone-Apap 5-325 ) 1 Tab Tablet, 1 TAB PO PRN Q6HRS PRN for PAIN, Ref 0 (Reported) Entered as Reported by: LUIS FELIPE HUBBARD RN on 04/13/202203 Last Action: Continued on 06/17/201815 by ANALILIA SARAVIA MD Discontinued Medications Hydrochlorothiazide (Hydrochlorothiazide Capsule ) 12.5 Mg Capsule, 25 MG PO DAILY for DIURETIC, Ref 0 (Reported) next dose tomorrow 07/13/16 at 9 AM Entered as Reported by: JANET ADAMES on 04/10/16 0910 Last Action: Continued on 06/17/201815 by ANALILIA SARAVIA MD Metformin Hcl (Metformin Hcl) 500 Mg Tablet, 1 TAB PO BID, #60 Ref 3 (Reported) RESUME ON 03/24/2017 AM Entered as Reported by: JANET ADAMES on 04/10/16 0910 Last Action: HELD on 06/17/201815 by ANALILIA SARAVIA MD Justicifation of Admission Dx: Justifications for Admission: Justification of Admission Dx: Yes Sepsis: Dehydration Cellulitis: Cellulitis MICHEL FUENTES MD Jun 18, 2020 09:42
--- NOTE | 2020-06-18 09:58 | CONS ---
DATE OF CONSULTATION: 06/18/2020 REQUESTING PHYSICIAN: Alonso Miller MD REASON FOR CONSULTATION: Question cellulitis, right shoulder. HISTORY OF PRESENT ILLNESS: This is an 79-year-old female with being on Xarelto, who came in with right upper extremity discoloration and pain. The patient denies any fall. Denies any trauma. Apparently, she was using the Voltaren on to the shoulder and she asked her son to apply it and son took too much Voltaren and applied it, she says. Denies any nausea, vomiting, diarrhea. Denies any fever. Denies any chest pain, shortness of breath, urinary symptoms or bowel symptoms. PAST MEDICAL HISTORY: Positive for diabetes mellitus, hypertension, hyperlipidemia, hypothyroidism, atrial fibrillation, congestive heart failure, CVA in the past, cardiomyopathy. SOCIAL HISTORY: Negative for smoking, alcohol, or illicit drug use. ALLERGIES: No known drug allergies. CURRENT MEDICATIONS: The patient received one dose of clindamycin. She is not on any antibiotics. REVIEW OF SYSTEMS: As per the HPI, all other systems reviewed and are negative. PHYSICAL EXAMINATION: GENERAL: Alert, oriented female, not in distress. VITAL SIGNS: Stable, afebrile. HEENT: NAD. NECK: Supple, no JVP, no lymphadenopathy. LUNGS: Clear. HEART: S1, S2 regular. ABDOMEN: Benign. EXTREMITIES: No edema, cyanosis. SKIN: The patient's shoulder area is unremarkable. The upper arm area has classic subcutaneous hemorrhage signs. There are no signs of cellulitis or infection. There is no palpable hematoma. Rest of skin examination is unremarkable. NEUROLOGIC: The patient is alert, awake and appropriate. No focal neurologic deficit. LABORATORY DATA: White count on admission was 11.5, now down to 8.9. BUN and creatinine is normal. Her CT of the upper extremity showed some skin thickening at the anterior right shoulder. There is no hematoma, no acute traumatic injury. No musculoskeletal changes. Ultrasound was unremarkable. IMPRESSION: 1. Right upper extremity discoloration, it is a subcutaneous hemorrhage. There is no cellulitis or infection. 2. Slight leukocytosis, reactive, has improved. 3. Diabetes. 4. Hypertension. 5. Congestive heart failure. 6. Hypothyroidism. RECOMMENDATIONS: We do not see the need for any antibiotics. Supportive care and the patient can be discharged from the infectious disease standpoint of view. Discussed with Dr. Castro. Thank you very much, Dr. Miller, for giving me the opportunity to participate in this patient's care. KASSANDRA SAWANT MD DR: KRISTEN/stephanie JOB#: [id number] / [id number] MIKEY
[2020-06-18 10:58] VITALS: BP 96/56
--- NOTE | 2020-06-18 11:30 | NUR ---
Discharge Note: ALVIN CHAUHAN Discharge instructions and discharge home medications reviewed with Patient and a copy given. All questions have been answered and understanding verbalized. Patient instructed to schedule appointment with primary care physician. The following instructions and handouts were given: hyponatremia, hypokalemia Discontinued lines and drains: Peripheral IV intact. Patient discharged to Home or Self Care with Self via Wheelchair
[2020-06-18] MEDS ORDERED: INSULIN LISPRO 300 UNITS/3 ML VIAL. SQ SCH (12:00)
[2020-06-19] MEDS ORDERED: ATORVASTATIN CALCIUM 10 MG TABLET. PO SCH (09:00)
[2020-07-15] MEDS ORDERED: MECO10005 PO (00:31)
[2020-07-15] MEDS ORDERED: HYDR-2145 PO (00:31)
[2020-07-15] MEDS ORDERED: FERR-36 PO (00:31)
[2020-07-15] MEDS ORDERED: METF500T16 PO (00:31)
[2020-07-15] MEDS ORDERED: PANT40TA77 PO (15:47)
[2020-07-15] MEDS ORDERED: SITA100T PO (15:47)
== END 2020-06-18 11:30 | disposition home or self-care (01) | DRG 315 ==
LOC: ER 11:57 → 2 SOUTH 18:00
PROVIDERS: ADMIT Family Medicine; ATTEND Family Medicine
DX: R58 Hemorrhage, not elsewhere classified (principal); E87.1 Hypo-osmolality and hyponatremia; I42.9 Cardiomyopathy, unspecified; S40.011A Contusion of right shoulder, initial encounter; S40.021A Contusion of right upper arm, initial encounter; T14.8XXA Other injury of unspecified body region, initial encounter; E87.6 Hypokalemia; E86.0 Dehydration; E03.9 Hypothyroidism, unspecified; E11.9 Type 2 diabetes mellitus without complications; E78.00 Pure hypercholesterolemia, unspecified; E78.5 Hyperlipidemia, unspecified; I11.0 Hypertensive heart disease with heart failure; I48.91 Unspecified atrial fibrillation; I50.9 Heart failure, unspecified; T50.2X5A Adverse effect of carbonic-anhydrase inhibitors, benzothiadiazides and other diuretics, initial encounter; Z79.01 Long term (current) use of anticoagulants; Z82.49 Family history of ischemic heart disease and other diseases of the circulatory system; Z86.73 Personal history of transient ischemic attack (TIA), and cerebral infarction without residual deficits; Z87.891 Personal history of nicotine dependence; Z90.710 Acquired absence of both cervix and uterus; M19.90 Unspecified osteoarthritis, unspecified site; X58.XXXA Exposure to other specified factors, initial encounter; Y93.89 Activity, other specified; Y92.89 Other specified places as the place of occurrence of the external cause; Y99.8 Other external cause status
CPT/HCPCS: 36415; 73030; 73201; 80048; 80053; 82962; 84300; 85025; 85610; 85730; 93005; 93971; 94760; 96360; 96361; 99285; J1815; J3490; J7040; Q9967; 97530-GP; G0378

== ENCOUNTER → 2020-08-30 | Outpatient (CLI) | payer MEDICARE ==
[2020-07-15 15:00] VITALS: BP 142/66
[~2020-08-30] MED LIST changes: -AMIO200T4 PO; +AMIO200T6 PO; +CYAN500T52 PO; +DILT120C71 PO; +DILT240C33 PO; +FERR-36 PO; +GUAI1CAP9 PO; +MECO10005 PO; +PANT40TA77 PO; +RIVA15TA PO; +SITA100T PO; +VIT1TABL96 PO
== END ==
LOC: LAB 10:05
PROVIDERS: ATTEND Internal Medicine Cardiovascular Disease
DX: Z01.812 Encounter for preprocedural laboratory examination (principal); I49.5 Sick sinus syndrome; Z20.828 Contact with and (suspected) exposure to other viral communicable diseases
CPT/HCPCS: U0003-CS

== ENCOUNTER 2020-10-14 14:09 | Emergency (ER) | payer MEDICARE ==
[~2020-10-14] VITALS: Ht 152.4 cm; Wt 70.0 kg
[~2020-10-14 14:09] MED LIST changes: +CYAN500T51 PO; -CYAN500T52 PO
[2020-10-14 14:29] VITALS: BP 160/72
--- NOTE | 2020-10-14 14:29 | ED.ADGEN ---
Past Medical History Past Medical History: A-Fib, CHF, CVA, Diabetes-Type II, High Cholesterol, Hypertension, Hypothyroid, UTI Additional Past Medical Histor: bladder infection heart cath cardiomyopathy possible CHF,URINARY FREQUENCY Past Surgical History: Hysterectomy, Other Additional Past Surgical Histo: heart cath Smoking Status: Former Smoker Alcohol Use: None Drug Use: None General Adult EDM: Chief Complaint: MECHANICAL FALL HPI: HPI: Patient is a 80 year old female coming in after a fall yesterday morning. P atient states she had tripped over her shoes fell in her kitchen and struck her left side on her sink. Was able to get up and ambulate afterwards. Normally ambulates without a walker. Says the pain is in her ribs but is now moving down to her no bleeding or hematuria. Patient is on Xarelto. And had a pacemaker placed about 6 weeks ago Review of Systems: Review of Systems: Constitutional: Denies fever or chills. [] Eyes: Denies change in visual acuity. [] HENT: Denies nasal congestion or sore throat. [] Respiratory: Denies cough or shortness of breath. [] Cardiovascular: Denies chest pain or edema. [] GI: Denies abdominal pain, nausea, vomiting, bloody stools or diarrhea. [] : Denies dysuria. [] Musculoskeletal: Denies back pain or joint pain. [] Integument: Denies rash. [] Neurologic: Denies headache, focal weakness or sensory changes. [] Endocrine: Denies polyuria or polydipsia. [] Lymphatic: Denies swollen glands. [] Psychiatric: Denies depression or anxiety. [] Current Medications: Current Medications Medications (Trade) Dose Ordered Sig/Kassie Start Time Stop Time Status Last Admin Dose Admin Lidocaine (Lidoderm) 1 patch 1X STAT 10/14/20 15:22 10/14/20 15:25 DC 10/14/20 15:22 1 PATCH Allergies: Allergies: Allergies Coded Allergies Type Severity Reaction Last Updated Verified No Known Medication Allergies Allergy Unknown 05/27/17 Yes Physical Exam: PE: Constitutional: Well developed, well nourished, no acute distress, non-toxic appearance. [] HENT: Normocephalic, atraumatic, bilateral external ears normal, oropharynx moist, no oral exudates, nose normal. [] Eyes: PERRLA, EOMI, conjunctiva normal, no discharge. [] Neck: Normal range of motion, no tenderness, supple, no stridor. [] Cardiovascular:Heart rate regular rhythm, no murmur [] Lungs & Thorax: Bilateral breath sounds clear to auscultation [] Abdomen: Bowel sounds normal, soft, no tenderness, no masses, no pulsatile roxane s. [] Skin: Warm, dry, no erythema, no rash. [] Back: No tenderness, no CVA tenderness. [] Extremities: No tenderness, no cyanosis, no clubbing, ROM intact, no edema. [] Neurologic: Alert and oriented X 3, normal motor function, normal sensory function, no focal deficits noted. [] Psychologic: Affect normal, judgement normal, mood normal. [] Current Patient Data: Vital Signs: Vital Signs Date Time Temp Pulse Resp B/P (MAP) Pulse Ox O2 Delivery O2 Flow Rate FiO2 10/14/20 14:29 97.8 71 18 160/72 (101) 95 Room Air 97.8 EKG: EKG: [] Heart Score: Risk Factors: Risk Factors: DM, Current or recent (<one month) smoker, HTN, HLP, family history of CAD, obesity. Risk Scores: Score 0 - 3: 2.5% MACE over next 6 weeks - Discharge Home Score 4 - 6: 20.3% MACE over next 6 weeks - Admit for Clinical Observation Score 7 - 10: 72.7% MACE over next 6 weeks - Early Invasive Strategies Radiology/Procedures: Radiology/Procedures: Exam: CT head and cervical spine without contrast INDICATION: Fall TECHNIQUE: Sequential axial images through the head and cervical spine were obtained without the administration of IV contrast. Comparisons: None FINDINGS: Head: No focal parenchymal lesion or hemorrhage is identified. There is no midline shift or sulcal effacement. Patchy hypodensity in the periventricular white matter. No acute vascular territory infarction is identified. Richey-white distinction is preserved. The ventricular system is within normal limits without compression hydrocephalus. The basal cisterns are well maintained. The visualized portions of the paranasal sinuses and mastoid air cells are well-pneumatized. No acute fractures. Cervical spine: Vertebral body heights and alignment are well-maintained. Fracture to the cervical spine is not identified. Multilevel spondylotic change in cervical spine with diffuse degenerative disc disease greatest at C5-C6 and C6-C7. Mild bilateral facet arthropathy is also noted. Visualized paraspinal soft tissues are unremarkable. IMPRESSION: 1. No acute intracranial abnormality. 2. Negative CT C-spine for acute traumatic injury. [] Exam: CT chest, abdomen and pelvis without contrast INDICATION: Fall, left rib and hip pain TECHNIQUE: Sequential axial images through the chest, abdomen and pelvis obtained without IV contrast. Sagittal and coronal reformatted images were reconstructed from the axial data and reviewed. Comparisons: None FINDINGS: Visualized portion of the thyroid unremarkable. No enlarged mediastinal lymph nodes are identified. Heart is enlarged. Pacer with leads terminating the right atrium and ventricle. No pericardial effusion. Thoracic aorta has a normal course and caliber. Pulmonary artery is not enlarged. Airways are patent. There is mosaic attenuation noted within the lungs likely related to air trapping. No consolidation or pneumothorax. 4 mm nodule at the right lower lobe series 2 image 30. Bandlike opacity at lung bases likely representing atelectasis. No pleural effusion or thickening. Evaluation of solid organs limited secondary to noncontrast technique. Liver, spleen, pancreas, gallbladder and adrenals are unremarkable. No perinephric inflammation or hydronephrosis. No renal or ureteral calculi are identified. Bladder is partially distended and appears thin-walled. Uterus is absent. No abnormal adnexal mass. Large and small bowel are unremarkable. Appendix is not identified. No free intra-abdominal air or fluid. No obstruction. Abdominal aorta has a normal course and caliber. No enlarged abdominal lymph nodes are identified. There is a mildly displaced fracture involving the lateral left ninth and 10th rib. IMPRESSION: 1. Mildly displaced fractures involving the left lateral ninth and 10th ribs. No underlying pneumothorax. 2. A 4 mm nodule in the right lower lobe. In a low-risk patient no further follow-up imaging is recommended. High-risk patient and optional one-year follow-up chest CT in the report. 3. No sequela of acute traumatic injury identified within the abdomen or pelvis. Course & Med Decision Making: Course & Med Decision Making Pertinent Labs and Imaging studies reviewed. (See chart for details) [] Dragon Disclaimer: Laura Disclaimer: This electronic medical record was generated, in whole or in part, using a voice recognition dictation system. Departure Departure Impression: Primary Impression: Fall Additional Impression: Left rib fracture Disposition: 01 DC HOME SELF CARE/HOMELESS Condition: STABLE Referrals: KAMRAN MCALLISTER MD (PCP) Patient Instructions: Rib Fracture, [id number] Scripts Lidocaine (Lidocaine) 1 Each Adh..patch 1 EACH TP DAILY PRN for PAIN for 10 Days, #10 PATCH Prov: MOIZ SRIVASTAVA MD 10/14/20 Acetaminophen With Codeine (ACETAMINOPHEN-COD #3 TABLET) 1 Each Tablet 1 TAB PO PRN Q4HRS PRN for PAIN for 5 Days, #15 TAB Prov: MOIZ SRIVASTAVA MD 10/14/20 Problem Qualifiers MOIZ SRIVASTAVA MD Oct 14, 2020 14:29
[2020-10-14] MEDS ORDERED: LIDOCAINE (700MG/PATCH) PATCH. TD STA (15:22)
--- NOTE | 2020-10-14 16:12 | RAD ---
Exam: CT chest, abdomen and pelvis without contrast INDICATION: Fall, left rib and hip pain TECHNIQUE: Sequential axial images through the chest, abdomen and pelvis obtained without IV contrast. Sagittal and coronal reformatted images were reconstructed from the axial data and reviewed. Comparisons: None FINDINGS: Visualized portion of the thyroid unremarkable. No enlarged mediastinal lymph nodes are identified. Heart is enlarged. Pacer with leads terminating the right atrium and ventricle. No pericardial effusion. Thoracic aorta has a normal course and caliber. Pulmonary artery is not enlarged. Airways are patent. There is mosaic attenuation noted within the lungs likely related to air trapping. No consolidation or pneumothorax. 4 mm nodule at the right lower lobe series 2 image 30. Bandlike opacity at lung bases likely representing atelectasis. No pleural effusion or thickening. Evaluation of solid organs limited secondary to noncontrast technique. Liver, spleen, pancreas, gallbladder and adrenals are unremarkable. No perinephric inflammation or hydronephrosis. No renal or ureteral calculi are identified. Bladder is partially distended and appears thin-walled. Uterus is absent. No abnormal adnexal mass. Large and small bowel are unremarkable. Appendix is not identified. No free intra-abdominal air or fluid. No obstruction. Abdominal aorta has a normal course and caliber. No enlarged abdominal lymph nodes are identified. There is a mildly displaced fracture involving the lateral left ninth and 10th rib. IMPRESSION: 1. Mildly displaced fractures involving the left lateral ninth and 10th ribs. No underlying pneumothorax. 2. A 4 mm nodule in the right lower lobe. In a low-risk patient no further follow-up imaging is recommended. High-risk patient and optional one-year follow-up chest CT in the report. 3. No sequela of acute traumatic injury identified within the abdomen or pelvis. Exposure: One or more of the following in the visualized dose reduction techniques were utilized for this examination: 1. Automated exposure control 2. Adjustment of the MA and/or KV according to patient size 3. Use of iterative of reconstructive technique Electronically signed by: Peter Trimble MD (10/14/2020 4:09 PM) [facility]
--- NOTE | 2020-10-14 16:17 | RAD ---
Exam: CT head and cervical spine without contrast INDICATION: Fall TECHNIQUE: Sequential axial images through the head and cervical spine were obtained without the administration of IV contrast. Comparisons: None FINDINGS: Head: No focal parenchymal lesion or hemorrhage is identified. There is no midline shift or sulcal effacement. Patchy hypodensity in the periventricular white matter. No acute vascular territory infarction is identified. Richey-white distinction is preserved. The ventricular system is within normal limits without compression hydrocephalus. The basal cisterns are well maintained. The visualized portions of the paranasal sinuses and mastoid air cells are well-pneumatized. No acute fractures. Cervical spine: Vertebral body heights and alignment are well-maintained. Fracture to the cervical spine is not identified. Multilevel spondylotic change in cervical spine with diffuse degenerative disc disease greatest at C5-C6 and C6-C7. Mild bilateral facet arthropathy is also noted. Visualized paraspinal soft tissues are unremarkable. IMPRESSION: 1. No acute intracranial abnormality. 2. Negative CT C-spine for acute traumatic injury. Exposure: One or more of the following in the visualized dose reduction techniques were utilized for this examination: 1. Automated exposure control 2. Adjustment of the MA and/or KV according to patient size Use of iterative of reconstructive technique Electronically signed by: Peter Trimble MD (10/14/2020 4:14 PM) [facility]
[2020-10-14] MEDS ORDERED: LIDO1ADH63 TP (16:30)
[2020-10-14] MEDS ORDERED: ACET1TAB33 PO (16:30)
== END 2020-10-14 17:12 | disposition home or self-care (01) ==
LOC: ER 14:09
DX: S22.42XA Multiple fractures of ribs, left side, initial encounter for closed fracture (principal); R51.9 Headache, unspecified; M54.2 Cervicalgia; I48.91 Unspecified atrial fibrillation; I11.0 Hypertensive heart disease with heart failure; I50.9 Heart failure, unspecified; E78.00 Pure hypercholesterolemia, unspecified; E11.9 Type 2 diabetes mellitus without complications; E03.9 Hypothyroidism, unspecified; Z86.73 Personal history of transient ischemic attack (TIA), and cerebral infarction without residual deficits; Z90.710 Acquired absence of both cervix and uterus; Z87.891 Personal history of nicotine dependence; Z95.0 Presence of cardiac pacemaker; W18.09XA Striking against other object with subsequent fall, initial encounter; Y93.89 Activity, other specified; Y92.89 Other specified places as the place of occurrence of the external cause; Y99.8 Other external cause status
CPT/HCPCS: 70450; 71250; 72125; 74176; 99285-25

== ENCOUNTER 2021-04-10 09:38 | Emergency (ER) | payer MEDICARE ==
[~2021-04-10] VITALS: Ht 152.4 cm; Wt 70.0 kg
[~2021-04-10 09:38] MED LIST changes: +ACET1TAB33 PO; -CYAN500T51 PO; +CYAN500T7 PO; +LIDO1ADH63 TP
--- NOTE | 2021-04-10 09:57 | PHYS DOC ---
Past Medical History Past Medical History: A-Fib, CHF, CVA, Diabetes-Type II, High Cholesterol, Hypertension, Hypothyroid, UTI Additional Past Medical Histor: bladder infection heart cath cardiomyopathy possible CHF,URINARY FREQUENCY Past Surgical History: Hysterectomy, Pacemaker, Other Additional Past Surgical Histo: heart cath Smoking Status: Former Smoker Alcohol Use: None Drug Use: None General Adult EDM: Chief Complaint: DIZZY/LIGHT HEADED HPI: HPI: This is a pleasant 80-year-old female presents emergency department today with dizziness. This started about 430 this morning when she woke up and was sitting down. She stood up and felt lightheaded. She then laid back down but her symptoms persisted. Since then she has felt lightheaded until arriving to the emergency department in which case her dizziness is now completely resolved. She denies any nausea or knee pain. She denies vomiting or fevers or chills. Currently the patient is asymptomatic. She does feel that if she were to stand up she would feel lightheaded again. NIH of 0. Review of systems negative for chest pain abdominal pain vomiting diaphoresis fevers or chills. She denies dysuria polyuria or hematuria. All other review of systems negative. Heart Score: C/O Chest Pain: No Risk Factors: Risk Factors: DM, Current or recent (<one month) smoker, HTN, HLP, family histo ry of CAD, obesity. Risk Scores: Score 0 - 3: 2.5% MACE over next 6 weeks - Discharge Home Score 4 - 6: 20.3% MACE over next 6 weeks - Admit for Clinical Observation Score 7 - 10: 72.7% MACE over next 6 weeks - Early Invasive Strategies Allergies: Allergies: Allergies Coded Allergies Type Severity Reaction Last Updated Verified No Known Medication Allergies Allergy Unknown 05/27/17 Yes Physical Exam: PE: Constitutional: Well developed, well nourished, no acute distress, non-toxic appearance. [] HENT: Normocephalic, atraumatic, bilateral external ears normal, oropharynx moist, no oral exudates, nose normal. [] Eyes: PERRLA, EOMI, conjunctiva normal, no discharge. [] Neck: Normal range of motion, no tenderness, supple, no stridor. [] Cardiovascular:Heart rate regular rhythm, no murmur [] Lungs & Thorax: Bilateral breath sounds clear to auscultation [] Abdomen: Bowel sounds normal, soft, no tenderness, no masses, no pulsatile masses. [] Skin: Warm, dry, no erythema, no rash. [] Back: No tenderness, no CVA tenderness. [] Extremities: No tenderness, no cyanosis, no clubbing, ROM intact, no edema. [] Neurologic: Mental status: Awake oriented and alert x3 Cranial nerves: Extraocular movements intact, eyebrows haily bilaterally, smile symmetric, uvula elevation nl, shoulder shrug intact bilaterally, tongue protrusion normal Clear speech. Normal [id number] bilaterally. No dysdiadochokinesia. Normal wjrf-ne-pafv bilaterally. Sensation: equal and normal in all extremities Strength: 5/5 in upper and lower extremities bilaterally Psychologic: Affect normal, judgement normal, mood normal. [] EKG: EKG: EKG shows a paced rhythm. Left bundle branch block pattern present. Not suggestive of acute ischemia. Scar Bosa negative. Regular rate. [] Radiology/Procedures: Radiology/Procedures: [] Course & Med Decision Making: Course & Med Decision Making Pertinent Labs and Imaging studies reviewed. (See chart for details) [On reevaluation the patient continues to be asymptomatic. Her work-up thus far shows an old stroke which she believes happened about 4 years ago. Otherwise no acute findings on her emergency department work-up here. I spoke with cardiology who wanted us to do orthostatic vital signs. We will give her a 500 cc fluid bolus here. We will interrogate her pacemaker. The time is now 11:48 AM. Time is now 1:08 PM. Patient's orthostatic vital signs are within normal limits. Patient received half liter of normal saline in the emergency department she continues to be asymptomatic. Cardiology asked us to interrogate the pacemaker. We called for the device interrogator who has arrived and is currently working on it.(correction I was under the understanding that they were here. They had not arrived.[id number]) Cardiology plans to come and evaluate the patient down in the emergency room. The time is now 1326. I just received a call from [employer]. She reports she is planning on coming to do the interrogation however she is needing to go to [place] first. She checked the home monitoring which did not show any arrhythmias. Dr. Resendez was able to come evaluate the patient and the emergency department. Patient continues to be asymptomatic and is well-appearing. He recommends discharge with outpatient follow-up. Patient is comfortable with plan. Will discharge to follow-up with PCP in 1 to 2 days and follow-up with cardiology within the next 5 to 7 days. Pt is asymptomatic on discharge. She is to return if her dizziness returns. Laura Disclaimer: Laura Disclaimer: This electronic medical record was generated, in whole or in part, using a voice recognition dictation system. Departure Departure Impression: Primary Impression: Dizzy Disposition: 01 HOME / SELF CARE / HOMELESS Condition: STABLE Referrals: KAMRAN MCALLISTER MD (PCP) Patient Instructions: Dizziness Additional Instructions: EMERGENCY DEPARTMENT GENERAL DISCHARGE INSTRUCTIONS Follow-up with your primary physician in 1 to 2 days. Return to the emergency department if you have any new or concerning findings. Thank you for coming to [facility] Emergency Department (ED) today and trusting us with you care. We trust that you had a positive experience in our Emergency Department. If you wish to speak to the department management, you may call the Director at [phone]. Follow up is important in emergency/acute care visits. This condition should be evaluated by your primary care physician and any necessary consulting services for continued management within a few days (1-2) after discharge. Return to the emergency department if you have any new or concerning symptoms including but not limited to fever, chills, nausea, vomiting, intractable pain, any new rashes, chest pain, shortness of breath, uncontrolled bleeding, difficulty breathing, and/or vision loss. 1. Do you have a private Doctor? If you do not have a private doctor, please ask for a resource list of physicians or clinics that may be able to assist you with follow up care. 2. If a lab test or culture has been done and does not come back immediately, your results will be reviewed and you will be notified if you need a change in treatment. 3. Your care today has been supervised by a physician who is specially trained in emergency care. Many problems require more than one evaluation for a complete diagnosis and treatment. We recommend that you schedule your follow up appointment as recommended to ensure complete treatment of you illness or injury. If you are unable to obtain follow up care and continue to have a problem, or if your condition worsens, we recommend that you return to the ED. 4. We are not able to safely determine your condition over the phone nor are we able to give sound medical advice over the phone. For these safety reasons, if you call for medical advice we will ask you to come to the ED for further evaluation. IF YOUR SYMPTOMS WORSEN OR NEW SYMPTOMS DEVELOP, OR YOU HAVE CONCERNS ABOUT YOUR CONDITION; OR IF YOUR CONDITION WORSENS WHILE YOU ARE WAITING FOR YOUR FOLLOW UP APPOINTMENT; EITHER CONTACT YOUR PRIMARY CARE DOCTOR, THE PHYSICIAN WHOSE NAME AND NUMBER YOU WERE GIVEN, OR RETURN TO THE ED IMMEDIATELY. CHER العراقي MD April 10, 2021 09:57
[2021-04-10 10:03] LABS: BILIRUBIN,URINE NEGATIVE (NEG); CLARITY,URINE CLEAR; COLOR,URINE YELLOW; NITRITE,URINE NEGATIVE (NEG); PROTEIN,URINE NEGATIVE (NEG-TRACE)
[2021-04-10 10:09] LABS: BACTERIA,URINE 0 /HPF (0-FEW); WBC,URINE OCC /HPF (0-4)
[2021-04-10 10:10] LABS: BASO # 0.1 x10^3/uL (0.0-0.2); BASO % 1 % (0-3); EOS # 0.1 x10^3/uL (0.0-0.7); EOS % 2 % (0-3); HEMATOCRIT 39.4 % (36.0-47.0); HEMOGLOBIN 13.5 g/dL (12.0-15.5); LYMPH # 1.3 x10^3/uL (1.0-4.8); LYMPH % 19 % (24-48); MEAN CORPUSCULAR HEMOGLOBIN 33 pg (25-35); MEAN CORPUSCULAR HGB CONC 34 g/dL (31-37); MEAN CORPUSCULAR VOLUME 96 fL (79-100); MONO # 0.5 x10^3/uL (0.0-1.1); MONO % 7 % (0-9); NEUT # 4.7 x10^3/uL (1.8-7.7); NEUT % 71 % (31-73); PLATELET COUNT 342 x10^3/uL (140-400); RED BLOOD COUNT 4.12 x10^6/uL (3.50-5.40); WHITE BLOOD COUNT 6.6 x10^3/uL (4.0-11.0)
[2021-04-10 10:20] LABS: CALCIUM 9.6 mg/dL (8.5-10.1); CREATININE 0.8 mg/dL (0.6-1.0); GFR 68.8; POTASSIUM 4.3 mmol/L (3.5-5.1)
[2021-04-10 10:26] LABS: ALBUMIN 4.1 g/dL (3.4-5.0); ALBUMIN/GLOBULIN RATIO 1.2 (1.0-1.7); MAGNESIUM 2.2 mg/dL (1.8-2.4); TOTAL BILIRUBIN 0.8 mg/dL (0.2-1.0); TOTAL PROTEIN 7.5 g/dL (6.4-8.2)
[2021-04-10] MEDS: IOHEXOL 350 MG/ML 100 ML VIAL. IV ONE (10:29)
--- NOTE | 2021-04-10 10:41 | RAD ---
EXAM: Head CT without contrast. HISTORY: Dizziness. TECHNIQUE: Computed tomographic images of the head were obtained without contrast. *One or more of the following individualized dose reduction techniques were utilized for this examina tion: 1. Automated exposure control. 2. Adjustment of the mA and/or kV according to patient size. 3. Use of iterative reconstruction technique. COMPARISON: 10/14/2020. FINDINGS: There is no acute or subacute extra-axial or intraparenchymal hemorrhage. There is no mass effect or midline shift. There is no hydrocephalus. There is stable encephalomalacia within the left parietal lobe likely due to chronic infarction. Ther e is decreased attenuation within the cerebral white matter likely due to chronic small vessel diseas e. There is age-appropriate cerebral volume loss. The visualized portions of the orbits, paranasal sinuses and mastoid air cells are unremarkable. No s uspicious calvarial lesion is seen. IMPRESSION: 1. No acute intracranial finding. Note is made that MRI is more sensitive for acute infarction. 2. Stable chronic infarct within the left parietal lobe and bilateral cerebral white matter changes, likely due to chronic small vessel disease. 3. Cerebral volume loss. Electronically signed by: Gretta Daily MD (04/10/2021 10:38 AM) [id number]
--- NOTE | 2021-04-10 11:14 | RAD ---
EXAM: CHEST ONE VIEW. HISTORY: Dizziness. COMPARISON: 09/03/2020. FINDINGS: A frontal view of the chest is obtained. A left-sided pacemaker has its leads in the right atrium and right ventricle. There are no confluent infiltrates. There is a calcified granuloma in the left base. There is no pneu mothorax or pleural effusion. The heart is mildly enlarged. There are atherosclerotic calcifications of the aorta. IMPRESSION: 1. Mild cardiomegaly. Electronically signed by: Wm Mobley MD (04/10/2021 11:12 AM) [facility]
--- NOTE | 2021-04-10 11:20 | RAD ---
EXAM: 1. CTA HEAD WITH AND WITHOUT CONTRAST. 2. CTA NECK WITH AND WITHOUT CONTRAST. HISTORY: Dizziness. TECHNIQUE: Computed tomographic angiography of the head and neck was performed before and after the i ntravenous administration of iodinated contrast. Three-dimensional reconstructions were also performe d. One or more of the following individualized dose reduction techniques were utilized for this exami nation: 1. Automated exposure control. 2. Adjustment of the mA and/or kV according to patient size. 3. Use of iterative reconstruction technique. COMPARISON: Today's head CT. FINDINGS: Angiographic findings: There is a common origin of the left common carotid and brachiocephalic arteri es, a variant of normal. There is no arch vessel stenosis. Both common carotid arteries are patent without stenosis. Both internal carotid arteries are patent w ithout stenosis. The external carotid systems are patent. The vertebral arteries are patent. The basilar artery is patent. Both posterior cerebral arteries are patent. The posterior communicatin g arteries are visualized. There are mild atherosclerotic calcifications along the cavernous internal carotid arteries without s ignificant stenosis. The middle cerebral arteries are patent. The anterior cerebral arteries are pickens nt. The anterior communicating artery is visualized. Nonangiographic findings: There is no intracranial hemorrhage. There is a chronic infarct along the l eft parietal lobe. There is mild chronic microangiopathic white matter change elsewhere. Prominence of the lateral ventricles and hemispheric sulci indicate mild atrophy. The paranasal sinuses appear clear. The orbits are unremarkable. The temporal bones are unremarkable. Bone windows reveal no suspicious lesions. The lung apices demonstrate no acute abnormality. A left pacemaker is partially visualized. The parotid glands and submandibular glands are unremarkable. The thyroid gland demonstrates no suspi cious lesions. There are no laryngeal or pharyngeal masses. There are no pathologically enlarged lymph nodes. IMPRESSION: 1. No hemodynamically significant cervical arterial stenosis. 2. No intracranial stenosis or aneurysm. 3. Chronic left parietal infarct. PQRS Compliance Statement - Stenosis calculations for CT, MR and conventional angiography are based u giovanni measurement of the distal ICA diameter in accordance with the NASCET methodology. Stenosis calcu lations for carotid ultrasound studies are derived from validated velocity criteria which are known t o correlate with the NASCET methodology. Electronically signed by: Wm Mobley MD (04/10/2021 11:18 AM) [facility]
[2021-04-10] MEDS: IV NORMAL SALINE 500ML BAG 500 ML IV ONE (12:50)
[2021-04-10 15:06] VITALS: BP 183/82
== END 2021-04-10 15:30 | disposition home or self-care (01) ==
LOC: ER 09:38
DX: R42 Dizziness and giddiness (principal); I48.91 Unspecified atrial fibrillation; I11.0 Hypertensive heart disease with heart failure; I50.9 Heart failure, unspecified; E11.9 Type 2 diabetes mellitus without complications; E78.00 Pure hypercholesterolemia, unspecified; E03.9 Hypothyroidism, unspecified; Z87.440 Personal history of urinary (tract) infections; Z95.0 Presence of cardiac pacemaker
CPT/HCPCS: 36415; 70450; 70496; 70498; 71045; 80053; 81001; 83735; 84484; 85025; 93005; 96365; 99285; J7040; Q9967; 96360

== ENCOUNTER → 2021-05-13 | Outpatient (CLI) | payer MEDICARE ==
--- NOTE | 2021-05-14 20:35 | CARD ---
MR#: [id number] Date of Study: 05/13/2021 Ordering Physician: GARCIA SR, Referring Physician: GARCIA SR Tech: Renata Salas [facility] APPROVED REPORT EXAM: Two-dimensional and M-mode echocardiogram with Doppler and color Doppler. Other Information Quality : AverageHR: 81bpm Rhythm : NSR INDICATION RISK FACTORS Hypertension Hyperlipidemia 2D DIMENSIONS RVDd4.3 (2.9-3.5cm)Left Atrium(2D)4.8 (1.6-4.0cm) IVSd1.5 (0.7-1.1cm)Aortic Root(2D)2.5 (2.0-3.7cm) LVDd4.0 (3.9-5.9cm)LVOT Diameter1.7 (1.8-2.4cm) PWd1.6 (0.7-1.1cm)LVDs1.8 (2.5-4.0cm) FS (%) 55.4 %SV60.6 ml LVEF(%)86.4 (>50%) Aortic Valve AoV Peak Rodrigo.318.5cm/Ira Peak GR.52.2mmHg LVOT Peak Rodrigo.283.2cm/sAVA (VMAX)1.97cm2 Pulmonary Valve PV Peak Anmbncxj286.4cm/s Tricuspid Valve TR P. [id number]/sTR Peak Gr.37mmHg LEFT VENTRICLE The left ventricle is normal size. There is moderate concentric left ventricular hypertrophy. The lef t ventricular systolic function is normal. Estimated ejection fraction 65-70%. There is normal LV se gmental wall motion. Transmitral Doppler flow pattern is Grade II-pseudonormal filling dynamics. RIGHT VENTRICLE The right ventricle is normal size. There is normal right ventricular wall thickness. The right ventr icular systolic function is normal. ATRIA The left atrium is moderately dilated. The right atrium size is normal. The interatrial septum is int act with no evidence for an atrial septal defect or patent foramen ovale as noted on 2-D or Doppler i maging. AORTIC VALVE The aortic valve is calcified but opens well. Doppler and Color Flow revealed mild aortic regurgitati on. There is no significant aortic valvular stenosis. MITRAL VALVE The mitral valve is calcified but opens well. There is no evidence of mitral valve prolapse. There is no mitral valve stenosis. Doppler and Color-flow revealed mild mitral regurgitation. TRICUSPID VALVE The tricuspid valve is normal in structure and function. Doppler and Color Flow revealed mild to mode rate tricuspid regurgitation. Estimated 40-45%. There is no tricuspid valve stenosis. PULMONIC VALVE The pulmonary valve is normal in structure and function. Doppler and Color Flow revealed mild pulmoni c valvular regurgitation. GREAT VESSELS The aortic root is normal in size. The ascending aorta is normal in size. The IVC is normal in size a nd collapses >50% with inspiration. PERICARDIAL EFFUSION There is no evidence of significant pericardial effusion. Critical Notification Critical Value: No <Conclusion> The left ventricular systolic function is normal. Estimated ejection fraction 65-70%. There is moderate concentric left ventricular hypertrophy. The left atrium is moderately dilated. Probable LVOT obstruction with peag gradient 52 mm Hg consistent with patient's known diagnosis of HO CM. Valsalva maneuver not performed. Mild aortic regurgitation. Mild mitral regurgitation. Mild to moderate tricuspid regurgitation. Estimated 40-45%. There is no evidence of significant pericardial effusion. Signed by : Garcia Sr, Electronically Approved : 05/14/2021 20:35:22
== END ==
LOC: ECHO 14:35
PROVIDERS: ATTEND Internal Medicine Cardiovascular Disease
DX: I08.8 Other rheumatic multiple valve diseases (principal); I11.9 Hypertensive heart disease without heart failure; I42.1 Obstructive hypertrophic cardiomyopathy
CPT/HCPCS: 93306